=== PATIENT | female | born 1945 | race Caucasian/White ===

== ENCOUNTER → 2016-06-02 | Outpatient (CLI) | payer OTHER ==
[~2016-06-02] MED LIST: ACETAMINOPHEN PO; CHOL1CAP57 PO; CYAN500T13 PO; DXM/4 PO; FERR1TAB23 PO; FNTTP25 TOP; HYDR1SOL10 PO; HYDROCODONE PO; MAGIC1 PO; MRN/25 PO; MULT-513 PO; ONDA4TAB4 PO; SODI5OIN4; TOBR0.3S; [UNRECOGNIZED DRUG - CODE]
--- NOTE | 2016-06-02 14:39 | DIAGNOSTIC IMAGING REPORT ---
CT SCAN OF THE CHEST, ABDOMEN, AND PELVIS WITH IV CONTRAST CLINICAL HISTORY: Colorectal carcinoma. COMPARISON STUDY: CT scan of the chest, abdomen, and pelvis dated 03/17/2016. Chest CT dated 03/20/2014. Abdominal CT dated 03/15/2014.rrrrrr TECHNIQUE: Following the IV administration of 92 of Optiray 320, CT scan of the chest, abdomen, and pelvis was performed from the thoracic inlet to the proximal femora. Images are reviewed in the axial, sagittal, and coronal planes. IV contrast was administered without complication. Automated dose control exposure was utilized. CT DOSE: 453.11 mGycm FINDINGS: CHEST: Thyroid: Imaged portions of the thyroid gland are normal in size and attenuation. Thoracic aorta: There is atherosclerotic calcification of the thoracic aorta, which is normal in caliber and demonstrates standard 3-vessel arch anatomy. No dissection is seen. A right internal jugular central venous infusion port is in place. Pulmonary vasculature: The pulmonary trunk is normal in caliber. There are no filling defects identified in the central pulmonary vessels to indicate pulmonary was. Note that this examination was not protocoled for evaluation of the pulmonary arteries. Heart: The heart is normal in size and configuration, and without pericardial effusion. There are scattered coronary artery calcifications. Lungs and pleural spaces: There is no airspace consolidation or pleural effusion. Multifocal pulmonary metastatic disease is overall similar in appearance to the 03/17/2016 examination. There are greater than 30 lesions. Presented lesions at the left apex on image #62 measuring 7 mm and in the lingula on image #140 measuring 9 mm are not significant changed. There is increasing soft tissue thickening and nodularity in the right middle lobe along the major fissure seen on image #151. This measures 1.1 x 2.4 cm (previously measuring up to 0.6 cm in thickness). The trachea and central airways are clear. Mediastinum: There are mildly enlarged mediastinal lymph nodes. These have slightly increased in size from 03/17/2016. A prevascular node on image #103 measures 7 mm short axis (previously measuring 3 mm). A subcarinal node on image #121 measures 12 mm short axis (previously measuring 7 mm). Kellee: Prominent hilar lymph nodes measure up to 6 mm in short axis. Axillae: There is no axillary lymphadenopathy. Bony thorax: The skeletal structures are osteopenic. No lytic or blastic lesions are identified. ABDOMEN AND PELVIS: Liver: The contrast-enhanced liver is normal in size, contour, and attenuation. There is no intrahepatic or ductal dilatation. The hepatic veins and portal veins are patent. A 10 mm low-attenuation lesion segment VIII seen on image #86 and a 10 mm low-attenuation lesion in segment IVb seen on image #98 are new from 03/17/2016 and concerning for metastatic disease. Gallbladder: Unremarkable. Spleen: Normal in size and attenuation. Pancreas: Unremarkable. Adrenal glands: Unremarkable. Kidneys: There is markedly asymmetric cortical atrophy of the left kidney as compared to the right. There is left hydroureteronephrosis to the level of the central necrotic retroperitoneal lymphadenopathy. There is no right-sided hydronephrosis. There is diminished enhancement of the left kidney as compared to the right. The right kidney enhances homogeneously. Abdominal vasculature: The abdominal aorta is normal in course and caliber noting moderate atherosclerotic calcification. Bowel: There are postoperative changes from partial colectomy with transverse colostomy. A mucous fistula is present. No bowel obstruction is seen. The appendix is well-visualized and normal. Peritoneum: There is no intraperitoneal free air or abdominal ascites. An 8 mm peritoneal nodule in the left upper quadrant on image 130 is new from the 2014 examination and consistent with a peritoneal metastasis. Lymphadenopathy: Left iliac chain lymphadenopathy is modestly increased in size from 03/17/2016. This measures 2.7 x 2.0 cm in axial dimension (previously measuring 2.2 x 1.8 cm). A left periaortic node on image #156 has increased in size, now measuring up to 11 mm. Pelvic viscera: The bladder is decompressed and grossly unremarkable. A midline pelvic mass is similar appearance to 03/17/2016 examination and measures approximately 7 x 5 x 5 cm. Skeletal structures: The skeletal structures are osteopenic. There is mild lumbosacral spondylosis. No lytic or blastic lesions are seen. IMPRESSION: 1. Findings are consistent with modest progression of disease as compared to 03/17/2016. 2. Multifocal pulmonary metastatic disease is largely similar to the prior study. There is increasing soft tissue thickening and nodularity in the right middle lobe along the major fissure. 3. Mildly enlarged mediastinal lymph nodes have also modestly increased in size from previous 4. There are two new 10 mm low-attenuation hepatic lesions which are highly concerning for developing hepatic metastases. 5. Modest increase in size in of retroperitoneal and left iliac chain lymphadenopathy. 6. A peritoneal implant in the left upper quadrant is similar to 03/17/2016. 7. A heterogeneous mass in the midline pelvis is overall similar to previous. 8. There are postoperative changes from partial colon resection with transverse colostomy. No bowel obstruction is seen. 9. The left kidney is markedly atrophic and there is left hydroureteronephrosis to the level of left iliac chain adenopathy. This is similar to previous. Electronically signed by: Jose A Garcia M.D. 06/02/2016 2:36 PM Dictated Date/Time: 06/02/2016 2:12 PM
== END | disposition home or self-care (01) ==
LOC: C.CTS 13:45
PROVIDERS: ATTEND Nurse Practitioner
DX: C18.7 Malignant neoplasm of sigmoid colon (principal); C78.00 Secondary malignant neoplasm of unspecified lung; K76.9 Liver disease, unspecified; N26.1 Atrophy of kidney (terminal); N13.30 Unspecified hydronephrosis; R59.0 Localized enlarged lymph nodes

== ENCOUNTER → 2016-09-07 | Outpatient (CLI) | payer OTHER ==
--- NOTE | 2016-09-07 15:05 | DIAGNOSTIC IMAGING REPORT ---
PET/CT CLINICAL HISTORY: Metastatic colorectal carcinoma. TECHNIQUE: A PET/CT was performed from the skull base through the upper thighs following intravenous injection of 12.94 mCi of F 18 FDG IV. The injection was performed at 9:44 AM on September 07, 2016 and imaging began at 10:50 AM on September 07, 2016. Unenhanced CT was performed for attenuation correction purposes and anatomic localization. CT DOSE: 164.50 mGycm COMPARISON STUDY: PET/CT April 11, [address] of the chest, abdomen and pelvis June 02, 2016. FINDINGS: Head and neck: The left maxillary sinus is largely opacified with an air-fluid level. No cervical lymphadenopathy is present. There is no suspicious FDG uptake within the neck. A right internal jugular [id number] is in place. Chest: There has been interval development of a moderate right pleural effusion since chest CT of June 02, 2016. This is likely malignant. Innumerable pulmonary nodules have increased in size and number since exam of June 02, 2016. These include a 1.5 cm left lower lobe nodule shown image 112 of 263. This previously measured 0.8 cm. A 1.4 cm right lower lobe shown on image 105 previously measured 0.7 cm. These nodules demonstrate moderate to marked FDG uptake. The SUV max of these nodules is 5. Numerous pleural-based nodules within the right hemithorax are noted. There are multiple mildly enlarged FDG avid mediastinal and bilateral hilar lymph nodes. An index right paratracheal lymph node shown on image 76 measures 1.1 cm and has an SUV max of 5. These nodes have significantly increased in size since prior chest CT of June 02, 2016. Abdomen and Pelvis: There has been significant increase in size and number of numerous hepatic metastases since exam of June 02, 2016. An index medial segment lesion shown on image 34 measures 2.6 cm. It previously measured 1 cm on study of June 02, 2016. This lesion has marked FDG uptake with an SUV max of 5.8. An index right hepatic lobe lesion shown on image 127 measures 2.3 cm. This has marked FDG uptake. It previously measured 1 cm. There is no evidence for a bowel obstruction. A transverse colostomy is again noted. A 5.3 cm pelvic mass is similar to prior exam of June 02, 2016. This has moderate FDG uptake with an SUV max of 4. Multiple para-aortic lymph nodes have increased in size and number since prior CT of June 02 2016. A 2.3 cm conglomerate left paraaortic kanu mass previously measured 1.6 cm. Musculoskeletal: There has been interval development of innumerable FDG avid skeletal lesions which are not well depicted on the CT images. An index left iliac bone lesion has a SUV max of 4.4. These lesions are noted throughout visualized skeletal structures. No pathologic fracture is identified. IMPRESSION: Marked progression of metastatic disease since CT of June 02, 2016 with development of a moderate right pleural effusion which is likely malignant. Significant progression of extensive pulmonary, hepatic, kanu and skeletal metastases. Electronically signed by: Estuardo Kent M.D. 09/07/2016 3:05 PM Dictated Date/Time: 09/07/2016 11:47 AM
== END | disposition home or self-care (01) ==
LOC: C.PET 09:00
PROVIDERS: ATTEND Internal Medicine Hematology & Oncology
DX: C18.7 Malignant neoplasm of sigmoid colon (principal)

== ENCOUNTER 2016-09-28 09:53 | Inpatient (IN) | payer OTHER ==
[~2016-09-28] VITALS: Ht 152.4 cm; Wt 43.2 kg
[~2016-09-28 09:53] MED LIST changes: -DXM/4 PO; -FNTTP25 TOP; -HYDR1SOL10 PO
[2016-09-28] MEDS ORDERED: SODIUM CHLORIDE 0.9% 1000ML 1,000 ML IV ONE (10:15)
[2016-09-28] MEDS: VANCOMYCIN 1GM/270ML NSS IV STA (10:15)
[2016-09-28] MEDS ORDERED: OPTIRAY 320 IV PRN (10:30)
[2016-09-28] MEDS ORDERED: ALBUT/IPRATROP 3MG/0.5MG NEB 3 ML VIAL INH ONE (10:30)
--- NOTE | 2016-09-28 10:30 | EMERGENCY ROOM VISIT NOTE ---
History Report prepared by Naida: Sherly Dawson Under the Supervision of: Dr. Ger Crawford M.D. First contact with patient: 10:04 Stated Complaint: WEAKNESS/SOB/ILLNESS History of Present Illness The patient is a 71 year old female who presents to the Emergency Room with complaints of persistent, worsening weakness that began three days ago. Per the patient's sister, the patient has been generally weak and has been short of breath. 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 The patient's sister notes that the patient is scheduled for another infusion this . She notes that the patient has complained of chest pain. Nursing staff reports that the patient has been experiencing increased lower abdominal pain, but notes that her Fentanyl patch was just increased. Nursing staff denies the patient wearing supplemental oxygen at home. The patient's sister notes that the patient has a skin tear to her left foot. Source of History: patient, family (sister), nursing staff Onset: three days ago Position: other (global) Quality: other (weakness) Timing: worsening, other (persistent) Associated Symptoms: + SOB, + abdominal pain (lower), + chest pain Review of Systems See HPI for pertinent positives & negatives. A total of 10 systems reviewed and were otherwise negative. Past Medical & Surgical Medical Problems: (1) Adenocarcinoma of sigmoid colon (2) 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 (3) SOB (shortness of breath) Family History Cancer Social History Smoking Status: Former Smoker Alcohol Use: none Drug Use: none Marital Status: single Housing Status: lives with family Occupation Status: unemployed Current/Historical Medications Scheduled Dexamethasone (Decadron), 8 MG PO DAILY Diphenhy/Alum/Mag/Sucralfa (Magic Swizzle - Diphenhy/Alum/Mag/Sucralfa), 2 TSP PO Q4H Fentanyl (Fentanyl), 25 MCG TOP [id number] Scheduled PRN Hydrocodone-Acetaminophen (Hydrocodone/Acetami 7.5/325MG 15ML), 7.5 ML PO Q6H PRN for Pain Allergies Coded Allergies: No Known Allergies (Unverified , 03/05/15) Physical Exam Vital Signs Date Time Temp Pulse Resp B/P Pulse Ox O2 Delivery O2 Flow Rate FiO2 09/28/16 14:47 138 24 98/68 88 BiPAP 09/28/16 14:07 139 24 112/77 87 BiPAP 09/28/16 13:53 141 26 105/63 89 BiPAP 09/28/16 13:43 145 24 74/44 89 BiPAP 09/28/16 13:27 136 09/28/16 11:57 112 22 117/79 97 BiPAP 09/28/16 11:22 93 60 09/28/16 11:22 123 30 93 BiPAP/CPAP 60 09/28/16 11:22 116 22 127/84 93 BiPAP 09/28/16 10:33 130 34 93 BiPAP 50 09/28/16 10:33 130 93 50 09/28/16 10:27 92 Non-Rebreather 09/28/16 10:20 37.4 129 26 114/80 88 Nasal Cannula 5.0 Non-Rebreather 09/28/16 10:20 88 Nasal Cannula 5.0 09/28/16 10:05 126 Physical Exam GENERAL: Patient is cachectic in appearance, appears acutely ill. HEAD: Normocephalic atraumatic EYES: Ocular movements intact pupils equal and react to light OROPHARYNX mucous membranes are moist no exudates present no erythema or edema present NECK: Supple no nuchal rigidity CHEST: Good equal expansion LUNGS: Clear and equal to auscultation CARDIAC: Normal S1 and S2 ABDOMEN: Soft nontender no guarding BACK: No CVA tenderness EXTREMITIES: No pain upon palpation normal muscle strength in all groups no clubbing cyanosis or edema NEURO: Patient is following commands is answering questions appropriately. Alert and oriented x3 Cranial Nerves 2-12 grossly intact Medical Decision & Procedures ER Provider Diagnostic Interpretation: Radiology results as stated below per my review and radiologist interpretation: CHEST ONE VIEW PORTABLE HISTORY: Sepsis COMPARISON: PET CT 09/07/2016. Chest CT 06/02/2016. FINDINGS: Right jugular Port-A-Cath terminates in the SVC. The heart is normal in size. No pneumothorax. Moderate right pleural effusion is again noted. There is a trace left pleural effusion. Multiple scattered pulmonary nodules are not significant changed. Diffuse interstitial and vascular thickening is progressed. IMPRESSION: 1. Moderate right and trace left pleural effusions. 2. Multiple pulmonary nodules consistent with metastatic disease are again noted. 3. Progression of the interstitial thickening. This may represent superimposed pulmonary edema. Electronically signed by: Jules Rosales M.D. 09/28/2016 10:43 AM Dictated Date/Time: 09/28/2016 10:[address] ANGIOGRAM OF THE CHEST; CT SCAN OF THE ABDOMEN AND PELVIS WITH IV CONTRAST CLINICAL HISTORY: Generalized abdominal pain. Dyspnea. History of widespread metastatic colorectal carcinoma. COMPARISON STUDY: CT scan of the chest, abdomen, and pelvis dated 06/02/2016. Chest CT dated 03/20/2014. Abdominal CT dated 03/15/2014. PET/CT dated 09/07/2016. TECHNIQUE: Following the IV administration of 94 of Optiray 320, CT angiogram of the chest is performed from the upper abdomen to the thoracic inlet utilizing the pulmonary embolus protocol. Images reviewed in the axial, sagittal, coronal planes. 3-D MIPS images are created and assessed. CT scan of the abdomen and pelvis was then performed from the lung bases to the proximal femora. Images are reviewed in the axial, sagittal, and coronal planes. IV contrast was administered without complication. Automated dose control exposure was utilized. Examination is degraded by motion artifact, as well as by streak artifact from the arms which could not be elevated above the chest or abdomen. CT DOSE: 438.43 mGy.cm FINDINGS: CHEST: Thyroid: Atrophic. Thoracic aorta: There is atherosclerotic calcification of the thoracic aorta, which is normal in caliber and demonstrates standard 3-vessel arch anatomy. No dissection is seen. A right internal jugular central venous infusion port is in place. Pulmonary vasculature: The pulmonary trunk is normal in caliber. There are no filling defects identified in the main, lobar, or segmental pulmonary vessels to indicate pulmonary embolus. Heart: The heart is normal in size and configuration, and without pericardial effusion. There are scattered coronary artery calcifications. Lungs and pleural spaces: There is a large right pleural effusion with near-complete atelectasis of the right middle and lower lobes. The right upper lobe remains aerated. This has increased in size from 09/07/2016. There is a small pleural effusion on the left, new from previous. Diffuse/widespread pulmonary metastatic disease has not significant changed from 09/07/2016. There is a lesion at the left lung base measures 2.8 cm as seen on image #71. Groundglass consolidation is seen throughout the left lung. The trachea and central airways are clear. Mediastinum: Numerous mildly enlarged mediastinal lymph nodes are similar to previous. Kellee: Enlarged hilar lymph nodes are similar to previous and measure up to 11 mm short axis. Axillae: There is no axillary lymphadenopathy. Bony thorax: The skeletal structures are osteopenic. No lytic or blastic lesions are clearly identified. Note that skeletal metastases were visualized by PET. ABDOMEN AND PELVIS: Liver: The contrast-enhanced liver is normal in size, contour, and attenuation. There is no intrahepatic or ductal dilatation. The hepatic veins and portal veins are patent. Multifocal hepatic metastatic disease has not significantly changed from the 09/07/2016 pad examination. The largest lesion is seen in the right lobe on image #147 and measures 2.8 cm. Lesions are present within all hepatic segments. Gallbladder: Unremarkable. Spleen: Normal in size and attenuation. Pancreas: Atrophic and grossly unremarkable. Adrenal glands: There is a 7 mm low-attenuation left adrenal nodule. The right adrenal gland is unremarkable. Kidneys: There is markedly asymmetric cortical atrophy of the left kidney as compared to the right. There is left hydroureteronephrosis to the level of the essentially necrotic retroperitoneal lymphadenopathy. There is no right-sided hydronephrosis. There is diminished enhancement of the left kidney as compared to the right. The right kidney enhances homogeneously. There is a new 1.7 cm low-attenuation lesion in the upper pole the right kidney seen on image #167. Abdominal vasculature: The abdominal aorta is normal in course and caliber noting moderate to advanced atherosclerotic calcification end irregularity. Thrombus is identified within the inferior vena cava on image #241. Bowel: There are postoperative changes from partial colectomy with transverse colostomy. A mucous fistula is present. No bowel obstruction is seen. Moderate fecal retention is noted in the right colon. The appendix is well-visualized and normal. Peritoneum: There is trace abdominopelvic ascites. No intraperitoneal free air is seen. Small foci of peritoneal metastatic disease are similar to previous. A digital media representative nodule in the left upper quadrant seen on image #160 measures 9 mm. Lymphadenopathy: Left iliac chain lymphadenopathy has not significant change from 09/07/2016. This measures 2.6 x 2.0 0 cm in axial dimension. Multifocal retroperitoneal adenopathy is again noted. Pelvic viscera: The bladder is decompressed around a Manuel catheter and not well evaluated. The uterus is surgically absent. A midline pelvic mass seen on image #338 measures approximately 7 x 5 x 5 cm. Skeletal structures: The skeletal structures are osteopenic. There is mild lumbosacral spondylosis. No lytic or blastic lesions are clearly seen. Metastatic bony disease was noted on the recent PET scan. IMPRESSION: 1. There is no evidence of pulmonary embolus in the main, lobar, or segmental pulmonary arteries. 2. There are no acute infectious or inflammatory findings in the abdomen or pelvis. 3. Ground glass consolidation is seen throughout the left lung. Currently clinically for evidence of an infectious/inflammatory pneumonitis. 4. Intraluminal thrombus is identified within the inferior vena cava. 5. There is a large right pleural effusion with near-complete atelectasis of the right middle and right lower lobes. This has increased from 09/07/2016. 6. There is a trace left pleural effusion. 7. Findings of extensive/widespread metastatic disease throughout the chest, abdomen, and pelvis have not significantly changed from the 09/07/2016 PET assessment. 8. There are postoperative changes from partial colon resection with transverse colostomy. No bowel obstruction is seen. 9. The left kidney is markedly atrophic and there is left hydroureteronephrosis to the level of left iliac chain adenopathy. This is similar to previous. 10. There is a new low-attenuation lesion in the upper pole the right kidney, likely representing a renal metastasis. 11. Trace abdominopelvic ascites. 12. See above for detailed findings. Electronically signed by: Jose A Garcia M.D. 09/28/2016 12:19 PM Dictated Date/Time: 09/28/2016 11:55 AM Laboratory Results 09/28/16 10:40 Red Blood Count 6.17, Mean Corpuscular Volume 75.9, Mean Corpuscular Hemoglobin 25.4, Mean Corpuscular Hemoglobin Concent 33.5, Neutrophils (%) (Auto) 95.9, Lymphocytes (%) (Auto) 1.1, Monocytes (%) (Auto) 2.0, Eosinophils (%) (Auto) 0.0 , Basophils (%) (Auto) 0.1, Neutrophils # (Auto) 25.28, Lymphocytes # (Auto) 0.30, Monocytes # (Auto) 0.52, Eosinophils # (Auto) 0.00, Basophils # (Auto) 0.03 Test 09/28/16 10:40 09/28/16 11:00 09/28/16 11:18 09/28/16 11:25 White Blood Count 26.36 K/uL (4.8-10.8) Red Blood Count 6.17 M/uL (4.2-5.4) Hemoglobin 15.7 g/dL (12.0-16.0) Hematocrit 46.8 % (37-47) Mean Corpuscular Volume 75.9 fL (80-100) Mean Corpuscular Hemoglobin 25.4 pg (25-34) Mean Corpuscular Hemoglobin Concent 33.5 g/dl (32-36) Platelet Count 161 K/uL (130-400) Neutrophils (%) (Auto) 95.9 % Lymphocytes (%) (Auto) 1.1 % Monocytes (%) (Auto) 2.0 % Eosinophils (%) (Auto) 0.0 % Basophils (%) (Auto) 0.1 % Neutrophils # (Auto) 25.28 K/uL (1.4-6.5) Lymphocytes # (Auto) 0.30 K/uL (1.2-3.4) Monocytes # (Auto) 0.52 K/uL (0.11-0.59) Eosinophils # (Auto) 0.00 K/uL (0-0.5) Basophils # (Auto) 0.03 K/uL (0-0.2) RDW Standard Deviation 53.6 fL (36.4-46.3) RDW Coefficient of Variation 19.7 % (11.5-14.5) Immature Granulocyte % (Auto) 0.9 % Immature Granulocyte # (Auto) 0.23 K/uL (0.00-0.02) Echinocytes 1+ Est Creatinine Clear Calc Drug Dose 32.8 ml/min Total Bilirubin 0.6 mg/dl (0.2-1) Aspartate Amino Transf (AST/SGOT) 32 U/L (15-37) Alanine Aminotransferase (ALT/SGPT) 41 U/L (12-78) Alkaline Phosphatase 271 U/L (45-117) Total Creatine Kinase 78 U/L (26-192) Creatine Kinase MB 7.9 ng/ml (0.5-3.6) Creatine Kinase MB Ratio 10.1 (0-3.0) Troponin I 0.326 ng/ml (0-0.045) Total Protein 6.1 gm/dl (6.4-8.2) Albumin 2.1 gm/dl (3.4-5.0) Globulin 4.0 gm/dl (2.5-4.0) Albumin/Globulin Ratio 0.5 (0.9-2) Bedside Lactic Acid Venous 4.86 mmol/L (0.90-1.70) Bedside Hemoglobin 17.7 g/dl (12.0-16.0) Bedside Hematocrit 52 % (37-47) Bedside Sodium 134 mEq/L (135-144) Bedside Potassium 4.4 mEq/L (3.3-5.0) Bedside Chloride 100 mEq/L (101-112) Bedside Total CO2 19 mEq/l (24-31) Bedside Blood Urea Nitrogen 29 mg/dl (7-18) Bedside Creatinine 1.0 mg/dl (0.6-1.3) Bedside Glucose (other) 147 mg/dl (70-99) Bedside Ionized Calcium (Markus) 1.25 mmol/l (1.12-1.32) Prothrombin Time 13.2 SECONDS (9.0-12.0) Prothromb Time International Ratio 1.2 (0.9-1.1) Activated Partial Thromboplast Time 29.7 SECONDS (21.0-31.0) Partial Thromboplastin Ratio 1.1 Test 09/28/16 12:30 09/28/16 13:08 09/28/16 13:55 Urine Color YELLOW Urine Appearance CLOUDY (CLEAR) Urine pH 5.0 (4.5-7.5) Urine Specific [place] 1.043 (1.000-1.030) Urine Protein TRACE (NEG) Urine Glucose (UA) NEG (NEG) Urine Ketones NEG (NEG) Urine Occult Blood TRACE (NEG) Urine Nitrite NEG (NEG) Urine Bilirubin NEG (NEG) Urine Urobilinogen NEG (NEG) Urine Leukocyte Esterase NEG (NEG) Urine WBC (Auto) >30 /hpf (0-5) Urine RBC (Auto) 0-4 /hpf (0-4) Urine Hyaline Casts (Auto) >30 /lpf (0-5) Urine Epithelial Cells (Auto) >30 /lpf (0-5) Urine Bacteria (Auto) NEG (NEG) Urine Renal Epithelial Cells 5-10 /lpf (0-5) Urine Pathogenic Casts >30 WBC CASTS /lpf (0) Labs reviewed by ED physician. Medications Administered Medications (Trade) Dose Ordered Sig/Sarahi Route Start Time Stop Time Status Last Admin Dose Admin Sodium Chloride (Nss 1000ml) 1,000 ml @ 999 mls/hr Q1H1M ONCE IV 09/28/16 10:15 09/28/16 11:15 DC 09/28/16 11:01 999 MLS/HR Piperacillin Sod/ Tazobactam Sod (Zosyn Iv) 4.5 gm ONE STAT IV 09/28/16 10:15 09/28/16 10:17 DC 09/28/16 11:52 4.5 GM Levofloxacin (Levaquin / D5W) 750 mg ONE STAT IV 09/28/16 10:15 09/28/16 10:17 DC 09/28/16 11:52 750 MG Hydromorphone HCl (Dilaudid Inj) 1 mg NOW STAT IV 09/28/16 10:54 09/28/16 10:55 DC 09/28/16 11:00 1 MG Ondansetron HCl (Zofran Inj) 4 mg NOW STAT IV 09/28/16 10:54 09/28/16 10:55 DC 09/28/16 10:59 4 MG Ipratropium [place] (Atrovent 0.02% 0.5MG/2.5ML Neb) 1.5 mg ONE STAT INH 09/28/16 11:22 09/28/16 13:00 DC 09/28/16 11:22 1.5 MG Levalbuterol (Xopenex 1.25MG/ 0.5ML Neb) 3.75 mg ONE STAT INH 09/28/16 11:22 09/28/16 13:00 DC 09/28/16 11:22 3.75 MG Vancomycin HCl 1 gm 1 gm STK-MED ONCE .ROUTE 09/28/16 12:19 09/28/16 12:20 DC 09/28/16 12:19 1 GM Sodium Chloride (Nss 500ml) 290 ml @ 999 mls/hr Q18M STAT IV 09/28/16 12:35 09/28/16 12:52 DC 09/28/16 12:35 999 MLS/HR Lorazepam (Ativan Inj) 0.5 mg NOW STAT IV 09/28/16 12:44 09/28/16 12:46 DC 09/28/16 12:51 0.5 MG ECG Indication: weakness Rate (beats per minute): 124 Rhythm: sinus tachycardia Findings: no acute ischemic change, no ectopy, other (short MT) ED Course 1006: Past medical records reviewed. The patient was evaluated in room C9. A complete history and physical examination was performed. 1015: Ordered levofloxacin 750 mg IV, Vancomycin HCl 1 gm IV, Zosyn IV 4.5 gm IV , Sodium Chloride 1000 ml @ 999 mls/hr IV. 1030: Ordered Duoneb 12 ml INH. 1054: Ordered Zofran Inj 4 mg IV, Dilaudid Inj 1 mg IV. 1107: I spoke to respiratory at this time regarding the patient. 1122: Ordered Levalbuterol 3.75 mg INH, Ipratropium [place] 1.5 mg INH. 1144: I reevaluated the patient and she is resting more comfortably. 1230: I reevaluated the patient and she is resting. I discussed the exam findings with her and her sister and I discussed the treatment plan. They verbalized complete understanding and agreement. The patient will be evaluated for further treatment. 1235: Ordered Sodium Chloride 290 ml @ 999 mls/hr IV. 1240: I discussed the patient's case with URI Vila. She is going to evaluate the patient for further treatment. 1244: Ordered Ativan Inj 0.5 mg IV. Medical Decision Differential diagnosis: Etiologies such as sepsis, UTI, pneumonia, metabolic, electrolyte abnormalities , cardiac sources, intracerebral event, toxicologic, neurologic, as well as others were entertained. This is a 71-year-old female who presents emergency department hypoxic. The patient is requiring a large amount of oxygen in the emergency department therefore she was placed on BiPAP. The patient was pancultured up and given a normal saline bolus 30 mL's per kilogram. She was started on antibiotics. She does have an elevation in her white blood count 26. CAT scan does not show any evidence of a PE however she does appear to have pneumonia. I did discuss the case with both intensive care as well as the hospitalist service. An IV was established, the patient given normal saline bolus, Dilaudid, Zofran. Repeat examination revealed improvement the patient's symptoms. Consults Time Called: 1211 Consulting Physician: URI Vila Returned Call: 1240 I discussed the patient's case with URI Vila. She is going to evaluate the patient for further treatment. Impression Primary Impression: Sepsis Additional Impression: Pneumonia Critical Care I have personally spent greater than 90 minutes of critical care time in the direct management of this patient. This includes bedside care, interpretation of diagnostic studies, and testing, discussion with consultants, patient, and family members, and other required patient management activities. This 90 minutes is in excess of all separately billable procedures. Scribe Attestation The scribe's documentation has been prepared under my direction and personally reviewed by me in its entirety. I confirm that the note above accurately reflects all work, treatment, procedures, and medical decision making performed by me. Departure Information Dispostion Being Evaluated By Hospitalist Akhil Holcomb M.D. (PCP) Problem Qualifiers Primary Impression: Sepsis Sepsis type: sepsis due to unspecified organism Qualified Codes: A41.9 - Sepsis, unspecified organism Additional Impression: Pneumonia Pneumonia type: due to unspecified organism Laterality: unspecified laterality Lung location: unspecified part of lung Qualified Codes: J18.9 - Pneumonia, unspecified organism
[2016-09-28 10:33] VITALS: PULSE 130; O2SAT 93
[2016-09-28] MEDS ORDERED: FNTTP25 TOP (10:41)
[2016-09-28] MEDS ORDERED: HYDR1SOL10 PO (10:41)
[2016-09-28] MEDS ORDERED: DXM/4 PO (10:41)
--- NOTE | 2016-09-28 10:45 | DIAGNOSTIC IMAGING REPORT ---
CHEST ONE VIEW PORTABLE HISTORY: Sepsis COMPARISON: PET CT 09/07/2016. Chest CT 06/02/2016. FINDINGS: Right jugular Port-A-Cath terminates in the SVC. The heart is normal in size. No pneumothorax. Moderate right pleural effusion is again noted. There is a trace left pleural effusion. Multiple scattered pulmonary nodules are not significant changed. Diffuse interstitial and vascular thickening is progressed. IMPRESSION: 1. Moderate right and trace left pleural effusions. 2. Multiple pulmonary nodules consistent with metastatic disease are again noted. 3. Progression of the interstitial thickening. This may represent superimposed pulmonary edema. Electronically signed by: Jules Rosales M.D. 09/28/2016 10:43 AM Dictated Date/Time: 09/28/2016 10:41 AM
[2016-09-28] MEDS ORDERED: HYDROmorphone INJ 1 MG/ML SYR IV STA (10:54)
[2016-09-28] MEDS ORDERED: ONDANSETRON INJ 2 MG/ML 2 ML VIAL IV STA (10:54)
[2016-09-28] MEDS: LEVAQUIN 750MG / 150ML D5W IV STA ×2 (11:00→11:52)
[2016-09-28] MEDS: PIPERACILLIN/TAZOBACTAM 4.5 GM/100ML D5W IV STA ×2 (11:00→11:52)
[2016-09-28 11:07] LABS: HEMATOCRIT 46.8 % (37-47); MEAN CELL VOLUME 75.9 fL (80-100); MEAN CORPUSCULAR HEMOGLOBIN 25.4 pg (25-34); MEAN CORPUSCULAR HGB CONC 33.5 g/dl (32-36); PLATELET COUNT 161 K/uL (130-400); RED BLOOD COUNT 6.17 M/uL (4.2-5.4); WHITE BLOOD COUNT 26.36 K/uL (4.8-10.8)
[2016-09-28 11:22] VITALS: PULSE 123; O2SAT 93
[2016-09-28] MEDS ORDERED: LEVALBUTEROL 1.25MG/0.5ML NEB INH STA (11:22)
[2016-09-28] MEDS ORDERED: IPRATROPIUM BROMIDE NEB SOLN 0.02% 2.5 ML VIAL INH STA (11:22)
[2016-09-28 11:24] LABS: CALCIUM 9.9 mg/dl (8.5-10.1); CREATININE 1.1 mg/dl (0.60-1.20); POTASSIUM 4.4 mmol/L (3.5-5.1)
[2016-09-28 11:30] LABS: ISTAT HEMOGLOBIN 17.7 g/dl (12.0-16.0); ISTAT IONIZED CALCIUM 1.25 mmol/l (1.12-1.32)
[2016-09-28 11:36] LABS: ALB/GLOB RATIO 0.5 (0.9-2); BASO % 0.1 %; BASO ABS # 0.03 K/uL (0-0.2); CKMB/CK RATIO 10.1 (0-3.0); COMPLETE YES; ECHINOCYTES 1+; IG% 0.9 %; LYMPH % 1.1 %; NEUT % 95.9 %
[2016-09-28 12:00] LABS: INR 1.2 (0.9-1.1); PARTIAL THROMBOPLASTIN RATIO 1.1; PROTHROMBIN TIME (PATIENT) 13.2 SECONDS (9.0-12.0)
[2016-09-28] MEDS ORDERED: VANCOMYCIN 1GM/270ML NSS ONE (12:19)
--- NOTE | 2016-09-28 12:21 | DIAGNOSTIC IMAGING REPORT ---
CT ANGIOGRAM OF THE CHEST; CT SCAN OF THE ABDOMEN AND PELVIS WITH IV CONTRAST CLINICAL HISTORY: Generalized abdominal pain. Dyspnea. History of widespread metastatic colorectal carcinoma. COMPARISON STUDY: CT scan of the chest, abdomen, and pelvis dated 06/02/2016. Chest CT dated 03/20/2014. Abdominal CT dated 03/15/2014. PET/CT dated 09/07/2016. TECHNIQUE: Following the IV administration of 94 of Optiray 320, CT angiogram of the chest is performed from the upper abdomen to the thoracic inlet utilizing the pulmonary embolus protocol. Images reviewed in the axial, sagittal, coronal planes. 3-D MIPS images are created and assessed. CT scan of the abdomen and pelvis was then performed from the lung bases to the proximal femora. Images are reviewed in the axial, sagittal, and coronal planes. IV contrast was administered without complication. Automated dose control exposure was utilized. Examination is degraded by motion artifact, as well as by streak artifact from the arms which could not be elevated above the chest or abdomen. CT DOSE: 438.43 mGy.cm FINDINGS: CHEST: Thyroid: Atrophic. Thoracic aorta: There is atherosclerotic calcification of the thoracic aorta, which is normal in caliber and demonstrates standard 3-vessel arch anatomy. No dissection is seen. A right internal jugular central venous infusion port is in place. Pulmonary vasculature: The pulmonary trunk is normal in caliber. There are no filling defects identified in the main, lobar, or segmental pulmonary vessels to indicate pulmonary embolus. Heart: The heart is normal in size and configuration, and without pericardial effusion. There are scattered coronary artery calcifications. Lungs and pleural spaces: There is a large right pleural effusion with near-complete atelectasis of the right middle and lower lobes. The right upper lobe remains aerated. This has increased in size from 09/07/2016. There is a small pleural effusion on the left, new from previous. Diffuse/widespread pulmonary metastatic disease has not significant changed from 09/07/2016. There is a lesion at the left lung base measures 2.8 cm as seen on image #71. Groundglass consolidation is seen throughout the left lung. The trachea and central airways are clear. Mediastinum: Numerous mildly enlarged mediastinal lymph nodes are similar to previous. Kellee: Enlarged hilar lymph nodes are similar to previous and measure up to 11 mm short axis. Axillae: There is no axillary lymphadenopathy. Bony thorax: The skeletal structures are osteopenic. No lytic or blastic lesions are clearly identified. Note that skeletal metastases were visualized by PET. ABDOMEN AND PELVIS: Liver: The contrast-enhanced liver is normal in size, contour, and attenuation. There is no intrahepatic or ductal dilatation. The hepatic veins and portal veins are patent. Multifocal hepatic metastatic disease has not significantly changed from the 09/07/2016 pad examination. The largest lesion is seen in the right lobe on image #147 and measures 2.8 cm. Lesions are present within all hepatic segments. Gallbladder: Unremarkable. Spleen: Normal in size and attenuation. Pancreas: Atrophic and grossly unremarkable. Adrenal glands: There is a 7 mm low-attenuation left adrenal nodule. The right adrenal gland is unremarkable. Kidneys: There is markedly asymmetric cortical atrophy of the left kidney as compared to the right. There is left hydroureteronephrosis to the level of the essentially necrotic retroperitoneal lymphadenopathy. There is no right-sided hydronephrosis. There is diminished enhancement of the left kidney as compared to the right. The right kidney enhances homogeneously. There is a new 1.7 cm low-attenuation lesion in the upper pole the right kidney seen on image #167. Abdominal vasculature: The abdominal aorta is normal in course and caliber noting moderate to advanced atherosclerotic calcification end irregularity. Thrombus is identified within the inferior vena cava on image #241. Bowel: There are postoperative changes from partial colectomy with transverse colostomy. A mucous fistula is present. No bowel obstruction is seen. Moderate fecal retention is noted in the right colon. The appendix is well-visualized and normal. Peritoneum: There is trace abdominopelvic ascites. No intraperitoneal free air is seen. Small foci of peritoneal metastatic disease are similar to previous. A veterans employment representative nodule in the left upper quadrant seen on image #160 measures 9 mm. Lymphadenopathy: Left iliac chain lymphadenopathy has not significant change from 09/07/2016. This measures 2.6 x 2.0 0 cm in axial dimension. Multifocal retroperitoneal adenopathy is again noted. Pelvic viscera: The bladder is decompressed around a Manuel catheter and not well evaluated. The uterus is surgically absent. A midline pelvic mass seen on image #338 measures approximately 7 x 5 x 5 cm. Skeletal structures: The skeletal structures are osteopenic. There is mild lumbosacral spondylosis. No lytic or blastic lesions are clearly seen. Metastatic bony disease was noted on the recent PET scan. IMPRESSION: 1. There is no evidence of pulmonary embolus in the main, lobar, or segmental pulmonary arteries. 2. There are no acute infectious or inflammatory findings in the abdomen or pelvis. 3. Ground glass consolidation is seen throughout the left lung. Currently clinically for evidence of an infectious/inflammatory pneumonitis. 4. Intraluminal thrombus is identified within the inferior vena cava. 5. There is a large right pleural effusion with near-complete atelectasis of the right middle and right lower lobes. This has increased from 09/07/2016. 6. There is a trace left pleural effusion. 7. Findings of extensive/widespread metastatic disease throughout the chest, abdomen, and pelvis have not significantly changed from the 09/07/2016 PET assessment. 8. There are postoperative changes from partial colon resection with transverse colostomy. No bowel obstruction is seen. 9. The left kidney is markedly atrophic and there is left hydroureteronephrosis to the level of left iliac chain adenopathy. This is similar to previous. 10. There is a new low-attenuation lesion in the upper pole the right kidney, likely representing a renal metastasis. 11. Trace abdominopelvic ascites. 12. See above for detailed findings. Electronically signed by: Jose A Garcia M.D. 09/28/2016 12:19 PM Dictated Date/Time: 09/28/2016 11:55 AM
[2016-09-28] MEDS ORDERED: SODIUM CHLORIDE 0.9% IV STA (12:35)
[2016-09-28] MEDS ORDERED: LORAZEPAM 2 MG/ML 1 ML VIAL IV STA (12:44)
[2016-09-28 13:00] LABS: URINE APPEARANCE CLOUDY (CLEAR); URINE BILIRUBIN NEG (NEG); URINE COLOR YELLOW; URINE EPITHELIAL CELL AUTO >30 /lpf (0-5); URINE NITRITE NEG (NEG); URINE SPECIFIC GRAVITY 1.043 (1.000-1.030); UROBILINOGEN NEG (NEG); ZZURINE CULT IF INDIC CATH NO
[2016-09-28 13:04] LABS: MANUAL MICROSCOPIC REQUIRED? NO; REVIEW REQ? YES
[2016-09-28] MEDS ORDERED: ACETAMINOPHEN 325 MG TAB PO PRN (13:15)
[2016-09-28] MEDS ORDERED: LORAZEPAM 0.5 MG TAB PO PRN (13:15)
[2016-09-28] MEDS ORDERED: ENOXAPARIN 40 MG/0.4 ML SYR SQ SCH (13:15)
[2016-09-28] MEDS ORDERED: NON-FORMULARY MEDICATION (Diphenhy/Alum/Mag/Sucralfa (Magic Swizzle - Diphenhy/Alum/Mag/Su PO SCH (13:30)
--- NOTE | 2016-09-28 13:40 | History and Physical ---
History & Physical Date & Time of Service: September 28, 2016 at 13:25 Chief Complaint: Weakness/Sob/Illness Primary Care Physician: Akhil Bradley M.D. History of Present Illness Source: patient, family, caregiver 71 y/o F who was brought the ED by her sister for worsening weakness and SOB. Pt is unable to provide details, information was gathered from sister who lives with pt and is her caregiver. Sister states that pt started to become more weak on Wednesday and that it has gradually gotten worse. Pt could not participate in morning care at all today. Sister also noted worsening SOB during this time. [facility] and they recommended ED eval. Sister states that pt is actively undergoing chemo, her last tx was 2 weeks ago. She follows with Dr. Donald for this and was to see him on . Until yesterday, she had been taking good PO and no issues with n/v/d. Pt has ongoing chest and abd pain with her cancer and while pt did not say it was worse these last few days, sister thinks she was taking more lortab. She was also recently started on a fentanyl patch. Pt has no hx of home O2 use. She has a port in place. Overall, sister feels pt is much improved s/p BIPAP from a respiratory standpoint. She is more groggy now, which sister states is from ativan. Pt was given dilaudid in the ED. Pt does have a skin tear on her L anterior lower leg. Sister says that pt fell and scraped her leg on the carpet about a month ago and it has not healed during that time. She has had a small amount of L ankle swelling as well recently. ROS as noted above, otherwise neg per sister. Past Medical/Surgical History Sigmoid adenocarcinoma Ovarian cancer Family History Family history was reviewed; no changes noted. Social History Smoking Status: Former Smoker (quit 1 year ago) Alcohol Use: none Drug Use: none Marital Status: single Occupational Status: unemployed Immunizations History of Influenza Vaccine: Unknown History of Tetanus Vaccine?: unknown History of Hepatitis B Vaccine: No Allergies Coded Allergies: No Known Allergies (Unverified , 03/05/15) Home Medications Scheduled Dexamethasone (Decadron), 8 MG PO DAILY Diphenhy/Alum/Mag/Sucralfa (Magic Swizzle - Diphenhy/Alum/Mag/Sucralfa), 2 TSP PO Q4H Fentanyl (Fentanyl), 25 MCG TOP [id number] Scheduled PRN Hydrocodone-Acetaminophen (Hydrocodone/Acetami 7.5/325MG 15ML), 7.5 ML PO Q6H PRN for Pain Physical Exam Vital Signs Date Time Temp Pulse Resp B/P Pulse Ox O2 Delivery O2 Flow Rate FiO2 09/28/16 11:57 112 22 117/79 97 BiPAP 09/28/16 11:22 93 60 09/28/16 11:22 123 30 93 BiPAP/CPAP 60 09/28/16 11:22 116 22 127/84 93 BiPAP 09/28/16 10:33 130 34 93 BiPAP 50 09/28/16 10:33 130 93 50 09/28/16 10:27 92 Non-Rebreather 09/28/16 10:20 37.4 129 26 114/80 88 Nasal Cannula 5.0 Non-Rebreather 09/28/16 10:20 88 Nasal Cannula 5.0 09/28/16 10:05 126 General Appearance: no apparent distress, + thin Head: normocephalic, atraumatic Respiratory/Chest: + respiratory distress (minimal and improved per sister), + crackles, + pertinent finding (no wheezing) Cardiovascular: no edema, normal peripheral pulses, + tachycardia Abdomen/GI: non tender, soft Extremities/Musculoskelatal: no calf tenderness, no pedal edema, + pertinent finding (skin tear on L LE that is bandaged) Neurologic/Psych: + pertinent finding (Pt is unable to answer questions and does not stay awake for most of exam, does reach for BIPAP and was able to move forward for lung exam) Skin: normal color, warm/dry Diagnostics Laboratory Results Results Past 24 Hours Test 09/28/16 10:40 09/28/16 11:00 09/28/16 11:18 09/28/16 11:25 Range/Units White Blood Count 26.36 4.8-10.8 K/uL Red Blood Count 6.17 4.2-5.4 M/uL Hemoglobin 15.7 12.0-16.0 g/dL Hematocrit 46.8 37-47 % Mean Corpuscular Volume 75.9 80-100 fL Mean Corpuscular Hemoglobin 25.4 25-34 pg Mean Corpuscular Hemoglobin Concent 33.5 32-36 g/dl Platelet Count 161 130-400 K/uL Neutrophils (%) (Auto) 95.9 % Lymphocytes (%) (Auto) 1.1 % Monocytes (%) (Auto) 2.0 % Eosinophils (%) (Auto) 0.0 % Basophils (%) (Auto) 0.1 % Neutrophils # (Auto) 25.28 1.4-6.5 K/uL Lymphocytes # (Auto) 0.30 1.2-3.4 K/uL Monocytes # (Auto) 0.52 0.11-0.59 K/uL Eosinophils # (Auto) 0.00 0-0.5 K/uL Basophils # (Auto) 0.03 0-0.2 K/uL RDW Standard Deviation 53.6 36.4-46.3 fL RDW Coefficient of Variation 19.7 11.5-14.5 % Immature Granulocyte % (Auto) 0.9 % Immature Granulocyte # (Auto) 0.23 0.00-0.02 K/uL Echinocytes 1+ Sodium Level 137 136-145 mmol/L Potassium Level 4.4 3.5-5.1 mmol/L Chloride Level 102 98-107 mmol/L Carbon Dioxide Level 23 21-32 mmol/L Anion Gap 12.0 20.0 16-25 mmol/L Blood Urea Nitrogen 30 7-18 mg/dl Creatinine 1.10 0.60-1.20 mg/dl Est Creatinine Clear Calc Drug Dose 32.8 ml/min Estimated GFR () 59.3 Estimated GFR (Non- 51.2 BUN/Creatinine Ratio 27.0 10-20 Random Glucose 142 70-99 mg/dl Calcium Level 9.9 8.5-10.1 mg/dl Total Bilirubin 0.6 0.2-1 mg/dl Aspartate Amino Transf (AST/SGOT) 32 15-37 U/L Alanine Aminotransferase (ALT/SGPT) 41 12-78 U/L Alkaline Phosphatase 271 45-117 U/L Total Creatine Kinase 78 26-192 U/L Creatine Kinase MB 7.9 0.5-3.6 ng/ml Creatine Kinase MB Ratio 10.1 0-3.0 Troponin I 0.326 0-0.045 ng/ml Total Protein 6.1 6.4-8.2 gm/dl Albumin 2.1 3.4-5.0 gm/dl Globulin 4.0 2.5-4.0 gm/dl Albumin/Globulin Ratio 0.5 0.9-2 Bedside Lactic Acid Venous 4.86 0.90-1.70 mmol/L Bedside Hemoglobin 17.7 12.0-16.0 g/dl Bedside Hematocrit 52 37-47 % Bedside Sodium 134 135-144 mEq/L Bedside Potassium 4.4 3.3-5.0 mEq/L Bedside Chloride 100 101-112 mEq/L Bedside Total CO2 19 24-31 mEq/l Bedside Blood Urea Nitrogen 29 7-18 mg/dl Bedside Creatinine 1.0 0.6-1.3 mg/dl Bedside Glucose (other) 147 70-99 mg/dl Bedside Ionized Calcium (Markus) 1.25 1.12-1.32 mmol/l Prothrombin Time 13.2 9.0-12.0 SECONDS Prothromb Time International Ratio 1.2 0.9-1.1 Activated Partial Thromboplast Time 29.7 21.0-31.0 SECONDS Partial Thromboplastin Ratio 1.1 Test 09/28/16 12:30 09/28/16 13:08 Range/Units Urine Color YELLOW Urine Appearance CLOUDY CLEAR Urine pH 5.0 4.5-7.5 Urine Specific [place] 1.043 1.000-1.030 Urine Protein TRACE NEG Urine Glucose (UA) NEG NEG Urine Ketones NEG NEG Urine Occult Blood TRACE NEG Urine Nitrite NEG NEG Urine Bilirubin NEG NEG Urine Urobilinogen NEG NEG Urine Leukocyte Esterase NEG NEG Microbiology Results 09/28/16 Blood Culture, Received Pending 09/28/16 Blood Culture, Received Pending Diagnostic Radiology CTA/ CT AP: 1. There is no evidence of pulmonary embolus in the main, lobar, or segmental pulmonary arteries. 2. There are no acute infectious or inflammatory findings in the abdomen or pelvis. 3. Ground glass consolidation is seen throughout the left lung. Currently clinically for evidence of an infectious/inflammatory pneumonitis. 4. Intraluminal thrombus is identified within the inferior vena cava. 5. There is a large right pleural effusion with near-complete atelectasis of the right middle and right lower lobes. This has increased from 09/07/2016. 6. There is a trace left pleural effusion. 7. Findings of extensive/widespread metastatic disease throughout the chest, abdomen, and pelvis have not significantly changed from the 09/07/2016 PET assessment. 8. There are postoperative changes from partial colon resection with transverse colostomy. No bowel obstruction is seen. 9. The left kidney is markedly atrophic and there is left hydroureteronephrosis to the level of left iliac chain adenopathy. This is similar to previous. 10. There is a new low-attenuation lesion in the upper pole the right kidney, likely representing a renal metastasis. 11. Trace abdominopelvic ascites. 12. See above for detailed findings. Impression Assessment and Plan 71 y/o F who was admitted to the ICU on 09/28 for sepsis Sepsis: CT noted for pneumonitis mya Braga zosyn started in the ED, will continue Improved on BIPAP, however is sedated related to pain medications, wean BIPAP as able Monitor in the ICU for now given tenuous status Elevated WBC, but also in the setting of decadron use Lactic acid elevated, repeat pending Blood cx pending UA pending Trop with mild elevation, serials pending Sigmoid adeno, ovarian cancer: mets noted Ongoing chemo pt Follows with Dr. Donald if needed Holding further pain meds given above status, can be restarted if pt's mentation becomes more clear L LE skin tear: WCC pending Other: Sister states that code status has not been discussed with pt in the past. She feels pt should be full code until able to discuss further Lovenox for DVT proph NPO until mentation and respiratory status improve Level of Care Critical Care Resuscitation Status FULL RESUSCITATION VTE Prophylaxis VTE Risk Assessment Done? Y/N: Yes Risk Level: Moderate
[2016-09-28 13:41] LABS: URINE PATH CASTS >30 WBC CASTS /lpf (0)
[2016-09-28] MEDS ORDERED: VANCOMYCIN CONSULT ACTIVE SCH (15:29)
[2016-09-28] MEDS ORDERED: PIPERACILL/TAZOBAC CONSULT ACTIVE SCH (15:30)
[2016-09-28] MEDS ORDERED: LEVOFLOXACIN CONSULT ACTIVE SCH (15:45)
--- NOTE | 2016-09-28 15:51 | Critical Care Consultation ---
Critical Care Consultation Date of Consultation: September 28, 2016. Attending Physician: Oralia Casiano DO Reason for Consultation: Acute hypoxic respiratory failure History of Present Illness This pleasant 71-year-old female, with an unfortunate history of being stage IV colorectal cancer. She presents with a history of sudden onset shortness of breath for the past 3- 4 days. At this time she is accompanied by her sister provides majority of the history at the bedside as the patient is too short of breath to speak. Sister notes that shortness of breath started suddenly, and there were no precipitating factors that she was aware of. She denies any cough. There is no evidence of wheezing. Sister states that she is not aware that Mrs. Hutson had any fevers, chills or night sweats. She's been urinating normally, has not had any dysuria, urinary frequency, or hematuria. She's not had any neck stiffness, headaches, dizziness. She's had generally very poor appetite for the past several months, but continues to have normal ileostomy output urination. She has a history of metastatic colon cancer, stage for a period diagnosis was made in 2013. She is was initially treated with FOLFOX regimen. She had mild ileostomy placed in 2014 for new complete circumferential obstruction bowel. In May 2015, her regimen was changed to FOLFIRI + Avastin for 6 cycles. In November 2015, the CT revealed progression of metastatic disease, including metastases to the lung. Since that time repeated CT and PET scans that showed continuing interval progression of disease. She states that 2 weeks ago she started on Opdivo therapy, which she completed one effusion. She was due for her second infusion this coming . In the ED, she was fluid resuscitated with 1.5 L NSS. She is treated with single doses of Pipracil and tazobactam, vancomycin and Levaquin. She is profoundly dyspneic in the ED, and is on BiPAP support 12/5 with an FiO2 60% and maintaining saturations between 88-90%. She becomes hypoxic with speech. Of note she has no baseline oxygen requirements at home. CT scan of the chest was negative for pulmonary embolus him, but was remarkable for extensive pulmonary fibrosis in the left side of her lung, with near total atelectasis of the right middle and lower lobes with concurrent large right-sided pleural effusion. She's being admitted to the ICU for acute hypoxic respiratory failure. Past Medical/Surgical History Sigmoid adenocarcinoma Ovarian cancer Family History Cancer Social History Smoking Status: Former Smoker (quit 1 year ago) Alcohol Use: none Drug Use: none Marital Status: single Housing Status: lives with family Occupation Status: unemployed Allergies Coded Allergies: No Known Allergies (Unverified , 03/05/15) Home Medications Scheduled Dexamethasone (Decadron), 8 MG PO DAILY Diphenhy/Alum/Mag/Sucralfa (Magic Swizzle - Diphenhy/Alum/Mag/Sucralfa), 2 TSP PO Q4H Fentanyl (Fentanyl), 25 MCG TOP [id number] Scheduled PRN Hydrocodone-Acetaminophen (Hydrocodone/Acetami 7.5/325MG 15ML), 7.5 ML PO Q6H PRN for Pain Current Inpatient Medications Current Inpatient Medications Medications (Trade) Dose Ordered Sig/Sarahi Route Start Time Stop Time Status Last Admin Dose Admin Ioversol (Optiray 320) 125 ml UD PRN IV 09/28/16 10:30 10/02/16 10:29 Enoxaparin Sodium 40 mg 40 mg Q24H SQ 09/28/16 13:15 10/28/16 13:14 UNV Sodium Chloride (Nss 1000ml) 1,000 ml @ 100 mls/hr Q10H IV 09/28/16 13:08 10/28/16 13:07 Acetaminophen (Tylenol Tab) 650 mg Q4H PRN PO 09/28/16 13:15 10/28/16 13:14 Lorazepam (Ativan Tab) 0.5 mg Q4H PRN PO 09/28/16 13:15 10/28/16 13:14 Morphine Sulfate (MoRPHine SULFATE INJ) 2 mg Q2H PRN IV 09/28/16 13:15 10/12/16 13:14 Vancomycin HCl 1 ea 1 ea UD N/A 09/28/16 15:29 10/28/16 15:28 Levofloxacin 500 mg/Prmx 100 ml @ 100 mls/hr Q24H IV 09/28/16 13:15 10/05/16 13:14 UNV Vancomycin HCl 1000 mg/Sodium Chloride 270 ml @ 125 mls/hr Q12 IV 09/28/16 21:00 10/05/16 20:59 UNV Piperacillin Sod/ Tazobactam Sod/ Dextrose (Zosyn Iv/D5 100ml) 115 ml @ 28.75 mls/ hr Q8 IV 09/28/16 14:00 10/05/16 13:59 UNV Dexamethasone 8 mg DAILY PO 09/29/16 09:00 10/29/16 08:59 Lidocaine HCl/ Diphenhydramine HCl/Al Hydroxide/ Mg Hydroxide/ Glycerin/Barcode (VISCOUS LIDOCAINE 2% Soln/ Benadryl Syrup/ Maalox Susp/ Glycerin Anhydrous Soln) Q4 MT 09/28/16 16:00 10/28/16 15:59 Piperacillin Sod/ Tazobactam Sod (Consult) 1 ea UD N/A 09/28/16 15:30 10/28/16 15:29 Levofloxacin (Consult) 1 ea UD N/A 09/28/16 15:45 10/28/16 15:44 Review of Systems A 10 point review of systems was otherwise negative unless stated above in history of present illness Physical Exam Date Time Temp Pulse Resp B/P Pulse Ox O2 Delivery O2 Flow Rate FiO2 09/28/16 15:13 141 22 109/76 88 BiPAP 09/28/16 14:47 138 24 98/68 88 BiPAP 09/28/16 14:07 139 24 112/77 87 BiPAP 09/28/16 13:53 141 26 105/63 89 BiPAP 09/28/16 13:43 145 24 74/44 89 BiPAP 09/28/16 13:27 136 09/28/16 11:57 112 22 117/79 97 BiPAP 09/28/16 11:22 93 60 09/28/16 11:22 123 30 93 BiPAP/CPAP 60 09/28/16 11:22 116 22 127/84 93 BiPAP 09/28/16 10:33 130 34 93 BiPAP 50 09/28/16 10:33 130 93 50 09/28/16 10:27 92 Non-Rebreather 09/28/16 10:20 37.4 129 26 114/80 88 Nasal Cannula 5.0 Non-Rebreather 09/28/16 10:20 88 Nasal Cannula 5.0 09/28/16 10:05 126 General Appearance: moderate distress, cachetic Head: normocephalic, atraumatic Eyes: PERRLA, no discharge ENT: normal ear exam, normal nasal exam, normal mouth exam Neck: no tenderness, trachea midline, supple, other (sternocleidomastoid retractions) Respiratory: other (market left-sided Velcro crackles with coarse breath sounds ; diminished breath sounds on the right side) Cardiovasular: normal S1S2, no murmur, other (tachycardic) Abdomen: non tender, normal bowel sounds, no rebound, other (highly ostomy) Back: no CVA tenderness Upper Extremities: no edema Lower Extremities: no edema Neuro: alert, other (markedly dyspneic with minimal speech, difficult to understand) Laboratory Results Last 24 Hours Test 09/28/16 10:40 09/28/16 11:00 09/28/16 11:18 09/28/16 11:25 White Blood Count 26.36 K/uL Red Blood Count 6.17 M/uL Hemoglobin 15.7 g/dL Hematocrit 46.8 % Mean Corpuscular Volume 75.9 fL Mean Corpuscular Hemoglobin 25.4 pg Mean Corpuscular Hemoglobin Concent 33.5 g/dl Platelet Count 161 K/uL Neutrophils (%) (Auto) 95.9 % Lymphocytes (%) (Auto) 1.1 % Monocytes (%) (Auto) 2.0 % Eosinophils (%) (Auto) 0.0 % Basophils (%) (Auto) 0.1 % Neutrophils # (Auto) 25.28 K/uL Lymphocytes # (Auto) 0.30 K/uL Monocytes # (Auto) 0.52 K/uL Eosinophils # (Auto) 0.00 K/uL Basophils # (Auto) 0.03 K/uL RDW Standard Deviation 53.6 fL RDW Coefficient of Variation 19.7 % Immature Granulocyte % (Auto) 0.9 % Immature Granulocyte # (Auto) 0.23 K/uL Echinocytes 1+ Sodium Level 137 mmol/L Potassium Level 4.4 mmol/L Chloride Level 102 mmol/L Carbon Dioxide Level 23 mmol/L Anion Gap 12.0 mmol/L 20.0 mmol/L Blood Urea Nitrogen 30 mg/dl Creatinine 1.10 mg/dl Est Creatinine Clear Calc Drug Dose 32.8 ml/min Estimated GFR () 59.3 Estimated GFR (Non- 51.2 BUN/Creatinine Ratio 27.0 Random Glucose 142 mg/dl Calcium Level 9.9 mg/dl Total Bilirubin 0.6 mg/dl Aspartate Amino Transf (AST/SGOT) 32 U/L Alanine Aminotransferase (ALT/SGPT) 41 U/L Alkaline Phosphatase 271 U/L Total Creatine Kinase 78 U/L Creatine Kinase MB 7.9 ng/ml Creatine Kinase MB Ratio 10.1 Troponin I 0.326 ng/ml Total Protein 6.1 gm/dl Albumin 2.1 gm/dl Globulin 4.0 gm/dl Albumin/Globulin Ratio 0.5 Bedside Lactic Acid Venous 4.86 mmol/L Bedside Hemoglobin 17.7 g/dl Bedside Hematocrit 52 % Bedside Sodium 134 mEq/L Bedside Potassium 4.4 mEq/L Bedside Chloride 100 mEq/L Bedside Total CO2 19 mEq/l Bedside Blood Urea Nitrogen 29 mg/dl Bedside Creatinine 1.0 mg/dl Bedside Glucose (other) 147 mg/dl Bedside Ionized Calcium (Markus) 1.25 mmol/l Prothrombin Time 13.2 SECONDS Prothromb Time International Ratio 1.2 Activated Partial Thromboplast Time 29.7 SECONDS Partial Thromboplastin Ratio 1.1 Test 09/28/16 12:30 09/28/16 13:08 09/28/16 13:55 Urine Color YELLOW Urine Appearance CLOUDY Urine pH 5.0 Urine Specific [place] 1.043 Urine Protein TRACE Urine Glucose (UA) NEG Urine Ketones NEG Urine Occult Blood TRACE Urine Nitrite NEG Urine Bilirubin NEG Urine Urobilinogen NEG Urine Leukocyte Esterase NEG Urine WBC (Auto) >30 /hpf Urine RBC (Auto) 0-4 /hpf Urine Hyaline Casts (Auto) >30 /lpf Urine Epithelial Cells (Auto) >30 /lpf Urine Bacteria (Auto) NEG Urine Renal Epithelial Cells 5-10 /lpf Urine Pathogenic Casts >30 WBC CASTS /lpf Diagnostic Results CT ANGIOGRAM OF THE CHEST; CT SCAN OF THE ABDOMEN AND PELVIS WITH IV CONTRAST CLINICAL HISTORY: Generalized abdominal pain. Dyspnea. History of widespread metastatic colorectal carcinoma. COMPARISON STUDY: CT scan of the chest, abdomen, and pelvis dated 06/02/2016. Chest CT dated 03/20/2014. Abdominal CT dated 03/15/2014. PET/CT dated 09/07/2016. TECHNIQUE: Following the IV administration of 94 of Optiray 320, CT angiogram of the chest is performed from the upper abdomen to the thoracic inlet utilizing the pulmonary embolus protocol. Images reviewed in the axial, sagittal, coronal planes. 3-D MIPS images are created and assessed. CT scan of the abdomen and pelvis was then performed from the lung bases to the proximal femora. Images are reviewed in the axial, sagittal, and coronal planes. IV contrast was administered without complication. Automated dose control exposure was utilized. Examination is degraded by motion artifact, as well as by streak artifact from the arms which could not be elevated above the chest or abdomen. CT DOSE: 438.43 mGy.cm FINDINGS: CHEST: Thyroid: Atrophic. Thoracic aorta: There is atherosclerotic calcification of the thoracic aorta, which is normal in caliber and demonstrates standard 3-vessel arch anatomy. No dissection is seen. A right internal jugular central venous infusion port is in place. Pulmonary vasculature: The pulmonary trunk is normal in caliber. There are no filling defects identified in the main, lobar, or segmental pulmonary vessels to indicate pulmonary embolus. Heart: The heart is normal in size and configuration, and without pericardial effusion. There are scattered coronary artery calcifications. Lungs and pleural spaces: There is a large right pleural effusion with near-complete atelectasis of the right middle and lower lobes. The right upper lobe remains aerated. This has increased in size from 09/07/2016. There is a small pleural effusion on the left, new from previous. Diffuse/widespread pulmonary metastatic disease has not significant changed from 09/07/2016. There is a lesion at the left lung base measures 2.8 cm as seen on image #71. Groundglass consolidation is seen throughout the left lung. The trachea and central airways are clear. Mediastinum: Numerous mildly enlarged mediastinal lymph nodes are similar to previous. Kellee: Enlarged hilar lymph nodes are similar to previous and measure up to 11 mm short axis. Axillae: There is no axillary lymphadenopathy. Bony thorax: The skeletal structures are osteopenic. No lytic or blastic lesions are clearly identified. Note that skeletal metastases were visualized by PET. ABDOMEN AND PELVIS: Liver: The contrast-enhanced liver is normal in size, contour, and attenuation. There is no intrahepatic or ductal dilatation. The hepatic veins and portal veins are patent. Multifocal hepatic metastatic disease has not significantly changed from the 09/07/2016 pad examination. The largest lesion is seen in the right lobe on image #147 and measures 2.8 cm. Lesions are present within all hepatic segments. Gallbladder: Unremarkable. Spleen: Normal in size and attenuation. Pancreas: Atrophic and grossly unremarkable. Adrenal glands: There is a 7 mm low-attenuation left adrenal nodule. The right adrenal gland is unremarkable. Kidneys: There is markedly asymmetric cortical atrophy of the left kidney as compared to the right. There is left hydroureteronephrosis to the level of the essentially necrotic retroperitoneal lymphadenopathy. There is no right-sided hydronephrosis. There is diminished enhancement of the left kidney as compared to the right. The right kidney enhances homogeneously. There is a new 1.7 cm low-attenuation lesion in the upper pole the right kidney seen on image #167. Abdominal vasculature: The abdominal aorta is normal in course and caliber noting moderate to advanced atherosclerotic calcification end irregularity. Thrombus is identified within the inferior vena cava on image #241. Bowel: There are postoperative changes from partial colectomy with transverse colostomy. A mucous fistula is present. No bowel obstruction is seen. Moderate fecal retention is noted in the right colon. The appendix is well-visualized and normal. Peritoneum: There is trace abdominopelvic ascites. No intraperitoneal free air is seen. Small foci of peritoneal metastatic disease are similar to previous. A b2b outside sales representative nodule in the left upper quadrant seen on image #160 measures 9 mm. Lymphadenopathy: Left iliac chain lymphadenopathy has not significant change from 09/07/2016. This measures 2.6 x 2.0 0 cm in axial dimension. Multifocal retroperitoneal adenopathy is again noted. Pelvic viscera: The bladder is decompressed around a Manuel catheter and not well evaluated. The uterus is surgically absent. A midline pelvic mass seen on image #338 measures approximately 7 x 5 x 5 cm. Skeletal structures: The skeletal structures are osteopenic. There is mild lumbosacral spondylosis. No lytic or blastic lesions are clearly seen. Metastatic bony disease was noted on the recent PET scan. IMPRESSION: 1. There is no evidence of pulmonary embolus in the main, lobar, or segmental pulmonary arteries. 2. There are no acute infectious or inflammatory findings in the abdomen or pelvis. 3. Ground glass consolidation is seen throughout the left lung. Currently clinically for evidence of an infectious/inflammatory pneumonitis. 4. Intraluminal thrombus is identified within the inferior vena cava. 5. There is a large right pleural effusion with near-complete atelectasis of the right middle and right lower lobes. This has increased from 09/07/2016. 6. There is a trace left pleural effusion. 7. Findings of extensive/widespread metastatic disease throughout the chest, abdomen, and pelvis have not significantly changed from the 09/07/2016 PET assessment. 8. There are postoperative changes from partial colon resection with transverse colostomy. No bowel obstruction is seen. 9. The left kidney is markedly atrophic and there is left hydroureteronephrosis to the level of left iliac chain adenopathy. This is similar to previous. 10. There is a new low-attenuation lesion in the upper pole the right kidney, likely representing a renal metastasis. 11. Trace abdominopelvic ascites. 12. See above for detailed findings. CT ANGIOGRAM OF THE CHEST; CT SCAN OF THE ABDOMEN AND PELVIS WITH IV CONTRAST CLINICAL HISTORY: Generalized abdominal pain. Dyspnea. History of widespread metastatic colorectal carcinoma. COMPARISON STUDY: CT scan of the chest, abdomen, and pelvis dated 06/02/2016. Chest CT dated 03/20/2014. Abdominal CT dated 03/15/2014. PET/CT dated 09/07/2016. TECHNIQUE: Following the IV administration of 94 of Optiray 320, CT angiogram of the chest is performed from the upper abdomen to the thoracic inlet utilizing the pulmonary embolus protocol. Images reviewed in the axial, sagittal, coronal planes. 3-D MIPS images are created and assessed. CT scan of the abdomen and pelvis was then performed from the lung bases to the proximal femora. Images are reviewed in the axial, sagittal, and coronal planes. IV contrast was administered without complication. Automated dose control exposure was utilized. Examination is degraded by motion artifact, as well as by streak artifact from the arms which could not be elevated above the chest or abdomen. CT DOSE: 438.43 mGy.cm FINDINGS: CHEST: Thyroid: Atrophic. Thoracic aorta: There is atherosclerotic calcification of the thoracic aorta, which is normal in caliber and demonstrates standard 3-vessel arch anatomy. No dissection is seen. A right internal jugular central venous infusion port is in place. Pulmonary vasculature: The pulmonary trunk is normal in caliber. There are no filling defects identified in the main, lobar, or segmental pulmonary vessels to indicate pulmonary embolus. Heart: The heart is normal in size and configuration, and without pericardial effusion. There are scattered coronary artery calcifications. Lungs and pleural spaces: There is a large right pleural effusion with near-complete atelectasis of the right middle and lower lobes. The right upper lobe remains aerated. This has increased in size from 09/07/2016. There is a small pleural effusion on the left, new from previous. Diffuse/widespread pulmonary metastatic disease has not significant changed from 09/07/2016. There is a lesion at the left lung base measures 2.8 cm as seen on image #71. Groundglass consolidation is seen throughout the left lung. The trachea and central airways are clear. Mediastinum: Numerous mildly enlarged mediastinal lymph nodes are similar to previous. Kellee: Enlarged hilar lymph nodes are similar to previous and measure up to 11 mm short axis. Axillae: There is no axillary lymphadenopathy. Bony thorax: The skeletal structures are osteopenic. No lytic or blastic lesions are clearly identified. Note that skeletal metastases were visualized by PET. ABDOMEN AND PELVIS: Liver: The contrast-enhanced liver is normal in size, contour, and attenuation. There is no intrahepatic or ductal dilatation. The hepatic veins and portal veins are patent. Multifocal hepatic metastatic disease has not significantly changed from the 09/07/2016 pad examination. The largest lesion is seen in the right lobe on image #147 and measures 2.8 cm. Lesions are present within all hepatic segments. Gallbladder: Unremarkable. Spleen: Normal in size and attenuation. Pancreas: Atrophic and grossly unremarkable. Adrenal glands: There is a 7 mm low-attenuation left adrenal nodule. The right adrenal gland is unremarkable. Kidneys: There is markedly asymmetric cortical atrophy of the left kidney as compared to the right. There is left hydroureteronephrosis to the level of the essentially necrotic retroperitoneal lymphadenopathy. There is no right-sided hydronephrosis. There is diminished enhancement of the left kidney as compared to the right. The right kidney enhances homogeneously. There is a new 1.7 cm low-attenuation lesion in the upper pole the right kidney seen on image #167. Abdominal vasculature: The abdominal aorta is normal in course and caliber noting moderate to advanced atherosclerotic calcification end irregularity. Thrombus is identified within the inferior vena cava on image #241. Bowel: There are postoperative changes from partial colectomy with transverse colostomy. A mucous fistula is present. No bowel obstruction is seen. Moderate fecal retention is noted in the right colon. The appendix is well-visualized and normal. Peritoneum: There is trace abdominopelvic ascites. No intraperitoneal free air is seen. Small foci of peritoneal metastatic disease are similar to previous. A b2b outside sales representative nodule in the left upper quadrant seen on image #160 measures 9 mm. Lymphadenopathy: Left iliac chain lymphadenopathy has not significant change from 09/07/2016. This measures 2.6 x 2.0 0 cm in axial dimension. Multifocal retroperitoneal adenopathy is again noted. Pelvic viscera: The bladder is decompressed around a Manuel catheter and not well evaluated. The uterus is surgically absent. A midline pelvic mass seen on image #338 measures approximately 7 x 5 x 5 cm. Skeletal structures: The skeletal structures are osteopenic. There is mild lumbosacral spondylosis. No lytic or blastic lesions are clearly seen. Metastatic bony disease was noted on the recent PET scan. IMPRESSION: 1. There is no evidence of pulmonary embolus in the main, lobar, or segmental pulmonary arteries. 2. There are no acute infectious or inflammatory findings in the abdomen or pelvis. 3. Ground glass consolidation is seen throughout the left lung. Currently clinically for evidence of an infectious/inflammatory pneumonitis. 4. Intraluminal thrombus is identified within the inferior vena cava. 5. There is a large right pleural effusion with near-complete atelectasis of the right middle and right lower lobes. This has increased from 09/07/2016. 6. There is a trace left pleural effusion. 7. Findings of extensive/widespread metastatic disease throughout the chest, abdomen, and pelvis have not significantly changed from the 09/07/2016 PET assessment. 8. There are postoperative changes from partial colon resection with transverse colostomy. No bowel obstruction is seen. 9. The left kidney is markedly atrophic and there is left hydroureteronephrosis to the level of left iliac chain adenopathy. This is similar to previous. 10. There is a new low-attenuation lesion in the upper pole the right kidney, likely representing a renal metastasis. 11. Trace abdominopelvic ascites. 12. See above for detailed findings. Electronically signed by: Jose A Garcia M.D. 09/28/2016 12:19 PM Dictated Date/Time: 09/28/2016 11:55 AM Poor data quality, interpretation may be adversely affected Sinus tachycardia with short NV Left atrial enlargement ST & T wave abnormality, consider lateral ischemia Abnormal ECG When compared with ECG of 18-AUG-2014 08:00, Significant changes have occurred Confirmed by Bishnu Mcclelland ([id number]) on 09/28/2016 10:58:50 AM Assessment & Plan (1) Ground glass opacity present on imaging of lung (2) Sepsis (3) Acute respiratory failure with hypoxia (4) Adenocarcinoma of sigmoid colon (5) Metastatic disease (6) Elevated troponin (7) Acute kidney failure (8) Protein-calorie malnutrition (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 NEUROLOGICAL - GCS: 14 - Sedation: None indicated at this time - Pain regimen: Morphine 2 mg q 2 hours; titrate for pain from metastatic malignancy CARDIOVASCULAR - BP: Normotensive on arrival Became hypotensive, BP 74/44 MAP: goal > 65 - Vasopressor support: None indicated; patient has indicated no invasive modalities of BP management/monitoring, including central venous access and arterial catheterization - IV Fluids: NSS at 90 ml/hr RESPIRATORY - RR: 24-266; SpO2: 88-90% on BiPAP BiPAP: 12/5, FiO2 60%; patient not tolerating currently - Change to nasal CPAP for comfort - Patient declines intubation; therefore will hold off on ABG as would not dictate escalation of care at this point in time Right Pleural Effusion - Consult Pulmonary for recs on Pleurocentesis vs PleurX catheter Left Ground Glass Opacification - Like 2/2 pulmonary metastases - Possible superimposing infectious process; antibiotics as noted below GASTROINTESTINAL - Diet: NPO due to severe dyspnea - GI Prophylaxis: Protonix 40 mg IV daily - Bowel regimen: Monitor for BM, start regimen as necessary Chronic Protein/Calorie Malnutrition - 2/2 Consumptive malignancy - Consult nutrition for recommendation RENAL//ENDOCRINE - Fluid Balance: Patient has received total of 3 L since admission Acute Kidney Injury - 2/2 Hypotension, dehydration, chronic malnutrition - Cr: 1.0 (Baseline: 0.6-0.8) - IV Fluids: NSS at 90 ml/hr HEMATOLOGY/INFECTIOUS DISEASE Sepsis - PNA vs UTI - Tmax: Afebrile WBC: 26 - Hb/Hct 15/46 - Lactate 4.8 on arrival; repeat Lactate 4.6; Pro-calcitonin level pending - CT suggests possible left-sided PNA, likely 2/2 obstructive metastases - UA suggests possibly pyelonephritis; will send for culture - Blood cultures pending x 2 - Antibiotics: Vancomycin/Zosyn/Levaquin Day 1 Metastatic Sigmoid Adenocarcinoma - Stage PERFECTO with diffuse metases - Currently receiving salvage therapy - Dr. Marinelli, her oncologist has seen her at the bedside to discuss prognosis , please note IVC Thrombosis - Acuity/Chronicity unclear; will be addressed as acute - Start Heparin Infusion - DVT Prophylaxis: Heparin Infusion LINES/IV ACCESS - Right Subclavian A port - Right Forearm Peripheral IV CODE STATUS - Do not resuscitate DISPOSITION - OT/PT: Ordered - ICU, needs nasal CPAP - Palliative care consulted for goals of care, please see their consult note for details of discussion Patient has expressed she does not want intubation, central access or arterial line monitoring; has noted that she wants to be made DNR Resident Physician Supervision Note: Dr. Park was resident physician during care of patient. I separately evaluated patient and did history and exam. I discussed the case with the resident and generally agree with the findings and plan. Critically ill due to acute hypoxic respiratory failure. Reassessed goals of care, changed from Full code to DNR. PleurX catheter placed by Pulmonary I have personally spent 40 minutes of critical care time in the direct management of this patient. This is a life/limb threatening event. This includes time spent evaluating patient, direct bedside care, chart review, placing orders, interpretation of diagnostic studies, discussion with consultants, patient, and family members, as well as other required patient management activities. This time is exclusive of all separately billable procedures, and teaching time and separate from and in addition to any other critical care service time. Documented By: Vu Lehman DO
--- NOTE | 2016-09-28 15:57 | Palliative Care Consultation ---
Consultation Date of Consultation: September 28, 2016. Requesting Physician: Dr. Park Attending Physician: Dr. Ramirez, Dr. Lehman (Examination Proctor) Reason for Consultation: Goals of care History of Present Illness This 71 year old female patient presented to the ED today with respiratory distress. She lives at home with her sister, Iliana, who is also her caregiver. Apparently the patient became so SOB that she was unable to speak, so she was brought to the ED. Patient has large right pleural effusion, was placed on bipap for profound SOB/respiratory failure. Saturations remained at 88%. 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 She has an ileostomy which was placed in 2014 for a circumferential obstruction. She has been on several chemo regimens, most recently patient started Opdivo but again has regressed disease has worsened. At this point, the disease has spread beyond control and chemo is no longer an option. Dr. Donald met with the patient and her sister in the ED and explained this to them. Palliative care also consulted to discuss goals of care, so I was present for the conversation. I stayed with the patient and her sister Iliana and had a lengthy conversation about code status and goals of care. Both state that the patient is not ready to , and they wish to continue with full treatment, but no escalation of treatment if things should worsen-- no intubation, CPR or central line placement and patient would just want to be made comfortable. But again, they'd like to continue with all other treatment at this time. Patient to be admitted to the ICU. Past Medical/Surgical History Medical History: Sigmoid cancer, metastatic Ovarian cancer Surgical History: Ileostomy Social History Smoking Status: Former Smoker (quit 1 year ago) History of Alcohol Use: Yes (RED WINE) Drug Use: none Marital Status: single Occupation Status: unemployed Review of Systems Constitutional: + weakness, + weight loss Respiratory: + dyspnea at rest, + shortness of breath Cardiac: No chest pain, No edema Abdomen: No pain Psychiatric: + anxiety Allergies Coded Allergies: No Known Allergies (Unverified , 03/05/15) Medications Current Inpatient Medications Medications (Trade) Dose Ordered Sig/Sarahi Route Start Time Stop Time Status Last Admin Dose Admin Ioversol (Optiray 320) 125 ml UD PRN IV 09/28/16 10:30 10/02/16 10:29 Enoxaparin Sodium 40 mg 40 mg Q24H SQ 09/28/16 13:15 10/28/16 13:14 UNV Sodium Chloride (Nss 1000ml) 1,000 ml @ 100 mls/hr Q10H IV 09/28/16 13:08 10/28/16 13:07 Acetaminophen (Tylenol Tab) 650 mg Q4H PRN PO 09/28/16 13:15 10/28/16 13:14 Lorazepam (Ativan Tab) 0.5 mg Q4H PRN PO 09/28/16 13:15 10/28/16 13:14 Morphine Sulfate (MoRPHine SULFATE INJ) 2 mg Q2H PRN IV 09/28/16 13:15 10/12/16 13:14 Vancomycin HCl 1 ea 1 [facility] N/A 09/28/16 15:29 10/28/16 15:28 Levofloxacin 750 mg/Prmx 150 ml @ 100 mls/hr Q48H IV 09/30/16 12:00 10/07/16 11:59 Vancomycin HCl 1000 mg/Sodium Chloride 270 ml @ 125 mls/hr Q12 IV 09/28/16 21:00 10/05/16 20:59 UNV Piperacillin Sod/ Tazobactam Sod/ Dextrose (Zosyn Iv/D5 100ml) 115 ml @ 28.75 mls/ hr Q8 IV 09/28/16 14:00 10/05/16 13:59 UNV Dexamethasone 8 mg DAILY PO 09/29/16 09:00 10/29/16 08:59 Lidocaine HCl/ Diphenhydramine HCl/Al Hydroxide/ Mg Hydroxide/ Glycerin/Barcode (VISCOUS LIDOCAINE 2% Soln/ Benadryl Syrup/ Maalox Susp/ Glycerin Anhydrous Soln) Q4 MT 09/28/16 16:00 10/28/16 15:59 Piperacillin Sod/ Tazobactam Sod (Consult) 1 ea UD N/A 09/28/16 15:30 10/28/16 15:29 Levofloxacin (Consult) 1 ea N/A 09/28/16 15:45 10/28/16 15:44 Physical Exam Date Time Temp Pulse Resp B/P Pulse Ox O2 Delivery O2 Flow Rate FiO2 09/28/16 15:13 141 22 109/76 88 BiPAP 09/28/16 14:47 138 24 98/68 88 BiPAP 09/28/16 14:07 139 24 112/77 87 BiPAP 09/28/16 13:53 141 26 105/63 89 BiPAP 09/28/16 13:43 145 24 74/44 89 BiPAP 09/28/16 13:27 136 09/28/16 11:57 112 22 117/79 97 BiPAP 09/28/16 11:22 93 60 09/28/16 11:22 123 30 93 BiPAP/CPAP 60 09/28/16 11:22 116 22 127/84 93 BiPAP 09/28/16 10:33 130 34 93 BiPAP 50 09/28/16 10:33 130 93 50 09/28/16 10:27 92 Non-Rebreather 09/28/16 10:20 37.4 129 26 114/80 88 Nasal Cannula 5.0 Non-Rebreather 09/28/16 10:20 88 Nasal Cannula 5.0 09/28/16 10:05 126 General Appearance: + moderate distress, + cachetic, + thin ENT: hearing grossly normal Neck: supple, + JVD Respiratory: + respiratory distress, + decreased breath sounds, + accessory muscle use, + pertinent finding (bipap on) Cardiovascular: + tachycardia Abdomen: normal bowel sounds, non tender, + pertinent finding (ileostomy present) Neurologic/Psychiatric: alert, normal mood/affect, oriented x 3 Laboratory Results Last 24 Hours Test 09/28/16 10:40 09/28/16 11:00 09/28/16 11:18 09/28/16 11:25 White Blood Count 26.36 K/uL Red Blood Count 6.17 M/uL Hemoglobin 15.7 g/dL Hematocrit 46.8 % Mean Corpuscular Volume 75.9 fL Mean Corpuscular Hemoglobin 25.4 pg Mean Corpuscular Hemoglobin Concent 33.5 g/dl Platelet Count 161 K/uL Neutrophils (%) (Auto) 95.9 % Lymphocytes (%) (Auto) 1.1 % Monocytes (%) (Auto) 2.0 % Eosinophils (%) (Auto) 0.0 % Basophils (%) (Auto) 0.1 % Neutrophils # (Auto) 25.28 K/uL Lymphocytes # (Auto) 0.30 K/uL Monocytes # (Auto) 0.52 K/uL Eosinophils # (Auto) 0.00 K/uL Basophils # (Auto) 0.03 K/uL RDW Standard Deviation 53.6 fL RDW Coefficient of Variation 19.7 % Immature Granulocyte % (Auto) 0.9 % Immature Granulocyte # (Auto) 0.23 K/uL Echinocytes 1+ Sodium Level 137 mmol/L Potassium Level 4.4 mmol/L Chloride Level 102 mmol/L Carbon Dioxide Level 23 mmol/L Anion Gap 12.0 mmol/L 20.0 mmol/L Blood Urea Nitrogen 30 mg/dl Creatinine 1.10 mg/dl Est Creatinine Clear Calc Drug Dose 32.8 ml/min Estimated GFR () 59.3 Estimated GFR (Non- 51.2 BUN/Creatinine Ratio 27.0 Random Glucose 142 mg/dl Calcium Level 9.9 mg/dl Total Bilirubin 0.6 mg/dl Aspartate Amino Transf (AST/SGOT) 32 U/L Alanine Aminotransferase (ALT/SGPT) 41 U/L Alkaline Phosphatase 271 U/L Total Creatine Kinase 78 U/L Creatine Kinase MB 7.9 ng/ml Creatine Kinase MB Ratio 10.1 Troponin I 0.326 ng/ml Total Protein 6.1 gm/dl Albumin 2.1 gm/dl Globulin 4.0 gm/dl Albumin/Globulin Ratio 0.5 Bedside Lactic Acid Venous 4.86 mmol/L Bedside Hemoglobin 17.7 g/dl Bedside Hematocrit 52 % Bedside Sodium 134 mEq/L Bedside Potassium 4.4 mEq/L Bedside Chloride 100 mEq/L Bedside Total CO2 19 mEq/l Bedside Blood Urea Nitrogen 29 mg/dl Bedside Creatinine 1.0 mg/dl Bedside Glucose (other) 147 mg/dl Bedside Ionized Calcium (Markus) 1.25 mmol/l Prothrombin Time 13.2 SECONDS Prothromb Time International Ratio 1.2 Activated Partial Thromboplast Time 29.7 SECONDS Partial Thromboplastin Ratio 1.1 Test 09/28/16 12:30 09/28/16 13:08 09/28/16 13:55 Urine Color YELLOW Urine Appearance CLOUDY Urine pH 5.0 Urine Specific [place] 1.043 Urine Protein TRACE Urine Glucose (UA) NEG Urine Ketones NEG Urine Occult Blood TRACE Urine Nitrite NEG Urine Bilirubin NEG Urine Urobilinogen NEG Urine Leukocyte Esterase NEG Urine WBC (Auto) >30 /hpf Urine RBC (Auto) 0-4 /hpf Urine Hyaline Casts (Auto) >30 /lpf Urine Epithelial Cells (Auto) >30 /lpf Urine Bacteria (Auto) NEG Urine Renal Epithelial Cells 5-10 /lpf Urine Pathogenic Casts >30 WBC CASTS /lpf Assessment & Plan Palliative Performance Scale: 20 % Problem list: Dyspnea/SOB/respiratory failure ?Pneumonitis Sigmoid adenocarcinoma with widespread metastatic disease Malnutrition/low BMI Weight loss Goals of care (Z51.5) Palliative care plan: discussed with patient, patient's sister Iliana Hutson, Dr. Lehman, Dr. Park. Dr. Donald also in to see patient. -Level 5 DNR/DNI per patient's wishes after a length discussion between myself, the patient and her sister Iliana. -If/when decompensation/decline occurs: no escalation of care including compressions, central line, or intubation and allow natural . Patient wishes to be made comfortable if/when she gets to that point. These items wee specifically discussed with the patient, her sister was present as well. -Continue bipap or high-flow nasal cannula and other medical treatments for now. ICU team will be taking over care. -Has morphine 2mg IV prn ordered for pain, would encourage use for air hunger as well. -Will still be admitted and monitored in ICU. Thank you kindly for this consult. I will follow.
[2016-09-28] MEDS: LIDOCAINE HCL 2% VISCOUS SOLN 60 ML, DiphenhydrAMINE HCL SYRUP 150 MG, ALUMINUM/MAGNESI... MT SCH ×8 (16:00→19:40)
--- NOTE | 2016-09-28 16:13 | Pharmacy Progress Note ---
Pharmacy Abx Initial Consult Date of Service September 28, 2016. Pharmacy Dosing Scope Date of Consult: 09/28/16 Consultation requested by: Dr. Yunier Casiano Pharmacy is consulted to initiate IV VANCOMYCIN, ZOSYN, and LEVOFLOXACIN therapy , order appropriate labs and adjust drug dose/frequency. Subjective The patient is a 71 year old female admitted on September 28, 2016 at 13:22 with 3-4 days h/o increased weakness and SOB. Patient presents to ED w/ s/s sepsis, likely from pulmonary source. Objective Height (Feet): 5 Height (Inches): 2.00 Weight (Kilograms): 43.000 Vital Signs (Past 12Hrs) Vital Signs Past 12 Hours Date Time Temp Pulse Resp B/P Pulse Ox O2 Delivery O2 Flow Rate FiO2 09/28/16 15:13 141 22 109/76 88 BiPAP 09/28/16 14:47 138 24 98/68 88 BiPAP 09/28/16 14:07 139 24 112/77 87 BiPAP 09/28/16 13:53 141 26 105/63 89 BiPAP 09/28/16 13:43 145 24 74/44 89 BiPAP 09/28/16 13:27 136 09/28/16 11:57 112 22 117/79 97 BiPAP 09/28/16 11:22 93 60 09/28/16 11:22 123 30 93 BiPAP/CPAP 60 09/28/16 11:22 116 22 127/84 93 BiPAP 09/28/16 10:33 130 34 93 BiPAP 50 09/28/16 10:33 130 93 50 09/28/16 10:27 92 Non-Rebreather 09/28/16 10:20 37.4 129 26 114/80 88 Nasal Cannula 5.0 Non-Rebreather 09/28/16 10:20 88 Nasal Cannula 5.0 09/28/16 10:05 126 Lab Results (24Hrs) Test 09/28/16 10:40 09/28/16 11:00 09/28/16 11:18 09/28/16 11:25 White Blood Count 26.36 K/uL (4.8-10.8) Red Blood Count 6.17 M/uL (4.2-5.4) Hemoglobin 15.7 g/dL (12.0-16.0) Hematocrit 46.8 % (37-47) Mean Corpuscular Volume 75.9 fL (80-100) Mean Corpuscular Hemoglobin 25.4 pg (25-34) Mean Corpuscular Hemoglobin Concent 33.5 g/dl (32-36) Platelet Count 161 K/uL (130-400) Neutrophils (%) (Auto) 95.9 % Lymphocytes (%) (Auto) 1.1 % Monocytes (%) (Auto) 2.0 % Eosinophils (%) (Auto) 0.0 % Basophils (%) (Auto) 0.1 % Neutrophils # (Auto) 25.28 K/uL (1.4-6.5) Lymphocytes # (Auto) 0.30 K/uL (1.2-3.4) Monocytes # (Auto) 0.52 K/uL (0.11-0.59) Eosinophils # (Auto) 0.00 K/uL (0-0.5) Basophils # (Auto) 0.03 K/uL (0-0.2) RDW Standard Deviation 53.6 fL (36.4-46.3) RDW Coefficient of Variation 19.7 % (11.5-14.5) Immature Granulocyte % (Auto) 0.9 % Immature Granulocyte # (Auto) 0.23 K/uL (0.00-0.02) Echinocytes 1+ Sodium Level 137 mmol/L (136-145) Potassium Level 4.4 mmol/L (3.5-5.1) Chloride Level 102 mmol/L (98-107) Carbon Dioxide Level 23 mmol/L (21-32) Blood Urea Nitrogen 30 mg/dl (7-18) Creatinine 1.10 mg/dl (0.60-1.20) Est Creatinine Clear Calc Drug Dose 32.8 ml/min Estimated GFR () 59.3 Estimated GFR (Non- 51.2 BUN/Creatinine Ratio 27.0 (10-20) Random Glucose 142 mg/dl (70-99) Calcium Level 9.9 mg/dl (8.5-10.1) Total Bilirubin 0.6 mg/dl (0.2-1) Aspartate Amino Transf (AST/SGOT) 32 U/L (15-37) Alanine Aminotransferase (ALT/SGPT) 41 U/L (12-78) Alkaline Phosphatase 271 U/L (45-117) Total Creatine Kinase 78 U/L (26-192) Creatine Kinase MB 7.9 ng/ml (0.5-3.6) Creatine Kinase MB Ratio 10.1 (0-3.0) Troponin I 0.326 ng/ml (0-0.045) Total Protein 6.1 gm/dl (6.4-8.2) Albumin 2.1 gm/dl (3.4-5.0) Globulin 4.0 gm/dl (2.5-4.0) Albumin/Globulin Ratio 0.5 (0.9-2) Bedside Lactic Acid Venous 4.86 mmol/L (0.90-1.70) Bedside Hemoglobin 17.7 g/dl (12.0-16.0) Bedside Hematocrit 52 % (37-47) Bedside Sodium 134 mEq/L (135-144) Bedside Potassium 4.4 mEq/L (3.3-5.0) Bedside Chloride 100 mEq/L (101-112) Bedside Total CO2 19 mEq/l (24-31) Anion Gap 20.0 mmol/L (16-25) Bedside Blood Urea Nitrogen 29 mg/dl (7-18) Bedside Creatinine 1.0 mg/dl (0.6-1.3) Bedside Glucose (other) 147 mg/dl (70-99) Bedside Ionized Calcium (Markus) 1.25 mmol/l (1.12-1.32) Prothrombin Time 13.2 SECONDS (9.0-12.0) Prothromb Time International Ratio 1.2 (0.9-1.1) Activated Partial Thromboplast Time 29.7 SECONDS (21.0-31.0) Partial Thromboplastin Ratio 1.1 Test 09/28/16 12:30 09/28/16 13:08 09/28/16 13:55 Urine Color YELLOW Urine Appearance CLOUDY (CLEAR) Urine pH 5.0 (4.5-7.5) Urine Specific [place] 1.043 (1.000-1.030) Urine Protein TRACE (NEG) Urine Glucose (UA) NEG (NEG) Urine Ketones NEG (NEG) Urine Occult Blood TRACE (NEG) Urine Nitrite NEG (NEG) Urine Bilirubin NEG (NEG) Urine Urobilinogen NEG (NEG) Urine Leukocyte Esterase NEG (NEG) Urine WBC (Auto) >30 /hpf (0-5) Urine RBC (Auto) 0-4 /hpf (0-4) Urine Hyaline Casts (Auto) >30 /lpf (0-5) Urine Epithelial Cells (Auto) >30 /lpf (0-5) Urine Bacteria (Auto) NEG (NEG) Urine Renal Epithelial Cells 5-10 /lpf (0-5) Urine Pathogenic Casts >30 WBC CASTS /lpf (0) Micro Results Date/Time Source Procedure Growth Status 09/28/16 11:25 Blood Blood Culture Pending Received 09/28/16 10:40 Blood Blood Culture Pending Received 09/28/16 00:00 Nasal MRSA DNA Surveillance Screen Pending Received Risk Factors for Resistance * Immunocompromised (chronic steroid therapy, chemotherapy) Assessment & Plan Assessment * 71 year old female presenting to the ER w/ 3-4 days h/o increasing weakness and SOB. Patient dx w/ sepsis, pulmonary source likely. Broad spectrum ABX therapy initiated in ED (Vanco + Zosyn + Levofloxacin) and the plan is to continue the same regimen in the ICU. * WBC 26.4, Neut # 25.3, Lactate 4.86, procalcitonin ordered and pending, SCr elevated above baseline (baseline ~0.65-0.75, currently 1.1) * HR > 90 (currently 130's-140's) RR 22-26, O2 Sat 88-89 on BiPAP, BP as low as 74/44 but now up to 109/76 - did receive 30cc/kg IVF's * CT read as L lung "ground glass" appearance consistent w/ infxn vs inflammatory pneumonitis, also R pleural effusion w/ near complete atelectasis RML and RLL, as well as IVC thrombus * Patient has h/o sigmoid adenocarcinoma and ovarian CA and METs - last chemo given ~ 2 wks ago * MRSA nares ordered Plan Vancomycin IV * Loading dose: 1000 mg (~23 mg/kg) was given in the ER * Maintenance dose: 700 mg IV (16 mg/kg) every 24 hours * Goal trough level for sepsis/pnx : 15 to 20 mcg/mL * Trough level ordered for 09/30/16 --> will not be at steady-state, however would like to check early, given likelihood of improving renal fxn or underestimating clearance in a malnourished patient as SCr not as reliable as a indicator of renal fxn. * Will need to follow U.O., VS, and SCr/BUN closely given JEREMIE and possible changing renal fxn Piperacillin/tazobactam * 4.5 g bolus administered over 30 minutes, then 3.375 g IV extended infusion every 8 hours for CrCl greater than 20 mL/min OR every 12 hours for CrCl 20 mL/ min or less and dialysis. Levofloxacin * eCrCl ~33cc/min; dose indicated is 750mg IV Q 48 hrs * QTc 425 Pharmacy will continue to follow and will adjust dose/frequency as necessary. Thank you.
--- NOTE | 2016-09-28 16:22 | Oncology Consultation ---
Oncology/Heme Consultation Date of Consultation: September 28, 2016. Attending Physician: Oralia Casiano DO Reason for Consultation: Metastatic colon carcinoma History of Present Illness 71-year-old female Presented in February 2014 with lower abdominal discomfort. With that visit and complaint a CT scan showed in the pelvis slightly to the right of midline a heterogenous partially cystic appearing partially enhancing mass adjacent to the uterus. Colonoscopy in March 2014 showed a sigmoid colon mass that was circumferential with inability to pass the scope beyond the lesion. CT scan of the chest at that time showed 2 right upper lobe pulmonary nodules suspicious for metastatic disease. This tumor is BRAF positive. She has been treated with chemotherapy and in fact has received several sorts of regimens. Her disease has been progressive. Her performance status has been decreasing. She presents now with worsening shortness of breath. She is here with her sister Iliana. She denies any fever. She has had pain in a number of areas that appears pain-free now in the emergency room. While in the emergency room her O2 saturations were quite low. She is now on BIPAP. Past Medical/Surgical History Medical Problems: (1) Pneumonia Status: Acute (2) Sepsis Status: Acute Family History Cancer Social History Smoking Status: Former Smoker (quit 1 year ago) Alcohol Use: none Drug Use: none Marital Status: single Housing Status: lives with family Occupation Status: unemployed Allergies Coded Allergies: No Known Allergies (Unverified , 03/05/15) Home Medications Scheduled Dexamethasone (Decadron), 8 MG PO DAILY Diphenhy/Alum/Mag/Sucralfa (Magic Swizzle - Diphenhy/Alum/Mag/Sucralfa), 2 TSP PO Q4H Fentanyl (Fentanyl), 25 MCG TOP CQ72HR Scheduled PRN Hydrocodone-Acetaminophen (Hydrocodone/Acetami 7.5/325MG 15ML), 7.5 ML PO Q6H PRN for Pain Current Inpatient Medications Current Inpatient Medications Medications (Trade) Dose Ordered Sig/Sarahi Route Start Time Stop Time Status Last Admin Dose Admin Ioversol (Optiray 320) 125 ml UD PRN IV 09/28/16 10:30 10/02/16 10:29 Enoxaparin Sodium 40 mg 40 mg Q24H SQ 09/28/16 13:15 10/28/16 13:14 UNV Sodium Chloride (Nss 1000ml) 1,000 ml @ 100 mls/hr Q10H IV 09/28/16 13:08 10/28/16 13:07 Acetaminophen (Tylenol Tab) 650 mg Q4H PRN PO 09/28/16 13:15 10/28/16 13:14 Lorazepam (Ativan Tab) 0.5 mg Q4H PRN PO 09/28/16 13:15 10/28/16 13:14 Morphine Sulfate (MoRPHine SULFATE INJ) 2 mg Q2H PRN IV 09/28/16 13:15 10/12/16 13:14 Vancomycin HCl 1 ea 1 ea UD N/A 09/28/16 15:29 10/28/16 15:28 Levofloxacin 750 mg/Prmx 150 ml @ 100 mls/hr Q48H IV 09/30/16 12:00 10/07/16 11:59 Vancomycin HCl 700 mg/Sodium Chloride 264 ml @ 125 mls/hr Q24H IV 09/29/16 10:00 10/06/16 09:59 Piperacillin Sod/ Tazobactam Sod/ Dextrose (Zosyn Iv/D5 100ml) 115 ml @ 28.75 mls/ hr Q8H IV 09/28/16 18:00 10/05/16 17:59 UNV Dexamethasone 8 mg DAILY PO 09/29/16 09:00 10/29/16 08:59 Lidocaine HCl/ Diphenhydramine HCl/Al Hydroxide/ Mg Hydroxide/ Glycerin/Barcode (VISCOUS LIDOCAINE 2% Soln/ Benadryl Syrup/ Maalox Susp/ Glycerin Anhydrous Soln) Q4 MT 09/28/16 16:00 10/28/16 15:59 Piperacillin Sod/ Tazobactam Sod (Consult) 1 ea UD N/A 09/28/16 15:30 10/28/16 15:29 Levofloxacin (Consult) 1 ea UD N/A 09/28/16 15:45 10/28/16 15:44 Review of Systems Difficult to obtain an accurate review of system. The patient is communicative but has great difficulty in expressing herself. She becomes winded very easily. Physical Exam Date Time Temp Pulse Resp B/P Pulse Ox O2 Delivery O2 Flow Rate FiO2 09/28/16 15:13 141 22 109/76 88 BiPAP 09/28/16 14:47 138 24 98/68 88 BiPAP 09/28/16 14:07 139 24 112/77 87 BiPAP 09/28/16 13:53 141 26 105/63 89 BiPAP 09/28/16 13:43 145 24 74/44 89 BiPAP 09/28/16 13:27 136 09/28/16 11:57 112 22 117/79 97 BiPAP 09/28/16 11:22 93 60 09/28/16 11:22 123 30 93 BiPAP/CPAP 60 09/28/16 11:22 116 22 127/84 93 BiPAP 09/28/16 10:33 130 34 93 BiPAP 50 09/28/16 10:33 130 93 50 09/28/16 10:27 92 Non-Rebreather 09/28/16 10:20 37.4 129 26 114/80 88 Nasal Cannula 5.0 Non-Rebreather 09/28/16 10:20 88 Nasal Cannula 5.0 09/28/16 10:05 126 Constitutional: Afebrile pulse 140 blood pressure 110/70 Eyes: Eyes are PAT EOMI without conjuctival erythema or icterus. ENT: External examination was negative for masses. Neck: Negative for masses or palpable thyromegaly Respiratory: Lung sounds were generally clear but decreased bilaterally Cardiovascular: Heart was tachycardic without significant murmur, gallops aoe rubs Gastrointestinal: No palpable hepatic or splenomegaly. The abdomen was soft with normal bowel sounds. Lymphatic system: there was no palpable peripheral lymphadenopathy Musculoskeletal System: The musculoskeletal system seemed concordant with age. Skin: The skin was negative for jaundice. Neurologic exam: The exam was negative for any focal findings. Deep tendon reflexes were equal and symmetrical. Psychiatric exam: Was essentially negative with normal mood and effect. Breast exam: Not done Extremities: Negative for significant edema Laboratory Results Last 24 Hours Test 09/28/16 10:40 09/28/16 11:00 09/28/16 11:18 09/28/16 11:25 White Blood Count 26.36 K/uL Red Blood Count 6.17 M/uL Hemoglobin 15.7 g/dL Hematocrit 46.8 % Mean Corpuscular Volume 75.9 fL Mean Corpuscular Hemoglobin 25.4 pg Mean Corpuscular Hemoglobin Concent 33.5 g/dl Platelet Count 161 K/uL Neutrophils (%) (Auto) 95.9 % Lymphocytes (%) (Auto) 1.1 % Monocytes (%) (Auto) 2.0 % Eosinophils (%) (Auto) 0.0 % Basophils (%) (Auto) 0.1 % Neutrophils # (Auto) 25.28 K/uL Lymphocytes # (Auto) 0.30 K/uL Monocytes # (Auto) 0.52 K/uL Eosinophils # (Auto) 0.00 K/uL Basophils # (Auto) 0.03 K/uL RDW Standard Deviation 53.6 fL RDW Coefficient of Variation 19.7 % Immature Granulocyte % (Auto) 0.9 % Immature Granulocyte # (Auto) 0.23 K/uL Echinocytes 1+ Sodium Level 137 mmol/L Potassium Level 4.4 mmol/L Chloride Level 102 mmol/L Carbon Dioxide Level 23 mmol/L Anion Gap 12.0 mmol/L 20.0 mmol/L Blood Urea Nitrogen 30 mg/dl Creatinine 1.10 mg/dl Est Creatinine Clear Calc Drug Dose 32.8 ml/min Estimated GFR () 59.3 Estimated GFR (Non- 51.2 BUN/Creatinine Ratio 27.0 Random Glucose 142 mg/dl Calcium Level 9.9 mg/dl Total Bilirubin 0.6 mg/dl Aspartate Amino Transf (AST/SGOT) 32 U/L Alanine Aminotransferase (ALT/SGPT) 41 U/L Alkaline Phosphatase 271 U/L Total Creatine Kinase 78 U/L Creatine Kinase MB 7.9 ng/ml Creatine Kinase MB Ratio 10.1 Troponin I 0.326 ng/ml Total Protein 6.1 gm/dl Albumin 2.1 gm/dl Globulin 4.0 gm/dl Albumin/Globulin Ratio 0.5 Bedside Lactic Acid Venous 4.86 mmol/L Bedside Hemoglobin 17.7 g/dl Bedside Hematocrit 52 % Bedside Sodium 134 mEq/L Bedside Potassium 4.4 mEq/L Bedside Chloride 100 mEq/L Bedside Total CO2 19 mEq/l Bedside Blood Urea Nitrogen 29 mg/dl Bedside Creatinine 1.0 mg/dl Bedside Glucose (other) 147 mg/dl Bedside Ionized Calcium (Markus) 1.25 mmol/l Prothrombin Time 13.2 SECONDS Prothromb Time International Ratio 1.2 Activated Partial Thromboplast Time 29.7 SECONDS Partial Thromboplastin Ratio 1.1 Test 09/28/16 12:30 09/28/16 15:53 Urine Color YELLOW Urine Appearance CLOUDY Urine pH 5.0 Urine Specific [place] 1.043 Urine Protein TRACE Urine Glucose (UA) NEG Urine Ketones NEG Urine Occult Blood TRACE Urine Nitrite NEG Urine Bilirubin NEG Urine Urobilinogen NEG Urine Leukocyte Esterase NEG Urine WBC (Auto) >30 /hpf Urine RBC (Auto) 0-4 /hpf Urine Hyaline Casts (Auto) >30 /lpf Urine Epithelial Cells (Auto) >30 /lpf Urine Bacteria (Auto) NEG Urine Renal Epithelial Cells 5-10 /lpf Urine Pathogenic Casts >30 WBC CASTS /lpf Assessment & Plan Scans were reviewed and show significant widespread changes consistent with metastatic disease. Right pleural fluid has increased in size. Her most recent treatment included Opdivo. 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 She does look desperately ill. We have had conversations in our clinic concerning the unfortunate realities and therapeutic limitations that we have in regards to this disease. She has been told that comfort measures would be most reasonable at this time and that further systemic therapy would not be helpful. She is undecided with our conversation as to whether she wants to pursue intubation should that be necessary. She will be transferred to ICU for now. For now unless she has further thoughts on subsequent discussions it appears that she would prefer resuscitation. I understand that palliative care . Shannan Rodriguez is about to also meet with her.
[2016-09-28 16:23] LABS: BUN/CREATININE RATIO 25.2 (10-20); CALCIUM 8.7 mg/dl (8.5-10.1); MAGNESIUM 2.3 mg/dl (1.8-2.4); PHOSPHORUS 3.3 mg/dl (2.5-4.9); POTASSIUM 4.6 mmol/L (3.5-5.1)
[2016-09-28 16:33] VITALS: BP 138/110; PULSE 141; TEMP 36.3; O2SAT 87; Ht 152.4 cm; Wt 43.2 kg
[2016-09-28] MEDS ORDERED: MIDAZOLAM HCL 5 MG/ML 1 ML VIAL ONE (17:17)
[2016-09-28] MEDS ORDERED: FENTANYL CITRATE INJ 50 MCG/1 ML 2 ML VIAL ONE (17:17)
[2016-09-28] MEDS ORDERED: HEPARIN 25,000 UNIT/500ML D5W 500 ML IV PRN (18:00)
--- NOTE | 2016-09-28 18:00 | Pulmonary Consultation ---
History General Date of Service: September 28, 2016. Stated Complaint: SOB HPI The patient is a 71 year old female who presents to [facility] with complaints of SOB. The patient's primary care provider is Akhil Bradley M.D.. 71y/o female with sudden onset shortness of breath for the past 3-4 days. During the interview the patient could only answer yes or no and but her sister was at the bedside and provided a majority of the history. Sister notes that shortness of breath started suddenly, and there were no precipitating factors that she was aware of. She denies any cough. There is no evidence of wheezing. Sister states that she is not aware that Mrs. Hutson had any fevers, chills or night sweats. She's been urinating normally, has not had any dysuria , urinary frequency, or hematuria. She's not had any neck stiffness, headaches , dizziness. She's had generally very poor appetite for the past several months , but continues to have normal ileostomy output urination. She has a history of metastatic colon cancer, stage for a period diagnosis was made in 2013. She is was initially treated with FOLFOX regimen. She had mild ileostomy placed in 2014 for new complete circumferential obstruction bowel. In May 2015, her regimen was changed to FOLFIRI + Avastin for 6 cycles. In November 2015, the CT revealed progression of metastatic disease, including metastases to the lung. Since that time repeated CT and PET scans that showed continuing interval progression of disease. She states that 2 weeks ago she started on Opdivo therapy, which she completed one effusion. She was due for her second infusion this coming . In the ED, she was fluid resuscitated with 1.5 L NSS. She is treated with single doses of Pipracil and tazobactam, vancomycin and Levaquin. She is profoundly dyspneic in the ED, and is on BiPAP support 12/5 with an FiO2 60% and maintaining saturations between 88-90%. She becomes hypoxic with speech. Of note she has no baseline oxygen requirements at home. CT scan of the chest was negative for pulmonary embolus him, but was remarkable for extensive pulmonary fibrosis in the left side of her lung, with near total atelectasis of the right middle and lower lobes with concurrent large right-sided pleural effusion. She's being admitted to the ICU for acute hypoxic respiratory failure. Historian: patient, family, EMS Review of Systems Constitutional: reports: malaise, weakness, weight loss Eyes: reports: no symptoms ENT: reports: sore throat Cardiovascular: reports: chest pain Respiratory: reports: as stated in HPI Gastrointestinal: reports: constipation Genitourinary - Female: reports: no symptoms Musculoskeletal: reports: myalgias Integumentary: reports: no symptoms Neurologic: reports: dizziness Psychiatric: reports: anxiety, depression Endocrine: no symptoms Hematologic / Lymphatic: easy bleeding, easy bruising Allergic / Immunologic: no symptoms Past Medical History Past Medical History: Sigmoid adenocarcinoma Ovarian cancer Past Surgical History: Cancer Family History Cancer cancer Social History Hx Tobacco Use In Past Year?: Yes Smoking Status: Former Smoker Marital status: single Occupational Status: unemployed Immunizations History of Influenza Vaccine: Unknown History of Tetanus Vaccine?: unknown History of Hepatitis B Vaccine: No Allergies Coded Allergies: No Known Allergies (Unverified , 03/05/15) Current Medications Reported Home Medications Medications Dose Route/Sig Max Daily Dose Days Date Category Dose Instructions Hydrocodone/Acetami 7.5/325MG 15ML (Hydrocodone-Acetaminophen) 1 Reina Reina 7.5 Ml PO Q6H PRN 09/28/16 Reported Decadron (Dexamethasone) 4 Mg Tab 8 Mg PO DAILY 09/28/16 Reported Fentanyl 25 Mcg Tdsy 25 Mcg TOP CQ72HR 09/28/16 Reported Magic Swizzle - Diphenhy/Alum/Mag/Sucralfa (Miscellaneous Medication) Susp 2 Tsp PO Q4H 08/02/14 Reported 30ML DIPHENHYDRAMINE SLN 12.5/5ML 60ML MAALOX 4GM CARAFATE SWISH AND SPIT Physical Physical Exam Vital Signs: Date Time Temp Pulse Resp B/P Pulse Ox O2 Delivery O2 Flow Rate FiO2 09/28/16 16:33 36.3 141 32 138/110 87 40.0 100 09/28/16 15:13 141 22 109/76 88 BiPAP 09/28/16 14:47 138 24 98/68 88 BiPAP 09/28/16 14:07 139 24 112/77 87 BiPAP 09/28/16 13:53 141 26 105/63 89 BiPAP 09/28/16 13:43 145 24 74/44 89 BiPAP 09/28/16 13:27 136 09/28/16 11:57 112 22 117/79 97 BiPAP 09/28/16 11:22 93 60 09/28/16 11:22 123 30 93 BiPAP/CPAP 60 09/28/16 11:22 116 22 127/84 93 BiPAP 09/28/16 10:33 130 34 93 BiPAP 50 09/28/16 10:33 130 93 50 09/28/16 10:27 92 Non-Rebreather 09/28/16 10:20 37.4 129 26 114/80 88 Nasal Cannula 5.0 Non-Rebreather 09/28/16 10:20 88 Nasal Cannula 5.0 09/28/16 10:05 126 General Appearance: cachetic Head: NORMOCEPHALIC, ATRAUMATIC Eyes: other (right eye corneal tear) ENT: NORMAL EAR EXAM, NORMAL NASAL EXAM, poor dentition Neck: NORMAL RANGE OF MOTION, NO TENDERNESS, TRACHEA MIDLINE, NO STRIDOR Respiratory: other (decreased BS bilateral R>>L with dullness to precution ) Cardiovasular: NORMAL S1S2, irregular rate Abdomen: NO REBOUND, NO GUARDING, other (colostomy in place) Genitourinary - Female: EXTERNAL GENITALIA NORMAL Back: NORMAL INSPECTION, NO MIDLINE TENDERNESS, NO CVA TENDERNESS, NO PARAVERTEBRAL TTP, NORMAL RANGE OF MOTION Upper Extremities: NO EDEMA, NO DEFORMITY, NORMAL ROM Lower Extremities: NO EDEMA, NO DEFORMITY, NORMAL ROM Pulses: carotid (R) (1+), carotid (L) (1+), posterior tibial (R), posterior tibial (L) (1+) Neuro: ALERT, ORIENTED x 3, NORMAL MOTOR EXAM, NORMAL SENSATION Reflexes: biceps (R) (2+), bicpes (L) (2+), achilles (R) Babinski Testing: right (equivocal), left (equivocal) Psychiatric: depressed, anxious Diagnostics Labs Results Past 24 Hours Test 09/28/16 10:40 09/28/16 11:00 09/28/16 11:18 09/28/16 11:25 Range/Units White Blood Count 26.36 4.8-10.8 K/uL Red Blood Count 6.17 4.2-5.4 M/uL Hemoglobin 15.7 12.0-16.0 g/dL Hematocrit 46.8 37-47 % Mean Corpuscular Volume 75.9 80-100 fL Mean Corpuscular Hemoglobin 25.4 25-34 pg Mean Corpuscular Hemoglobin Concent 33.5 32-36 g/dl Platelet Count 161 130-400 K/uL Neutrophils (%) (Auto) 95.9 % Lymphocytes (%) (Auto) 1.1 % Monocytes (%) (Auto) 2.0 % Eosinophils (%) (Auto) 0.0 % Basophils (%) (Auto) 0.1 % Neutrophils # (Auto) 25.28 1.4-6.5 K/uL Lymphocytes # (Auto) 0.30 1.2-3.4 K/uL Monocytes # (Auto) 0.52 0.11-0.59 K/uL Eosinophils # (Auto) 0.00 0-0.5 K/uL Basophils # (Auto) 0.03 0-0.2 K/uL RDW Standard Deviation 53.6 36.4-46.3 fL RDW Coefficient of Variation 19.7 11.5-14.5 % Immature Granulocyte % (Auto) 0.9 % Immature Granulocyte # (Auto) 0.23 0.00-0.02 K/uL Echinocytes 1+ Sodium Level 137 136-145 mmol/L Potassium Level 4.4 3.5-5.1 mmol/L Chloride Level 102 98-107 mmol/L Carbon Dioxide Level 23 21-32 mmol/L Anion Gap 12.0 20.0 16-25 mmol/L Blood Urea Nitrogen 30 7-18 mg/dl Creatinine 1.10 0.60-1.20 mg/dl Est Creatinine Clear Calc Drug Dose 32.8 ml/min Estimated GFR () 59.3 Estimated GFR (Non- 51.2 BUN/Creatinine Ratio 27.0 10-20 Random Glucose 142 70-99 mg/dl Calcium Level 9.9 8.5-10.1 mg/dl Total Bilirubin 0.6 0.2-1 mg/dl Aspartate Amino Transf (AST/SGOT) 32 15-37 U/L Alanine Aminotransferase (ALT/SGPT) 41 12-78 U/L Alkaline Phosphatase 271 45-117 U/L Total Creatine Kinase 78 26-192 U/L Creatine Kinase MB 7.9 0.5-3.6 ng/ml Creatine Kinase MB Ratio 10.1 0-3.0 Troponin I 0.326 0-0.045 ng/ml Total Protein 6.1 6.4-8.2 gm/dl Albumin 2.1 3.4-5.0 gm/dl Globulin 4.0 2.5-4.0 gm/dl Albumin/Globulin Ratio 0.5 0.9-2 Bedside Lactic Acid Venous 4.86 0.90-1.70 mmol/L Bedside Hemoglobin 17.7 12.0-16.0 g/dl Bedside Hematocrit 52 37-47 % Bedside Sodium 134 135-144 mEq/L Bedside Potassium 4.4 3.3-5.0 mEq/L Bedside Chloride 100 101-112 mEq/L Bedside Total CO2 19 24-31 mEq/l Bedside Blood Urea Nitrogen 29 7-18 mg/dl Bedside Creatinine 1.0 0.6-1.3 mg/dl Bedside Glucose (other) 147 70-99 mg/dl Bedside Ionized Calcium (Markus) 1.25 1.12-1.32 mmol/l Prothrombin Time 13.2 9.0-12.0 SECONDS Prothromb Time International Ratio 1.2 0.9-1.1 Activated Partial Thromboplast Time 29.7 21.0-31.0 SECONDS Partial Thromboplastin Ratio 1.1 Test 09/28/16 12:30 09/28/16 15:53 Range/Units Urine Color YELLOW Urine Appearance CLOUDY CLEAR Urine pH 5.0 4.5-7.5 Urine Specific [place] 1.043 1.000-1.030 Urine Protein TRACE NEG Urine Glucose (UA) NEG NEG Urine Ketones NEG NEG Urine Occult Blood TRACE NEG Urine Nitrite NEG NEG Urine Bilirubin NEG NEG Urine Urobilinogen NEG NEG Urine Leukocyte Esterase NEG NEG Urine WBC (Auto) >30 0-5 /hpf Urine RBC (Auto) 0-4 0-4 /hpf Urine Hyaline Casts (Auto) >30 0-5 /lpf Urine Epithelial Cells (Auto) >30 0-5 /lpf Urine Bacteria (Auto) NEG NEG Urine Renal Epithelial Cells 5-10 0-5 /lpf Urine Pathogenic Casts >30 WBC CASTS 0 /lpf Sodium Level 139 136-145 mmol/L Potassium Level 4.6 3.5-5.1 mmol/L Chloride Level 108 98-107 mmol/L Carbon Dioxide Level 19 21-32 mmol/L Anion Gap 12.0 3-11 mmol/L Blood Urea Nitrogen 25 7-18 mg/dl Creatinine 1.00 0.60-1.20 mg/dl Est Creatinine Clear Calc Drug Dose 36.0 ml/min Estimated GFR () 66.6 Estimated GFR (Non- 57.4 BUN/Creatinine Ratio 25.2 10-20 Random Glucose 153 70-99 mg/dl Lactic Acid Level 4.6 0.4-2.0 mmol/L Calcium Level 8.7 8.5-10.1 mg/dl Phosphorus Level 3.3 2.5-4.9 mg/dl Magnesium Level 2.3 1.8-2.4 mg/dl Procalcitonin 1.35 0-0.5 ng/ml Chemistry Specimen Hemolysis Microbiology Results 09/28/16 Blood Culture, Received Pending 09/28/16 Blood Culture, Received Pending 09/28/16 MRSA DNA Surveillance Screen - Final, Complete Specimen Negative for MRSA by DNA Probe Diagnostic Radiology CT large right sided pleural effusion EKG signs tachy with short WA Impression Assessment and Plan 71y/o female with significant widespread changes consistent with metastatic disease. Right pleural fluid has increased in size. Her most recent treatment included Opdivo. 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 1) Right Pleural Effusion: I agree with the ICU team that IPC should be placed for fluid removal and possible symptomatic improvement for her SOB.
--- NOTE | 2016-09-28 18:02 | Procedure Note ---
Procedure Note Date of Service September 28, 2016. Procedure Note Procedures: left sided indwelling pleural catheter Consent: obtained via the patient and placed into the chart Pre-Procedural Dx: Right-sided pleural effusion Post-Procedural Dx: Right-sided pleural effusion Analgesia: 10cc of 1% Liquid Lidocaine Procedure: The patient was placed in an left lateral decubitus position and thoracic US was used to select a spot for the procedure. A spot along the posterior axillary line was marked in the 7th intercostal space. The patient was then draped and prepped in a sterile fashion. A modified Seldinger technique was then used for catheter placement. Approximately 5 cm anterior a small 6 mm cut was performed and tunneling was made to the initial and catheter insertion. The indwelling pleural catheter easily slid into the left hemithorax. Flowing this approximately 1100cc of serosanguineous pleural fluid was removed. EBL: 3cc Complications: none
--- NOTE | 2016-09-28 18:03 | Procedure Note ---
Procedure Note Date of Service September 28, 2016. Procedure Note Procedures: left sided indwelling pleural catheter Consent: obtained via the patient and placed into the chart Pre-Procedural Dx: Left-sided pleural effusion Post-Procedural Dx: Left-sided pleural effusion Analgesia: 10cc of 1% Liquid Lidocaine Procedure: The patient was placed in an left lateral decubitus position and thoracic US was used to select a spot for the procedure. A spot along the posterior axillary line was marked in the 7th intercostal space. The patient was then draped and prepped in a sterile fashion. A modified Seldinger technique was then used for catheter placement. Approximately 5 cm anterior a small 6 cm cut was performed and tunneling was made to the initial and catheter insertion. The indwelling pleural catheter easily slid into the left hemithorax. Flowing this approximately 1100cc of serosanguineous pleural fluid was removed. EBL: 3cc Complications: none
[2016-09-28] MEDS: SODIUM CHLORIDE 0.9% 1000ML 1,000 ML IV SCH (18:17)
[2016-09-28] MEDS: PIPERACILL/TAZOBAC IV 3.375 GM in DEXTROSE 5% 100ML 100 ML IV SCH (18:17)
[2016-09-28] MEDS ORDERED: NURSING VERBAL MED ORDER ONE (18:30)
[2016-09-28] MEDS ORDERED: MIDAZOLAM HCL 5 MG/ML 1 ML VIAL IV ONE (18:30)
[2016-09-28 18:54] LABS: PLEURAL FLUID TOTAL PROTEIN 3.5 g/dl
[2016-09-28 19:17] LABS: PLEURAL FLUID APPEARANCE CLOUDY; PLEURAL FLUID COLOR AMBER; PLEURAL FLUID MONONUC RELAT 27.5 %; PLEURAL FLUID POLYNUC 72.5 %; PLEURAL FLUID SOURCE RIGHT LUNG; PLEURAL FLUID WBC (A) 415 /uL
[2016-09-28 20:00] VITALS: BP 86/61; PULSE 123; TEMP 36.4; O2SAT 93; O2SAT 96
[2016-09-28 22:00] VITALS: BP 101/70; PULSE 113; O2SAT 96
[2016-09-28 23:59] VITALS: O2SAT 96
[2016-09-29] VITALS (13 sets, daily range): BP systolic 80–114; BP diastolic 62–87; PULSE 108–117; TEMP 36.3–36.6; O2SAT 90–98
[2016-09-29] MEDS: PIPERACILL/TAZOBAC IV 3.375 GM in DEXTROSE 5% 100ML 100 ML IV SCH ×3 (02:03→18:25)
[2016-09-29] MEDS: LIDOCAINE HCL 2% VISCOUS SOLN 60 ML, DiphenhydrAMINE HCL SYRUP 150 MG, ALUMINUM/MAGNESI... MT SCH ×28 (03:03→23:50)
[2016-09-29 03:27] LABS: PARTIAL THROMBOPLASTIN RATIO 3.3
[2016-09-29] MEDS: SODIUM CHLORIDE 0.9% 1000ML 1,000 ML IV SCH (05:45)
[2016-09-29 05:52] LABS: MEAN CORPUSCULAR HGB CONC 32.5 g/dl (32-36)
[2016-09-29 05:58] LABS: HEMATOCRIT 42.2 % (37-47); RED BLOOD COUNT 5.48 M/uL (4.2-5.4); WHITE BLOOD COUNT 18.55 K/uL (4.8-10.8)
[2016-09-29 06:21] LABS: PLATELET COUNT 122 K/uL (130-400)
[2016-09-29 06:22] LABS: BASO % 0.1 %; BASO ABS # 0.01 K/uL (0-0.2); COMPLETE YES; ECHINOCYTES 2+; IG% 0.9 %; LYMPH % 1.7 %; LYMPH ABS # 0.31 K/uL (1.2-3.4); MONO % 1.7 %; NEUT % 95.6 %; PLT ESTIMATE DECREASED
[2016-09-29 06:30] LABS: BUN/CREATININE RATIO 27.6 (10-20); CALCIUM 8.3 mg/dl (8.5-10.1); CREATININE 0.85 mg/dl (0.60-1.20); MAGNESIUM 1.9 mg/dl (1.8-2.4)
[2016-09-29 06:39] LABS: PHOSPHORUS 2.8 mg/dl (2.5-4.9)
--- NOTE | 2016-09-29 08:28 | DIAGNOSTIC IMAGING REPORT ---
SINGLE VIEW CHEST CLINICAL HISTORY: Sepsis. FINDINGS: An AP, portable, upright chest radiograph is compared to chest x-ray and chest CT dated 09/28/2016. The examination is degraded by portable technique and patient rotation. There is internal jugular central venous infusion port is noted. The cardiomediastinal silhouette is unremarkable. Atherosclerotic calcification is observed in the thoracic aorta. A pleural drain is now seen at the right lung base. There are small layering pleural effusions with diffuse lower lobe consolidation. The right pleural effusion appears significantly decreased in size from yesterday. Diffuse pulmonary metastatic disease is again seen. No pneumothorax is seen. The skeletal structures are osteopenic. The bony thorax is grossly intact. IMPRESSION: 1. A pleural drain is now seen at the right lung base. There are small layering pleural effusions with diffuse lower lobe consolidation. The right pleural effusion has significantly decreased in size from yesterday. 2. Findings of multifocal pulmonary metastatic disease are again seen. 3. No pneumothorax is identified. Electronically signed by: Jose A Garcia M.D. 09/29/2016 8:27 AM Dictated Date/Time: 09/29/2016 8:19 AM
[2016-09-29] MEDS ORDERED: DEXAMETHASONE 4 MG TAB PO SCH (09:00)
--- NOTE | 2016-09-29 09:13 | Clinical Documentation Query ---
SAMARA Bills : CLINICAL DOCUMENTATION QUERIES QUERY 1 OF 4 Patient is a 71 year old female admitted for evaluation and treatment of sepsis secondary to pneumonitis. CT scan of the chest demonstrated a "large right pleural effusion" in the setting of "diffuse/widespread pulmonary metastatic disease". Pulmonary consultation undertaken for insertion of pleurX catheter for symptomatic improvement in breathing. As appropriate, consider documentation of this effusion as suggested below as this impacts ICD-10 code assignment. Thank you. In your clinical opinion is this patient being managed for: ( x) Malignant right pleural effusion ( ) Other explanation of clinical findings (Please Explain) ( ) Unable to determine (Please Define) ( ) Need to Discuss ( ) Not Agree The medical record reflects the following clinical findings, treatment, and risk factors. Clinical Indicators: As above Treatment: Insertion of intrapleural catheter for drainage Risk Factors: Colorectal cancer with diffuse chest and abdomino-pelvic metastases. QUERY 2 OF 4 Assessment has included "respiratory distress", respiratory rates up to 34 breaths/minute, oxygen requirements up to an FiO2 of 100% with SpO2's in the 80's. Treatment has included Bi-PAP therapy with ongoing oxygen supplementation, ICU standard of care, Iintensivist and pulmonary consultation, IV antibiotics, cultures. In your clinical opinion is this patient being managed for: (x ) Acute respiratory failure with hypoxia ( ) Other explanation of clinical findings (Please Explain) ( ) Unable to determine (Please Define) ( ) Need to Discuss ( ) Not Agree The medical record reflects the following clinical findings, treatment, and risk factors. Clinical Indicators: As above Treatment:Treatment has included Bi-PAP therapy with ongoing oxygen supplementation, ICU standard of care, Iintensivist and pulmonary consultation, IV antibiotics, cultures. Risk Factors: Pulmonary metastasis, pneumonitis, ?malignant effusion, smoking history QUERY 3 OF 4 Documentation has included "protein-calorie malnutrition". Patient has been described as "thin", "cachectic". BMI 18.3 kg/m*m associated with a body weight of 93 lbs. Total protein 4. with albumin level of 1.4. Supportive documentation has included "She's had generally very poor appetite for the past several months". In your clinical opinion is this patient being managed for: ( x ) Severe protein-calorie malnutrition ( ) Other explanation of clinical findings (Please Explain) ( ) Unable to determine (Please Define) ( ) Need to Discuss ( ) Not Agree The medical record reflects the following clinical findings, treatment, and risk factors. Clinical Indicators: As above Treatment: Dietary consultation Risk Factors: Colorectal cancer, diffuse chest and abdominopelvic metastasis, chemotherapy associated anorexia, NPO status QUERY 4 OF 4 Serum troponin levels of .326, 0.417, and 0.364 ng/ml. Elevated CK-MB and CK/CKMB ratio on admission as well. EKG and telemetry have demonstrated consistent tachycardia, 110's to 140's since admission in the setting of sepsis secondary to pneumonitis and large right pleural effusion. EKG suggested possible ST & T wave abnormality laterally. She is being monitored in ICU and seen for acute and chronic conditions by medical doctor nuclear medicine, pulmonary, and oncologic consultants. She is on a heparin infusion and cardiac rhythm is being monitored continuously. She has undergone serial troponin testing as above. In your clinical opinion is this patient being managed for: ( x) Myocardial demand ischemia ( ) Other explanation of clinical findings (Please Explain) ( ) Unable to determine (Please Define) ( ) Need to Discuss ( ) Not Agree The medical record reflects the following clinical findings, treatment, and risk factors. Clinical Indicators: As above Treatment:She is being monitored in ICU and seen for acute and chronic conditions by medical doctor nuclear medicine, pulmonary, and oncologic consultants. She is on a heparin infusion and cardiac rhythm is being monitored continuously. She has undergone serial troponin testing as above. Risk Factors: Age, former smoker, tachycardia, sepsis, infectious process, physiologic demands of diffuse metastatic disease. Please clarify and document your clinical opinion in the progress notes and discharge summary. Terms such as "probable", "suspected", "likely", "questionable", "possible", or "still to be ruled out" are acceptable. IF IN AGREEMENT, YOU MUST DOCUMENT ABOVE DIAGNOSTIC STATEMENT IN DAILY PROGRESS NOTES AND DISCHARGE SUMMARY. This document is not part of the patient's record. Thank You, Vu Rivera, RN [phone]
[2016-09-29] MEDS ORDERED: PANTOprazole SOD 40 MG TAB PO ONE (09:42)
[2016-09-29] MEDS: VANCOMYCIN INJ 700 MG in SODIUM CHLORIDE 0.9% 250ML 250 ML IV SCH (09:51)
[2016-09-29] MEDS: METHYLPREDNISOLONE IV 40 MG in SYRINGE 0 ML IV SCH ×2 (09:51→19:43)
[2016-09-29] MEDS ORDERED: ENOXAPARIN 60 MG/0.6 ML SYR SQ SCH (10:00)
--- NOTE | 2016-09-29 10:46 | Critical Care Progress Note ---
Critical Care Progress Note Date of Service September 29, 2016. ICU Day ICU Day Number: [address] Lehman Subjective Patient comfortable, feels better PleurX placement Slept well overnight Currently on Nasal CPAP, tolerating well Objective General Appearance: mild distress, cachetic Head: normocephalic, atraumatic Eyes: PERRLA, no discharge ENT: normal ear exam, normal nasal exam, normal mouth exam, Nasal CPAP Neck: no tenderness, trachea midline, supple, other (sternocleidomastoid retractions) Respiratory: other (market left-sided Velcro crackles with coarse breath sounds ; diminished breath sounds on the right side) Cardiovascular: normal S1S2, no murmur, remains tachycardic but improved to low 100s Abdomen: non tender, normal bowel sounds, no rebound, other (ileostomy) Back: no CVA tenderness Upper Extremities: no edema Lower Extremities: no edema, no calf pain or tenderness Neuro: AO X 3; CAM-ICU negative; less dyspneic with conversation Current SOFA Score SOFA Score Response (Comments) Value Platelets (x10) > 150 0 Bilirubin (mg/dL) < 1.2 0 Curtis Coma Score 15 0 Level of Hypotension MAP less than 70 1 Creatinine (mg/dL) < 1.2 0 Total 1 Assessment & Plan (1) Ground glass opacity present on imaging of lung (2) Sepsis (3) Acute respiratory failure with hypoxia (4) Adenocarcinoma of sigmoid colon (5) Metastatic disease (6) Elevated troponin (7) Acute kidney failure (8) Protein-calorie malnutrition (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 NEUROLOGICAL - GCS: 15 - AO x 3 - Sedation: None indicated at this time - Pain regimen: Morphine 2 mg q 2 hours; titrate for pain from metastatic malignancy CARDIOVASCULAR - BP: BP stable overnight, currently approximately 90/60s Given age, size and severity of pulmonary disease, goal MAP 60 is appropriate - Vasopressor support: Not a candidate as patient does not want central access - IV fluids: discontinued today as patient is tolerating PO Elevated Troponin - Unlikely ACS; no complaints of chest pain, no clinical correlate based on symptoms - Likely combination of supply/demand mismatch, underlying PNA, massive pleural effusion and pneumonitis - TnI peaked at 0.417; will discontinue monitoring RESPIRATORY - RR: 24-26; Nasal CPAP: 55 L / FiO2 70% Saturations > 95% Wean as tolerated to nasal cannula preferably, goal saturation > 92% Right Pleural Effusion - Recommendations appreciated - PleurX catheter placed yesterday; drained serosanguinous fluid - Pleural Protein/Serum Protein ratio > 0.5; suggests exudate; consistent with pulmonary infection or malignancy - CXR reviewed; no evidence of pneumothorax Left Ground Glass Opacification - Consistent with Pneumonitis - Possible etiologies 2/2 pulmonary metastases, infection or systemic chemotherapy effects - D/C Decadron; needs high dose steroids; start Solu-Medrol 40 mg BID IV - Possible superimposing infectious process; antibiotics as noted below GASTROINTESTINAL - Diet: Resume diet - GI Prophylaxis: Protonix 40 mg PO daily - Bowel regimen: Monitor for BM, start regimen as necessary Chronic Protein/Calorie Malnutrition - 2/2 Consumptive malignancy - Dietary recommendations appreciated RENAL//ENDOCRINE - Fluid Balance: Total: + 2.2 L since admission 24 hour: In 769 ml ; Out 1675 ml; net -[id number] Acute Kidney Injury - Resolving 2/2 Hypotension, dehydration, chronic malnutrition - Cr: 0.85 today (Baseline: 0.6-0.8) - IV Fluids: Discontinue as patient is tolerating PO diet HEMATOLOGY/INFECTIOUS DISEASE Sepsis - PNA vs UTI - Tmax: Afebrile WBC: improved to 18 (previously 26) - Hb/Hct 13.7/42, down from 15/46, possibly dilutional from fluid resuscitation - Lactate Improved to 2.5 today; Pro-calcitonin increased from 1.3 --> 2.5 - CT suggests possible left-sided PNA, likely 2/2 obstructive metastases - UA suggests possibly pyelonephritis; urine culture pending - Blood cultures pending x 2 - Antibiotics: Vancomycin/Zosyn/Levaquin Day 2; no change to regimen at this this point 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 Marinelli has discussed terminal prognosis IVC Thrombosis - Started on Heparin infusion yesterday - JEREMIE resolving, can transition to Lovenox, which would be a suitable home regimen - DVT Prophylaxis: Transition to Lovenox LINES/IV ACCESS - Right Subclavian A port - Right forearm 18 G - Left forearm 20 G CODE STATUS - Do not resuscitate DISPOSITION - OT/PT: Ordered - Patient does not require hemodynamic support; respiratory support she is currently receiving can be done on medical floor. Stable for transfer today. Resident Physician Supervision Note: Dr. Park was resident physician during care of patient. I separately evaluated patient and did history and exam. I discussed the case with the resident and generally agree with the findings and plan. Stable for downgrade to [facility]. Documented By: Vu Lehman DO Consults & Procedures Consultants: Pulmonary Hematology/Oncology Palliative Care Procedures: PleurX catheter on 09/28 Data Medications: Current Inpatient Medications Medications (Trade) Dose Ordered Sig/Sarahi Route Start Time Stop Time Status Last Admin Dose Admin Ioversol (Optiray 320) 125 ml UD PRN IV 09/28/16 10:30 10/02/16 10:29 Acetaminophen (Tylenol Tab) 650 mg Q4H PRN PO 09/28/16 13:15 10/28/16 13:14 Lorazepam (Ativan Tab) 0.5 mg Q4H PRN PO 09/28/16 13:15 10/28/16 13:14 Morphine Sulfate (MoRPHine SULFATE INJ) 2 mg Q2H PRN IV 09/28/16 13:15 10/12/16 13:14 Vancomycin HCl 1 ea 1 ea UD N/A 09/28/16 15:29 10/28/16 15:28 Levofloxacin 750 mg/Prmx 150 ml @ 100 mls/hr Q48H IV 09/30/16 12:00 10/07/16 11:59 Vancomycin HCl 700 mg/Sodium Chloride 264 ml @ 125 mls/hr Q24H IV 09/29/16 10:00 10/06/16 09:59 09/29/16 09:51 125 MLS/HR Piperacillin Sod/ Tazobactam Sod/ Dextrose 115 ml @ 28.75 mls/ hr Q8H IV 09/28/16 18:00 10/05/16 17:59 09/29/16 09:52 28.75 MLS/HR Lidocaine HCl/ Diphenhydramine HCl/Al Hydroxide/ Mg Hydroxide/ Glycerin/Barcode (VISCOUS LIDOCAINE 2% Soln/ Benadryl Syrup/ Maalox Susp/ Glycerin Anhydrous Soln) Q4 MT 09/28/16 16:00 10/28/16 15:59 09/29/16 09:50 10 ML Piperacillin Sod/ Tazobactam Sod (Consult) 1 ea UD N/A 09/28/16 15:30 10/28/16 15:29 Levofloxacin 1 ea 1 ea UD N/A 09/28/16 15:45 10/28/16 15:44 Heparin Sodium/ Dextrose (Heparin 25,000 Unit/500ml D5W) 500 ml @ 13 mls/hr Q24H PRN IV 09/28/16 18:00 09/29/16 11:00 09/28/16 19:49 15 MLS/HR Heparin Sodium (Porcine) 5 ml 5 ml PRN PRN IV 09/29/16 03:45 10/29/16 03:44 Methylprednisolone Sodium Succinate/ Syringe (Solu-Medrol IV/ Syringe) 0.64 ml @ 1.5 mls/min BID IV 09/29/16 10:00 10/29/16 09:59 09/29/16 09:51 1.5 MLS/MIN Pantoprazole Sodium (Protonix Tab) 40 mg QAM PO 09/30/16 09:00 10/30/16 08:59 Enoxaparin Sodium (Lovenox Inj) 36 mg Q12H SQ 09/29/16 10:00 10/29/16 09:59 Miscellaneous (Stop Order) 1 ea ONE ONCE N/A 09/29/16 11:00 09/29/16 11:01 I & O: 24-Hour Column 09/29/16 08:00 Intake Total 4079 ml Output Total 1875 ml Balance 2204 ml Vital Signs: Date Time Temp Pulse Resp B/P Pulse Ox O2 Delivery O2 Flow Rate FiO2 09/29/16 07:26 110 26 95 Nasal Cannula 55.0 95 09/29/16 06:00 109 14 95/62 98 High Flow Oxygen 30.0 95 09/29/16 04:00 36.5 108 15 92/65 97 High Flow Oxygen 30.0 95 09/29/16 04:00 98 High Flow Oxygen 30.0 95 09/29/16 02:00 108 15 91/65 97 High Flow Oxygen 30.0 95 09/29/16 00:00 36.6 117 16 103/67 96 High Flow Oxygen 30.0 95 09/28/16 23:59 96 High Flow Oxygen 30.0 95 09/28/16 22:00 113 19 101/70 96 High Flow Oxygen 30.0 09/28/16 20:00 36.4 123 20 86/61 93 High Flow Oxygen 40.0 100 09/28/16 20:00 96 High Flow Oxygen 40.0 100 09/28/16 16:33 36.3 141 32 138/110 87 40.0 100 09/28/16 15:13 141 22 109/76 88 BiPAP 09/28/16 14:47 138 24 98/68 88 BiPAP 09/28/16 14:07 139 24 112/77 87 BiPAP 09/28/16 13:53 141 26 105/63 89 BiPAP 09/28/16 13:43 145 24 74/44 89 BiPAP 09/28/16 13:27 136 09/28/16 11:57 112 22 117/79 97 BiPAP 09/28/16 11:22 93 60 09/28/16 11:22 123 30 93 BiPAP/CPAP 60 09/28/16 11:22 116 22 127/84 93 BiPAP 09/28/16 10:33 130 34 93 BiPAP 50 09/28/16 10:33 130 93 50 09/28/16 10:27 92 Non-Rebreather Laboratory Results: Last 24 Hours Test 09/28/16 10:40 09/28/16 11:00 09/28/16 11:18 09/28/16 11:25 White Blood Count 26.36 K/uL Red Blood Count 6.17 M/uL Hemoglobin 15.7 g/dL Hematocrit 46.8 % Mean Corpuscular Volume 75.9 fL Mean Corpuscular Hemoglobin 25.4 pg Mean Corpuscular Hemoglobin Concent 33.5 g/dl Platelet Count 161 K/uL Neutrophils (%) (Auto) 95.9 % Lymphocytes (%) (Auto) 1.1 % Monocytes (%) (Auto) 2.0 % Eosinophils (%) (Auto) 0.0 % Basophils (%) (Auto) 0.1 % Neutrophils # (Auto) 25.28 K/uL Lymphocytes # (Auto) 0.30 K/uL Monocytes # (Auto) 0.52 K/uL Eosinophils # (Auto) 0.00 K/uL Basophils # (Auto) 0.03 K/uL RDW Standard Deviation 53.6 fL RDW Coefficient of Variation 19.7 % Immature Granulocyte % (Auto) 0.9 % Immature Granulocyte # (Auto) 0.23 K/uL Echinocytes 1+ Sodium Level 137 mmol/L Potassium Level 4.4 mmol/L Chloride Level 102 mmol/L Carbon Dioxide Level 23 mmol/L Anion Gap 12.0 mmol/L 20.0 mmol/L Blood Urea Nitrogen 30 mg/dl Creatinine 1.10 mg/dl Est Creatinine Clear Calc Drug Dose 32.8 ml/min Estimated GFR () 59.3 Estimated GFR (Non- 51.2 BUN/Creatinine Ratio 27.0 Random Glucose 142 mg/dl Calcium Level 9.9 mg/dl Total Bilirubin 0.6 mg/dl Aspartate Amino Transf (AST/SGOT) 32 U/L Alanine Aminotransferase (ALT/SGPT) 41 U/L Alkaline Phosphatase 271 U/L Total Creatine Kinase 78 U/L Creatine Kinase MB 7.9 ng/ml Creatine Kinase MB Ratio 10.1 Troponin I 0.326 ng/ml Total Protein 6.1 gm/dl Albumin 2.1 gm/dl Globulin 4.0 gm/dl Albumin/Globulin Ratio 0.5 Bedside Lactic Acid Venous 4.86 mmol/L Bedside Hemoglobin 17.7 g/dl Bedside Hematocrit 52 % Bedside Sodium 134 mEq/L Bedside Potassium 4.4 mEq/L Bedside Chloride 100 mEq/L Bedside Total CO2 19 mEq/l Bedside Blood Urea Nitrogen 29 mg/dl Bedside Creatinine 1.0 mg/dl Bedside Glucose (other) 147 mg/dl Bedside Ionized Calcium (Markus) 1.25 mmol/l Prothrombin Time 13.2 SECONDS Prothromb Time International Ratio 1.2 Activated Partial Thromboplast Time 29.7 SECONDS Partial Thromboplastin Ratio 1.1 Test 09/28/16 12:30 09/28/16 15:53 09/28/16 20:58 09/28/16 21:27 Urine Color YELLOW Urine Appearance CLOUDY Urine pH 5.0 Urine Specific [place] 1.043 Urine Protein TRACE Urine Glucose (UA) NEG Urine Ketones NEG Urine Occult Blood TRACE Urine Nitrite NEG Urine Bilirubin NEG Urine Urobilinogen NEG Urine Leukocyte Esterase NEG Urine WBC (Auto) >30 /hpf Urine RBC (Auto) 0-4 /hpf Urine Hyaline Casts (Auto) >30 /lpf Urine Epithelial Cells (Auto) >30 /lpf Urine Bacteria (Auto) NEG Urine Renal Epithelial Cells 5-10 /lpf Urine Pathogenic Casts >30 WBC CASTS /lpf Sodium Level 139 mmol/L Potassium Level 4.6 mmol/L Chloride Level 108 mmol/L Carbon Dioxide Level 19 mmol/L Anion Gap 12.0 mmol/L Blood Urea Nitrogen 25 mg/dl Creatinine 1.00 mg/dl Est Creatinine Clear Calc Drug Dose 36.0 ml/min Estimated GFR () 66.6 Estimated GFR (Non- 57.4 BUN/Creatinine Ratio 25.2 Random Glucose 153 mg/dl Lactic Acid Level 4.6 mmol/L Calcium Level 8.7 mg/dl Phosphorus Level 3.3 mg/dl Magnesium Level 2.3 mg/dl Procalcitonin 1.35 ng/ml Chemistry Specimen Hemolysis Troponin I 0.417 ng/ml Bedside Glucose 132 mg/dl Test 09/29/16 02:40 09/29/16 05:15 09/29/16 09:41 09/29/16 10:00 Activated Partial Thromboplast Time 85.3 SECONDS Partial Thromboplastin Ratio 3.3 White Blood Count 18.55 K/uL Red Blood Count 5.48 M/uL Hemoglobin 13.7 g/dL Hematocrit 42.2 % Mean Corpuscular Volume 77.0 fL Mean Corpuscular Hemoglobin 25.0 pg Mean Corpuscular Hemoglobin Concent 32.5 g/dl Platelet Count 122 K/uL Neutrophils (%) (Auto) 95.6 % Lymphocytes (%) (Auto) 1.7 % Monocytes (%) (Auto) 1.7 % Eosinophils (%) (Auto) 0.0 % Basophils (%) (Auto) 0.1 % Neutrophils # (Auto) 17.75 K/uL Lymphocytes # (Auto) 0.31 K/uL Monocytes # (Auto) 0.32 K/uL Eosinophils # (Auto) 0.00 K/uL Basophils # (Auto) 0.01 K/uL RDW Standard Deviation 55.0 fL RDW Coefficient of Variation 19.8 % Immature Granulocyte % (Auto) 0.9 % Immature Granulocyte # (Auto) 0.16 K/uL Platelet Estimate DECREASED Echinocytes 2+ Sodium Level 140 mmol/L Potassium Level 4.0 mmol/L Chloride Level 109 mmol/L Carbon Dioxide Level 20 mmol/L Anion Gap 11.0 mmol/L Blood Urea Nitrogen 23 mg/dl Creatinine 0.85 mg/dl Est Creatinine Clear Calc Drug Dose 41.9 ml/min Estimated GFR () 81.0 Estimated GFR (Non- 69.9 BUN/Creatinine Ratio 27.6 Random Glucose 142 mg/dl Lactic Acid Level 2.5 mmol/L Calcium Level 8.3 mg/dl Phosphorus Level 2.8 mg/dl Magnesium Level 1.9 mg/dl Total Bilirubin 0.4 mg/dl Direct Bilirubin 0.2 mg/dl Aspartate Amino Transf (AST/SGOT) 59 U/L Alanine Aminotransferase (ALT/SGPT) 57 U/L Alkaline Phosphatase 217 U/L Troponin I 0.364 ng/ml Total Protein 4.8 gm/dl Albumin 1.4 gm/dl Procalcitonin 2.52 ng/ml
[2016-09-29 10:55] LABS: PARTIAL THROMBOPLASTIN RATIO 2.5
[2016-09-29 11:19] LABS: ANTI-Xa* 0.48 IU/ML (0 - <0.10)
--- NOTE | 2016-09-29 13:10 | Progress Note ---
Subjective Date of Service: September 29, 2016. Subjective Pt evaluation today including: conversation w/ patient, physical exam, chart review, lab review, review of studies, conversation w/ senior sales consultant, review of inpatient medication list Very frail and weak, and tired, poor appetite, tachycardia, no spiking fever, Manuel catheter in place, Tmax 37.4, good urine output Problem List Medical Problems: (1) Pneumonia Status: Acute (2) Sepsis Status: Acute Review of Systems Constitutional: + fatigue, + weakness Eyes: No diplopia, No discharge, No eye pain, No redness, No worsening of vision ENT: No dental problems, No hearing loss, No nasal symptoms, No sore throat, No tinnitus, No trouble swallowing, No unusual epistaxis Respiratory: + cough, + shortness of breath Cardiac: No PND, No chest pain, No claudication, No edema, No orthopnea, No palpitations Abdomen: No constipation, No diarrhea, No nausea, No pain, No vomiting Musculoskeletal: No calf pain, No joint pain, No muscle pain, No swelling Female : No abnormal vaginal bleeding, No dysuria, No hematuria, No incontinence, No urinary frequency, No vaginal discharge Neurologic: No balance problems, No memory loss, No numbness/tingling, No paralysis, No vertigo, No weakness Psychiatric: No anhedonism, No anxiety, No depression symptoms, No insomnia, No substance abuse Heme: No abnormal bleeding/bruising, No clotting problems, No night sweats, No swollen lymph nodes Endo: + fatigue Skin: No bleeding, No color change, No itch, No new/changing skin lesions, No rash Objective Vital Signs Date Time Temp Pulse Resp B/P Pulse Ox O2 Delivery O2 Flow Rate FiO2 09/29/16 12:00 112 20 101/78 92 Nasal Cannula 6.0 09/29/16 12:00 Nasal Cannula 6.0 09/29/16 10:00 111 24 80/64 94 High Flow Oxygen 55.0 70 09/29/16 08:00 High Flow Oxygen 55.0 75 09/29/16 08:00 36.5 110 24 94/72 94 High Flow Oxygen 55.0 75 09/29/16 07:26 110 26 95 Nasal Cannula 55.0 95 09/29/16 06:00 109 14 95/62 98 High Flow Oxygen 30.0 95 09/29/16 04:00 36.5 108 15 92/65 97 High Flow Oxygen 30.0 95 09/29/16 04:00 98 High Flow Oxygen 30.0 95 09/29/16 02:00 108 15 91/65 97 High Flow Oxygen 30.0 95 09/29/16 00:00 36.6 117 16 103/67 96 High Flow Oxygen 30.0 95 09/28/16 23:59 96 High Flow Oxygen 30.0 95 09/28/16 22:00 113 19 101/70 96 High Flow Oxygen 30.0 09/28/16 20:00 36.4 123 20 86/61 93 High Flow Oxygen 40.0 100 09/28/16 20:00 96 High Flow Oxygen 40.0 100 09/28/16 16:33 36.3 141 32 138/110 87 40.0 100 09/28/16 15:13 141 22 109/76 88 BiPAP 09/28/16 14:47 138 24 98/68 88 BiPAP 09/28/16 14:07 139 24 112/77 87 BiPAP 09/28/16 13:53 141 26 105/63 89 BiPAP 09/28/16 13:43 145 24 74/44 89 BiPAP 09/28/16 13:27 136 Physical Exam General Appearance: WD/WN, no apparent distress, + thin Eyes: normal inspection, PERRL, EOMI, sclerae normal ENT: normal ENT inspection, hearing grossly normal, pharynx normal Neck: supple, no adenopathy, thyroid normal, no JVD, no carotid bruits, trachea midline Respiratory/Chest: chest non-tender, normal breath sounds, no respiratory distress, no accessory muscle use, + decreased breath sounds, + wheezing, + pertinent finding (right anterior chest wall has med pot) Cardiovascular: regular rate, rhythm, no edema, no gallop, no JVD, no murmur Abdomen: normal bowel sounds, non tender, soft, no organomegaly, no pulsatile mass Extremities: normal range of motion, non-tender, normal inspection, no pedal edema, no calf tenderness, normal capillary refill, pelvis stable Neurologic/Psychiatric: pelts skinner II-XII nml as tested, no motor/sensory deficits, alert, normal mood/affect, oriented x 3 Skin: warm/dry, no rash, + pertinent finding (some bruise) Lymphatic: no adenopathy Laboratory Results Last 24 Hours Test 09/28/16 15:53 5/22/17 20:58 09/28/16 21:27 09/29/16 02:40 Sodium Level 139 mmol/L Potassium Level 4.6 mmol/L Chloride Level 108 mmol/L Carbon Dioxide Level 19 mmol/L Anion Gap 12.0 mmol/L Blood Urea Nitrogen 25 mg/dl Creatinine 1.00 mg/dl Est Creatinine Clear Calc Drug Dose 36.0 ml/min Estimated GFR () 66.6 Estimated GFR (Non- 57.4 BUN/Creatinine Ratio 25.2 Random Glucose 153 mg/dl Lactic Acid Level 4.6 mmol/L Calcium Level 8.7 mg/dl Phosphorus Level 3.3 mg/dl Magnesium Level 2.3 mg/dl Procalcitonin 1.35 ng/ml Chemistry Specimen Hemolysis Troponin I 0.417 ng/ml Bedside Glucose 132 mg/dl Activated Partial Thromboplast Time 85.3 SECONDS Partial Thromboplastin Ratio 3.3 Test 09/29/16 05:15 09/29/16 10:15 White Blood Count 18.55 K/uL Red Blood Count 5.48 M/uL Hemoglobin 13.7 g/dL Hematocrit 42.2 % Mean Corpuscular Volume 77.0 fL Mean Corpuscular Hemoglobin 25.0 pg Mean Corpuscular Hemoglobin Concent 32.5 g/dl Platelet Count 122 K/uL Neutrophils (%) (Auto) 95.6 % Lymphocytes (%) (Auto) 1.7 % Monocytes (%) (Auto) 1.7 % Eosinophils (%) (Auto) 0.0 % Basophils (%) (Auto) 0.1 % Neutrophils # (Auto) 17.75 K/uL Lymphocytes # (Auto) 0.31 K/uL Monocytes # (Auto) 0.32 K/uL Eosinophils # (Auto) 0.00 K/uL Basophils # (Auto) 0.01 K/uL RDW Standard Deviation 55.0 fL RDW Coefficient of Variation 19.8 % Immature Granulocyte % (Auto) 0.9 % Immature Granulocyte # (Auto) 0.16 K/uL Platelet Estimate DECREASED Echinocytes 2+ Sodium Level 140 mmol/L Potassium Level 4.0 mmol/L Chloride Level 109 mmol/L Carbon Dioxide Level 20 mmol/L Anion Gap 11.0 mmol/L Blood Urea Nitrogen 23 mg/dl Creatinine 0.85 mg/dl Est Creatinine Clear Calc Drug Dose 41.9 ml/min Estimated GFR () 81.0 Estimated GFR (Non- 69.9 BUN/Creatinine Ratio 27.6 Random Glucose 142 mg/dl Lactic Acid Level 2.5 mmol/L Calcium Level 8.3 mg/dl Phosphorus Level 2.8 mg/dl Magnesium Level 1.9 mg/dl Total Bilirubin 0.4 mg/dl Direct Bilirubin 0.2 mg/dl Aspartate Amino Transf (AST/SGOT) 59 U/L Alanine Aminotransferase (ALT/SGPT) 57 U/L Alkaline Phosphatase 217 U/L Troponin I 0.364 ng/ml Total Protein 4.8 gm/dl Albumin 1.4 gm/dl Procalcitonin 2.52 ng/ml Activated Partial Thromboplast Time 66.0 SECONDS Partial Thromboplastin Ratio 2.5 Heparin Anti-Xa Act, Low Molec Wt 0.48 IU/ML Assessment and Plan 71-year-old white female admitted on 09/28/2016 to ICU because of sepsis pneumonia and acute respirator failure Sepsis, possible pna with Ground glass opacity present on imaging of lung, or Pneumonitis Acute respiratory failure with hypoxia 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, s/p PleurX catheter placed yesterday; drained serosanguinous fluid - Pleural Protein/Serum Protein ratio > 0.5; suggests exudate; consistent with pulmonary infection or malignancy Adenocarcinoma of sigmoid colon Metastatic disease Myocardial demand ischemia with Elevated troponin Acute kidney failure Protein-calorie malnutrition 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 Severe protein-calorie malnutrition was on cpap, now is on nasal cannula preferably, goal saturation > 92% Acute Kidney Injury: Resolving 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 Marinelli has discussed terminal prognosis IVC Thrombosis - Started on Heparin infusion yesterday, now is Lovenox 0.85mg/kg per recs of dental internship, - DVT Prophylaxis: Transition to Lovenox CODE STATUS - Do not resuscitate - plalliative care saw pt , per pt's wishes, if/when decompensation/decline occurs: no escalation of care including compressions, central line, or intubation and allow natural . Patient wishes to be made comfortable if/ when she gets to that point. Has morphine 2mg IV prn ordered for pain, would encourage use for air hunger as well. DISPOSITION - OT/PT: Ordered - Patient does not require hemodynamic support; respiratory support she is currently receiving can be done on medical floor. Stable for transfer today. Continued [facility] stay due to: multiple IV medications needed Discharge planning: home
--- NOTE | 2016-09-29 14:50 | Palliative Care Progress Note ---
Palliative Care Progress Note Date of Service September 29, 2016. Subjective Pt evaluation today including: conversation w/ patient, conversation w/ family (sister, Iliana Hutson), chart review Pain: 0/10 PO Intake: tolerating PO Voiding: del rio catheter in place -Had right sided Pleur-X placed yesterday, 1100ml drained initially, then another 750ml. -High flow nasal cannula at 80% FiO2. -Patient is awake, in less respiratory distress after Pleur-x placed by Dr. Soto. -Spoke with patient and sister about advance directive, patient would like to complete one. -No pain or discomfort -Ileostomy with only air in bag. Review of Systems Constitutional: + weakness Respiratory: + dyspnea on exertion, + shortness of breath Cardiac: No chest pain, No edema Abdomen: No nausea, No pain, No vomiting Female : No problem reported Objective Vital Signs Date Time Temp Pulse Resp B/P Pulse Ox O2 Delivery O2 Flow Rate FiO2 09/29/16 14:03 36.6 115 22 101/75 91 Nasal Cannula 6.0 09/29/16 12:00 112 20 101/78 92 Nasal Cannula 6.0 09/29/16 12:00 Nasal Cannula 6.0 09/29/16 10:00 111 24 80/64 94 High Flow Oxygen 55.0 70 09/29/16 08:00 High Flow Oxygen 55.0 75 09/29/16 08:00 36.5 110 24 94/72 94 High Flow Oxygen 55.0 75 09/29/16 07:26 110 26 95 Nasal Cannula 55.0 95 09/29/16 06:00 109 14 95/62 98 High Flow Oxygen 30.0 95 09/29/16 04:00 36.5 108 15 92/65 97 High Flow Oxygen 30.0 95 09/29/16 04:00 98 High Flow Oxygen 30.0 95 09/29/16 02:00 108 15 91/65 97 High Flow Oxygen 30.0 95 09/29/16 00:00 36.6 117 16 103/67 96 High Flow Oxygen 30.0 95 09/28/16 23:59 96 High Flow Oxygen 30.0 95 09/28/16 22:00 113 19 101/70 96 High Flow Oxygen 30.0 09/28/16 20:00 36.4 123 20 86/61 93 High Flow Oxygen 40.0 100 09/28/16 20:00 96 High Flow Oxygen 40.0 100 09/28/16 16:33 36.3 141 32 138/110 87 40.0 100 09/28/16 15:13 141 22 109/76 88 BiPAP 09/28/16 14:47 138 24 98/68 88 BiPAP Physical Exam General Appearance: no apparent distress, + cachetic, + thin ENT: hearing grossly normal Neck: supple Respiratory/Chest: no respiratory distress, + accessory muscle use (slightly dyspneic, much improved from yesterday) Cardiovascular: no edema, + tachycardia, + normal peripheral pulses Abdomen: normal bowel sounds, + pertinent finding (ileostomy bag with only air/ flatus) Neurologic/Psychiatric: alert, normal mood/affect, oriented x 3 Laboratory Results Last 24 Hours Test 09/28/16 15:53 09/28/16 20:58 09/28/16 21:27 09/29/16 02:40 Sodium Level 139 mmol/L Potassium Level 4.6 mmol/L Chloride Level 108 mmol/L Carbon Dioxide Level 19 mmol/L Anion Gap 12.0 mmol/L Blood Urea Nitrogen 25 mg/dl Creatinine 1.00 mg/dl Est Creatinine Clear Calc Drug Dose 36.0 ml/min Estimated GFR () 66.6 Estimated GFR (Non- 57.4 BUN/Creatinine Ratio 25.2 Random Glucose 153 mg/dl Lactic Acid Level 4.6 mmol/L Calcium Level 8.7 mg/dl Phosphorus Level 3.3 mg/dl Magnesium Level 2.3 mg/dl Procalcitonin 1.35 ng/ml Chemistry Specimen Hemolysis Troponin I 0.417 ng/ml Bedside Glucose 132 mg/dl Activated Partial Thromboplast Time 85.3 SECONDS Partial Thromboplastin Ratio 3.3 Test 09/29/16 05:15 09/29/16 10:15 09/29/16 12:39 White Blood Count 18.55 K/uL Red Blood Count 5.48 M/uL Hemoglobin 13.7 g/dL Hematocrit 42.2 % Mean Corpuscular Volume 77.0 fL Mean Corpuscular Hemoglobin 25.0 pg Mean Corpuscular Hemoglobin Concent 32.5 g/dl Platelet Count 122 K/uL Neutrophils (%) (Auto) 95.6 % Lymphocytes (%) (Auto) 1.7 % Monocytes (%) (Auto) 1.7 % Eosinophils (%) (Auto) 0.0 % Basophils (%) (Auto) 0.1 % Neutrophils # (Auto) 17.75 K/uL Lymphocytes # (Auto) 0.31 K/uL Monocytes # (Auto) 0.32 K/uL Eosinophils # (Auto) 0.00 K/uL Basophils # (Auto) 0.01 K/uL RDW Standard Deviation 55.0 fL RDW Coefficient of Variation 19.8 % Immature Granulocyte % (Auto) 0.9 % Immature Granulocyte # (Auto) 0.16 K/uL Platelet Estimate DECREASED Echinocytes 2+ Sodium Level 140 mmol/L Potassium Level 4.0 mmol/L Chloride Level 109 mmol/L Carbon Dioxide Level 20 mmol/L Anion Gap 11.0 mmol/L Blood Urea Nitrogen 23 mg/dl Creatinine 0.85 mg/dl Est Creatinine Clear Calc Drug Dose 41.9 ml/min Estimated GFR () 81.0 Estimated GFR (Non- 69.9 BUN/Creatinine Ratio 27.6 Random Glucose 142 mg/dl Lactic Acid Level 2.5 mmol/L Calcium Level 8.3 mg/dl Phosphorus Level 2.8 mg/dl Magnesium Level 1.9 mg/dl Total Bilirubin 0.4 mg/dl Direct Bilirubin 0.2 mg/dl Aspartate Amino Transf (AST/SGOT) 59 U/L Alanine Aminotransferase (ALT/SGPT) 57 U/L Alkaline Phosphatase 217 U/L Troponin I 0.364 ng/ml Total Protein 4.8 gm/dl Albumin 1.4 gm/dl Procalcitonin 2.52 ng/ml Activated Partial Thromboplast Time 66.0 SECONDS Partial Thromboplastin Ratio 2.5 Heparin Anti-Xa Act, Low Molec Wt 0.48 IU/ML Bedside Glucose 136 mg/dl Assessment and Plan Problem list: Dyspnea/SOB/respiratory failure ?Pneumonitis Sigmoid adenocarcinoma with widespread metastatic disease Malnutrition/low BMI Weight loss Goals of care (Z51.5) Palliative care plan: -Continue current treatment per patient's wishes. -Remains level 5 DNR/DNI. -Will ask histopathologist to see patient to complete living will. -Continue to provide support to patient and family. -Is transferring out of ICU today. -Ultimately, patient's goal is to get back home. Uncertain if she will want hospice care, we will continue to discuss this. I will follow as needed. Palliative Performance Scale: 30 % Continued [facility] stay due to: multiple IV medications needed
--- NOTE | 2016-09-29 16:45 | Hematology/Oncology Prog Note ---
Hematology/Onc Progress Note Date of Service September 29, 2016. Diagnoses Metastatic colon carcinoma Respiratory insufficiency secondary to progression of disease Medications Medications Administered Medications (Trade) Dose Ordered Sig/Sarahi Route Start Time Stop Time Status Last Admin Dose Admin Sodium Chloride (Nss 1000ml) 1,000 ml @ 999 mls/hr Q1H1M ONCE IV 09/28/16 10:15 09/28/16 11:15 DC 09/28/16 11:01 999 MLS/HR Piperacillin Sod/ Tazobactam Sod (Zosyn Iv) 4.5 gm ONE STAT IV 09/28/16 10:15 09/28/16 10:17 DC 09/28/16 11:52 4.5 GM Levofloxacin (Levaquin / D5W) 750 mg ONE STAT IV 09/28/16 10:15 09/28/16 10:17 DC 09/28/16 11:52 750 MG Hydromorphone HCl (Dilaudid Inj) 1 mg NOW STAT IV 09/28/16 10:54 09/28/16 10:55 DC 09/28/16 11:00 1 MG Ondansetron HCl (Zofran Inj) 4 mg NOW STAT IV 09/28/16 10:54 09/28/16 10:55 DC 09/28/16 10:59 4 MG Ipratropium [place] (Atrovent 0.02% 0.5MG/2.5ML Neb) 1.5 mg ONE STAT INH 09/28/16 11:22 09/28/16 13:00 DC 09/28/16 11:22 1.5 MG Levalbuterol (Xopenex 1.25MG/ 0.5ML Neb) 3.75 mg ONE STAT INH 09/28/16 11:22 09/28/16 13:00 DC 09/28/16 11:22 3.75 MG Vancomycin HCl 1 gm 1 gm STK-MED ONCE .ROUTE 09/28/16 12:19 09/28/16 12:20 DC 09/28/16 12:19 1 GM Sodium Chloride (Nss 500ml) 290 ml @ 999 mls/hr Q18M STAT IV 09/28/16 12:35 09/28/16 12:52 DC 09/28/16 12:35 999 MLS/HR Lorazepam 0.5 mg 0.5 mg NOW STAT IV 09/28/16 12:44 09/28/16 12:46 DC 09/28/16 12:51 0.5 MG Sodium Chloride 1,000 ml @ 90 mls/hr Q11H7M IV 09/28/16 13:08 09/29/16 09:29 DC 09/29/16 05:45 90 MLS/HR Vancomycin HCl 700 mg/Sodium Chloride 264 ml @ 125 mls/hr Q24H IV 09/29/16 10:00 10/06/16 09:59 09/29/16 09:51 125 MLS/HR Piperacillin Sod/ Tazobactam Sod/ Dextrose 115 ml @ 28.75 mls/ hr Q8H IV 09/28/16 18:00 10/05/16 17:59 09/29/16 09:52 28.75 MLS/HR Lidocaine HCl/ Diphenhydramine HCl/Al Hydroxide/ Mg Hydroxide/ Glycerin/Barcode (VISCOUS LIDOCAINE 2% Soln/ Benadryl Syrup/ Maalox Susp/ Glycerin Anhydrous Soln) Q4 MT 09/28/16 16:00 10/28/16 15:59 09/29/16 15:50 10 ML Midazolam HCl 5 mg 5 mg STK-MED ONCE .ROUTE 09/28/16 17:17 09/28/16 17:18 DC 09/28/16 18:21 1 MG Heparin Sodium/ Dextrose 500 ml @ 13 mls/hr Q24H PRN IV 09/28/16 18:00 09/29/16 11:00 DC 09/28/16 19:49 15 MLS/HR Methylprednisolone Sodium Succinate/ Syringe (Solu-Medrol IV/ Syringe) 0.64 ml @ 1.5 mls/min BID IV 09/29/16 10:00 10/29/16 09:59 09/29/16 09:51 1.5 MLS/MIN Pantoprazole Sodium (Protonix Tab) 40 mg 0942 ONCE PO 09/29/16 09:42 09/29/16 09:50 DC 09/29/16 11:46 40 MG Enoxaparin Sodium (Lovenox Inj) 36 mg Q12H SQ 09/29/16 10:00 09/29/16 13:54 DC 09/29/16 11:47 36 MG Miscellaneous (Stop Order) 1 ea ONE ONCE N/A 09/29/16 11:00 09/29/16 11:01 DC 09/29/16 11:47 1 EA Subjective Review of Systems: Constitutional: Negative for night sweats, or fever Eyes: Negative for event change of vision ENT: Negative for epistaxis, nasal discharge, sore throat, or deafness Cardiovascular: Negative for chest pain, palpitations, dizziness, diaphoresis Respiratory: Negative for worsening shortness of breath. She is breathing better and is more comfortable now that she's had a thoracentesis. Gastrointestinal: Negative for diarrhea, hematemesis, melena, nausea, vomiting , or dyspepsia Integumentary (skin): Negative for rash or jaundice discoloration Genitourinary: Negative for urinary frequency, hematuria, or dysuria Neurological: Negative for weakness, seizure activity, headache, or dizziness Lymphatic/Hematologic: Negative for petechiae, bleeding or new adenopathy Musculoskeletal: Negative for new joint or back pain Allergic/Immunologic: Negative for unusual rash or pruritis. Vital Signs Vital Signs Past 12 Hours Date Time Temp Pulse Resp B/P Pulse Ox O2 Delivery O2 Flow Rate FiO2 09/29/16 16:00 97 Nasal Cannula 4.0 09/29/16 16:00 36.4 112 21 94/65 92 Nasal Cannula 4.0 09/29/16 14:03 36.6 115 22 101/75 91 Nasal Cannula 6.0 09/29/16 12:00 112 20 101/78 92 Nasal Cannula 6.0 09/29/16 12:00 Nasal Cannula 6.0 09/29/16 10:00 111 24 80/64 94 High Flow Oxygen 55.0 70 09/29/16 08:00 High Flow Oxygen 55.0 75 09/29/16 08:00 36.5 110 24 94/72 94 High Flow Oxygen 55.0 75 09/29/16 07:26 110 26 95 Nasal Cannula 55.0 95 09/29/16 06:00 109 14 95/62 98 High Flow Oxygen 30.0 95 Physical Exam Constitutional: vitals are stable. Thin female oriented 3 Eyes: Eyes are PAT EOMI without conjuctival erythema or icterus. ENT: External examination was negative for masses. Neck: Negative for masses or palpable thyromegaly Respiratory: Lung sounds were generally clear bilaterally Cardiovascular: Heart was RRR without significant murmur, gallops aoe rubs Gastrointestinal: No palpable hepatic or splenomegaly. The abdomen was soft with normal bowel sounds. Lymphatic system: there was no palpable peripheral lymphadenopathy Musculoskeletal System: The musculoskeletal system seemed concordant with age. Skin: The skin was negative for jaundice. Neurologic exam: The exam was negative for any focal findings. Deep tendon reflexes were equal and symmetrical. Psychiatric exam: Was essentially negative with normal mood and effect. Extremities: Negative for significant edema Laboratory Last 24 Hours Test 09/28/16 20:58 09/28/16 21:27 09/29/16 02:40 09/29/16 05:15 Troponin I 0.417 ng/ml 0.364 ng/ml Bedside Glucose 132 mg/dl Activated Partial Thromboplast Time 85.3 SECONDS Partial Thromboplastin Ratio 3.3 White Blood Count 18.55 K/uL Red Blood Count 5.48 M/uL Hemoglobin 13.7 g/dL Hematocrit 42.2 % Mean Corpuscular Volume 77.0 fL Mean Corpuscular Hemoglobin 25.0 pg Mean Corpuscular Hemoglobin Concent 32.5 g/dl Platelet Count 122 K/uL Neutrophils (%) (Auto) 95.6 % Lymphocytes (%) (Auto) 1.7 % Monocytes (%) (Auto) 1.7 % Eosinophils (%) (Auto) 0.0 % Basophils (%) (Auto) 0.1 % Neutrophils # (Auto) 17.75 K/uL Lymphocytes # (Auto) 0.31 K/uL Monocytes # (Auto) 0.32 K/uL Eosinophils # (Auto) 0.00 K/uL Basophils # (Auto) 0.01 K/uL RDW Standard Deviation 55.0 fL RDW Coefficient of Variation 19.8 % Immature Granulocyte % (Auto) 0.9 % Immature Granulocyte # (Auto) 0.16 K/uL Platelet Estimate DECREASED Echinocytes 2+ Sodium Level 140 mmol/L Potassium Level 4.0 mmol/L Chloride Level 109 mmol/L Carbon Dioxide Level 20 mmol/L Anion Gap 11.0 mmol/L Blood Urea Nitrogen 23 mg/dl Creatinine 0.85 mg/dl Est Creatinine Clear Calc Drug Dose 41.9 ml/min Estimated GFR () 81.0 Estimated GFR (Non- 69.9 BUN/Creatinine Ratio 27.6 Random Glucose 142 mg/dl Lactic Acid Level 2.5 mmol/L Calcium Level 8.3 mg/dl Phosphorus Level 2.8 mg/dl Magnesium Level 1.9 mg/dl Total Bilirubin 0.4 mg/dl Direct Bilirubin 0.2 mg/dl Aspartate Amino Transf (AST/SGOT) 59 U/L Alanine Aminotransferase (ALT/SGPT) 57 U/L Alkaline Phosphatase 217 U/L Total Protein 4.8 gm/dl Albumin 1.4 gm/dl Procalcitonin 2.52 ng/ml Test 09/29/16 10:15 09/29/16 12:39 Activated Partial Thromboplast Time 66.0 SECONDS Partial Thromboplastin Ratio 2.5 Heparin Anti-Xa Act, Low Molec Wt 0.48 IU/ML Bedside Glucose 136 mg/dl Assessment & Plan Metastatic widespread colon carcinoma. The patient and her sister are insistent on further systemic therapy. I have stressed and emphasized clearly that further systemic therapy will not be helpful but again they insist on continuing Opdivo since she is only had one dose. With that then she'll be placed on the scheduled to resume this therapy provided that she is able next week. In regards to the IVC thrombus that is seen on CT scans, perhaps another way to approach this rather than continued Lovenox would be to place an IVC filter. I believe that would be a very warranted procedure at this juncture. We will arrange for a follow-up in our clinic.
[2016-09-29] MEDS: MoRPHine SULFATE 2 MG/ML CARP IV PRN (19:41)
[2016-09-29] MEDS: FENTANYL 25 MCG/HR TDSY TD SCH (21:23)
[2016-09-29] MEDS: ENOXAPARIN SQ SCH (21:24)
[2016-09-29] MEDS: CHECK FENTANYL PATCH PLACEMENT SCH (23:50)
[2016-09-30] VITALS (9 sets, daily range): BP systolic 88–129; BP diastolic 61–84; PULSE 69–112; TEMP 36.5–36.8; O2SAT 84–99
[2016-09-30] MEDS: MoRPHine SULFATE 2 MG/ML CARP IV PRN ×5 (00:01→20:25)
[2016-09-30] MEDS: PIPERACILL/TAZOBAC IV 3.375 GM in DEXTROSE 5% 100ML 100 ML IV SCH ×3 (02:05→20:24)
[2016-09-30] MEDS: LIDOCAINE HCL 2% VISCOUS SOLN 60 ML, DiphenhydrAMINE HCL SYRUP 150 MG, ALUMINUM/MAGNESI... MT SCH ×24 (04:05→23:49)
--- NOTE | 2016-09-30 07:11 | DIAGNOSTIC IMAGING REPORT ---
CHEST ONE VIEW PORTABLE CLINICAL HISTORY: sepsis dyspnea COMPARISON STUDY: 09/29/2016 FINDINGS: Right basilar chest tube drain is again noted. Aeration of both hemithoraces is similar. Diffuse metastatic change with diffuse bilateral infiltrative changes similar. Central catheter remains in superior vena cava. No evidence pneumothorax. IMPRESSION: Unchanged chest exam. No evidence pneumothorax. Right basal pleural drain unchanged Electronically signed by: Sree Plasencia M.D. 09/30/2016 7:10 AM Dictated Date/Time: 09/30/2016 7:09 AM
[2016-09-30] MEDS: CHECK FENTANYL PATCH PLACEMENT SCH ×3 (08:26→23:50)
[2016-09-30] MEDS: PANTOprazole SOD 40 MG TAB PO SCH (08:26)
[2016-09-30] MEDS: METHYLPREDNISOLONE IV 40 MG in SYRINGE 0 ML IV SCH ×2 (08:26→20:28)
[2016-09-30 08:27] LABS: MEAN CORPUSCULAR HGB CONC 33.1 g/dl (32-36)
[2016-09-30 08:34] LABS: HEMATOCRIT 44.1 % (37-47); MEAN CELL VOLUME 76.2 fL (80-100); MEAN CORPUSCULAR HEMOGLOBIN 25.2 pg (25-34); RED BLOOD COUNT 5.79 M/uL (4.2-5.4); WHITE BLOOD COUNT 25.57 K/uL (4.8-10.8)
[2016-09-30 08:45] LABS: PARTIAL THROMBOPLASTIN RATIO 1.3
[2016-09-30 08:55] LABS: ANISOCYTOSIS PRESENT; BASO % 0.1 %; BASO ABS # 0.03 K/uL (0-0.2); COMPLETE YES; ECHINOCYTES 1+; IG% 1.1 %; LYMPH % 2.2 %; LYMPH ABS # 0.55 K/uL (1.2-3.4); MONO % 2.1 %; NEUT % 94.5 %; PLATELET COUNT 153 K/uL (130-400); PLT ESTIMATE DECREASED
[2016-09-30 09:09] LABS: BUN/CREATININE RATIO 26.9 (10-20); MAGNESIUM 2.1 mg/dl (1.8-2.4); POTASSIUM 4.1 mmol/L (3.5-5.1)
[2016-09-30 09:11] LABS: CALCIUM 9.9 mg/dl (8.5-10.1)
[2016-09-30 09:12] LABS: PHOSPHORUS 2.8 mg/dl (2.5-4.9)
[2016-09-30] MEDS: VANCOMYCIN INJ 700 MG in SODIUM CHLORIDE 0.9% 250ML 250 ML IV SCH (09:53)
[2016-09-30] MEDS: ENOXAPARIN SQ SCH ×2 (09:54→20:28)
[2016-09-30] MEDS ORDERED: LEVALBUTEROL/IPRATROPIUM NEB INH PRN (10:45)
[2016-09-30] MEDS ORDERED: NURSING VERBAL MED ORDER ONE ×2 (11:30→15:00)
--- NOTE | 2016-09-30 11:31 | Pulmonology Progress Note ---
Pulmonary Progress Note Date of Service September 30, 2016. Attending Dr. Soto Subjective Patient still notably short of breath requiring high flow oxygen delivery system but much improved status post IPC Objective Patient is on high flow oxygen system using accessory muscles of breathing intermittently tachypnea with conversation but much improved and her pulmonary function Vital signs: Patient notably hypoxic on normal nasal cannula requiring high flow system Respiratory: Bilateral rhonchi appreciated at the bases Cardiac: S1-S2 tachycardic Abdomen: Soft positive bowel sounds Chest x-ray: Notable reexpansion of the hemithorax minimal pleural effusion Assessment & Plan 71-year-old female with malignant right-sided pleural effusion: #1 pleural effusion: IPC catheter is been placed with good resolution of her pleural effusion as well as helped in her overall dyspnea. At this time I will continue to monitor. But I will be signing off the service please consult if any issues arise. Data Medications: Current Inpatient Medications Medications (Trade) Dose Ordered Sig/Sarahi Route Start Time Stop Time Status Last Admin Dose Admin Ioversol (Optiray 320) 125 ml UD PRN IV 09/28/16 10:30 10/02/16 10:29 Acetaminophen (Tylenol Tab) 650 mg Q4H PRN PO 09/28/16 13:15 10/28/16 13:14 Lorazepam (Ativan Tab) 0.5 mg Q4H PRN PO 09/28/16 13:15 10/28/16 13:14 Morphine Sulfate (MoRPHine SULFATE INJ) 2 mg Q2H PRN IV 09/28/16 13:15 10/12/16 13:14 09/30/16 00:01 2 MG Vancomycin HCl 1 ea 1 ea UD N/A 09/28/16 15:29 10/28/16 15:28 Levofloxacin 750 mg/Prmx 150 ml @ 100 mls/hr Q48H IV 09/30/16 12:00 10/07/16 11:59 Vancomycin HCl 700 mg/Sodium Chloride 264 ml @ 125 mls/hr Q24H IV 09/29/16 10:00 10/06/16 09:59 09/30/16 09:53 125 MLS/HR Piperacillin Sod/ Tazobactam Sod/ Dextrose 115 ml @ 28.75 mls/ hr Q8H IV 09/28/16 18:00 10/05/16 17:59 09/30/16 09:54 28.75 MLS/HR Lidocaine HCl/ Diphenhydramine HCl/Al Hydroxide/ Mg Hydroxide/ Glycerin/Barcode (VISCOUS LIDOCAINE 2% Soln/ Benadryl Syrup/ Maalox Susp/ Glycerin Anhydrous Soln) Q4 MT 09/28/16 16:00 10/28/16 15:59 09/30/16 08:26 10 ML Piperacillin Sod/ Tazobactam Sod (Consult) 1 ea UD N/A 09/28/16 15:30 10/28/16 15:29 Levofloxacin (Consult) 1 ea UD N/A 09/28/16 15:45 10/28/16 15:44 Heparin Sodium (Porcine) 5 ml 5 ml PRN PRN IV 09/29/16 03:45 10/29/16 03:44 09/30/16 08:16 5 ML Methylprednisolone Sodium Succinate/ Syringe (Solu-Medrol IV/ Syringe) 0.64 ml @ 1.5 mls/min BID IV 09/29/16 10:00 10/29/16 09:59 09/30/16 08:26 1.5 MLS/MIN Pantoprazole Sodium 40 mg 40 mg QAM PO 09/30/16 09:00 10/30/16 08:59 09/30/16 08:26 40 MG Enoxaparin Sodium/ Syringe (Lovenox Inj/ Syringe) 0.36 ml @ 0 mls/sec Q12H SQ 09/29/16 22:00 10/29/16 21:59 09/30/16 09:54 0.36 MLS/SEC Fentanyl (Duragesic Patch) 25 mcg Q72H TD 09/29/16 21:00 10/13/16 20:59 09/29/16 21:23 25 MCG Miscellaneous (Fentanyl Patch Remove & Waste) 1 ea Q3D@2059 N/A 10/02/16 20:59 11/01/16 20:58 Miscellaneous Information (Check Fentanyl Patch Placement) 1 ea QS N/A 09/30/16 00:00 10/30/16 00:00 09/30/16 08:26 1 EA Ipratropium [place] (Atrovent 0.02% 0.5MG/2.5ML Neb) 0.5 mg Q6R INH 09/30/16 15:00 10/30/16 14:59 Levalbuterol (Xopenex 1.25MG/ 0.5ML Neb) 1.25 mg Q6R INH 09/30/16 15:00 10/30/16 14:59 Miscellaneous Information 1 ea 1 ea ONE ONCE N/A 09/30/16 11:30 09/30/16 11:31 UNV Vancomycin HCl/ Sodium Chloride (Vancomycin Inj/ Nss 250ml) 264 ml @ 125 mls/hr Q48H IV 10/02/16 10:00 10/09/16 09:59 I & O: 24-Hour Column 09/30/16 07:59 Intake Total 2587 ml Output Total 625 ml Balance 1962 ml Vital Signs: Date Time Temp Pulse Resp B/P Pulse Ox O2 Delivery O2 Flow Rate FiO2 09/30/16 08:30 90 High Flow Oxygen 35.0 70 09/30/16 08:00 Nasal Cannula 4.0 09/30/16 07:54 36.8 101 16 120/84 84 4.0 09/30/16 04:00 Nasal Cannula 4.0 09/30/16 04:00 36.6 90 20 116/83 91 Nasal Cannula 4.0 09/30/16 00:05 36.5 107 18 112/75 91 09/30/16 00:01 Nasal Cannula 4.0 09/29/16 20:00 Ambu-Bag 4.0 09/29/16 19:29 36.3 114 20 106/79 90 Nasal Cannula 4.0 09/29/16 17:30 36.4 114 22 92 4.0 09/29/16 17:00 114 20 114/87 92 Nasal Cannula 4.0 09/29/16 16:00 97 Nasal Cannula 4.0 09/29/16 16:00 36.4 112 21 94/65 92 Nasal Cannula 4.0 09/29/16 14:03 36.6 115 22 101/75 91 Nasal Cannula 6.0 09/29/16 12:00 112 20 101/78 92 Nasal Cannula 6.0 09/29/16 12:00 Nasal Cannula 6.0 Laboratory Results: Last 24 Hours Test 09/29/16 12:39 09/30/16 08:15 09/30/16 10:25 Bedside Glucose 136 mg/dl White Blood Count 25.57 K/uL Red Blood Count 5.79 M/uL Hemoglobin 14.6 g/dL Hematocrit 44.1 % Mean Corpuscular Volume 76.2 fL Mean Corpuscular Hemoglobin 25.2 pg Mean Corpuscular Hemoglobin Concent 33.1 g/dl Platelet Count 153 K/uL Neutrophils (%) (Auto) 94.5 % Lymphocytes (%) (Auto) 2.2 % Monocytes (%) (Auto) 2.1 % Eosinophils (%) (Auto) 0.0 % Basophils (%) (Auto) 0.1 % Neutrophils # (Auto) 24.18 K/uL Lymphocytes # (Auto) 0.55 K/uL Monocytes # (Auto) 0.54 K/uL Eosinophils # (Auto) 0.00 K/uL Basophils # (Auto) 0.03 K/uL RDW Standard Deviation 55.6 fL RDW Coefficient of Variation 20.0 % Immature Granulocyte % (Auto) 1.1 % Immature Granulocyte # (Auto) 0.27 K/uL Platelet Estimate DECREASED Anisocytosis PRESENT Echinocytes 1+ Activated Partial Thromboplast Time 35.0 SECONDS Partial Thromboplastin Ratio 1.3 Sodium Level 137 mmol/L Potassium Level 4.1 mmol/L Chloride Level 104 mmol/L Carbon Dioxide Level 22 mmol/L Anion Gap 11.0 mmol/L Blood Urea Nitrogen 27 mg/dl Creatinine 1.00 mg/dl Est Creatinine Clear Calc Drug Dose 36.2 ml/min Estimated GFR () 66.6 Estimated GFR (Non- 57.4 BUN/Creatinine Ratio 26.9 Random Glucose 114 mg/dl Lactic Acid Level 3.4 mmol/L Calcium Level 9.9 mg/dl Phosphorus Level 2.8 mg/dl Magnesium Level 2.1 mg/dl Total Bilirubin 0.5 mg/dl Direct Bilirubin 0.2 mg/dl Aspartate Amino Transf (AST/SGOT) 40 U/L Alanine Aminotransferase (ALT/SGPT) 52 U/L Alkaline Phosphatase 343 U/L Total Protein 5.5 gm/dl Albumin 1.5 gm/dl Procalcitonin 1.72 ng/ml Vancomycin Level Trough 25.8 mcg/ml
--- NOTE | 2016-09-30 11:44 | Pharmacy Progress Note ---
Pharmacy Abx Dose Progress Nt Date of Service September 30, 2016. Pharmacy Dosing Scope The patient is currently receiving the following antimicrobial agents per Pharmacy consult: * VANCOMYCIN 700 mg IV/PO every 24 hours * LEVOFLOXACIN 750 mg IV Q 48 hours * ZOSYN 3.375 grams IV (over 4 hours) Q 8 hours Objective Height (Feet): 5 Height (Inches): 0.00 Weight (Kilograms): 43.200 Vital Signs (Past 12Hrs) Vital Signs Past 12 Hours Date Time Temp Pulse Resp B/P Pulse Ox O2 Delivery O2 Flow Rate FiO2 09/30/16 08:30 90 High Flow Oxygen 35.0 70 09/30/16 08:00 Nasal Cannula 4.0 09/30/16 07:54 36.8 101 16 120/84 84 4.0 09/30/16 04:00 Nasal Cannula 4.0 09/30/16 04:00 36.6 90 20 116/83 91 Nasal Cannula 4.0 09/30/16 00:05 36.5 107 18 112/75 91 09/30/16 00:01 Nasal Cannula 4.0 Lab Results (24Hrs) Test 09/29/16 12:39 09/30/16 08:15 09/30/16 10:25 Bedside Glucose 136 mg/dl (70-90) White Blood Count 25.57 K/uL (4.8-10.8) Red Blood Count 5.79 M/uL (4.2-5.4) Hemoglobin 14.6 g/dL (12.0-16.0) Hematocrit 44.1 % (37-47) Mean Corpuscular Volume 76.2 fL (80-100) Mean Corpuscular Hemoglobin 25.2 pg (25-34) Mean Corpuscular Hemoglobin Concent 33.1 g/dl (32-36) Platelet Count 153 K/uL (130-400) Neutrophils (%) (Auto) 94.5 % Lymphocytes (%) (Auto) 2.2 % Monocytes (%) (Auto) 2.1 % Eosinophils (%) (Auto) 0.0 % Basophils (%) (Auto) 0.1 % Neutrophils # (Auto) 24.18 K/uL (1.4-6.5) Lymphocytes # (Auto) 0.55 K/uL (1.2-3.4) Monocytes # (Auto) 0.54 K/uL (0.11-0.59) Eosinophils # (Auto) 0.00 K/uL (0-0.5) Basophils # (Auto) 0.03 K/uL (0-0.2) RDW Standard Deviation 55.6 fL (36.4-46.3) RDW Coefficient of Variation 20.0 % (11.5-14.5) Immature Granulocyte % (Auto) 1.1 % Immature Granulocyte # (Auto) 0.27 K/uL (0.00-0.02) Platelet Estimate DECREASED Anisocytosis PRESENT Echinocytes 1+ Activated Partial Thromboplast Time 35.0 SECONDS (21.0-31.0) Partial Thromboplastin Ratio 1.3 Sodium Level 137 mmol/L (136-145) Potassium Level 4.1 mmol/L (3.5-5.1) Chloride Level 104 mmol/L (98-107) Carbon Dioxide Level 22 mmol/L (21-32) Anion Gap 11.0 mmol/L (3-11) Blood Urea Nitrogen 27 mg/dl (7-18) Creatinine 1.00 mg/dl (0.60-1.20) Est Creatinine Clear Calc Drug Dose 36.2 ml/min Estimated GFR () 66.6 Estimated GFR (Non- 57.4 BUN/Creatinine Ratio 26.9 (10-20) Random Glucose 114 mg/dl (70-99) Lactic Acid Level 3.4 mmol/L (0.4-2.0) Calcium Level 9.9 mg/dl (8.5-10.1) Phosphorus Level 2.8 mg/dl (2.5-4.9) Magnesium Level 2.1 mg/dl (1.8-2.4) Total Bilirubin 0.5 mg/dl (0.2-1) Direct Bilirubin 0.2 mg/dl (0-0.2) Aspartate Amino Transf (AST/SGOT) 40 U/L (15-37) Alanine Aminotransferase (ALT/SGPT) 52 U/L (12-78) Alkaline Phosphatase 343 U/L (45-117) Total Protein 5.5 gm/dl (6.4-8.2) Albumin 1.5 gm/dl (3.4-5.0) Procalcitonin 1.72 ng/ml (0-0.5) Vancomycin Level Trough 25.8 mcg/ml (SEE COMMENT) Micro Results Date/Time Source Procedure Growth Status 09/28/16 11:25 Blood Blood Culture - Preliminary NO GROWTH TO DATE. Resulted 09/28/16 10:40 Blood Blood Culture - Preliminary NO GROWTH TO DATE. Resulted 09/28/16 00:00 Nasal MRSA DNA Surveillance Screen - Final Specimen Negative for MRSA by DNA Probe Complete 09/29/16 11:55 Urine,Catheterized Urine Culture Pending Received 09/28/16 00:00 Pleural Fluid (Thoracentesis) Right Gram Stain - Final Resulted 09/28/16 00:00 Pleural Fluid (Thoracentesis) Right Bacterial Culture - Preliminary NO GROWTH TO DATE. Resulted 09/28/16 00:00 Pleural Fluid (Thoracentesis) Right Acid Fast Stain - Final Resulted 09/28/16 00:00 Pleural Fluid (Thoracentesis) Right Mycobacterial Culture Pending Resulted Risk Factors for Resistance * Immunocompromised (chronic steroid therapy, chemotherapy) Assessment & Plan Assessment * 71 year old female presenting to the ER w/ 3-4 days h/o increasing weakness and SOB. Patient dx w/ sepsis, pulmonary source likely. Broad spectrum ABX therapy initiated in ED (Vanco + Zosyn + Levofloxacin) and has been continued on admission * Today is day # 3 broad spectrum ABX therapy * WBC 25.6, Neut # 24.4 (patient is receiving IV Solu-Medrol), remains afebrile , procalcitonin down to 1.72 today (prior two readings 1.35 on 09/28, and 2.25 on 09/29) * HR > 90 (currently 90-110) RR 16-22, O2 Sat dropped on 4L NC so bag on HiFlow FiO2 70%, BP currently stable * Nothing growing in cx's at this time * MRSA nares negative; likelihood of a MRSA PNX is very low at this point. Would suggest d/c vancomycin if only suspected source of infxn is PNX. Levofloxacin + Zosyn will offer good coverage of Strep pn and MSSA. * SCr still elevated above baseline (baseline ~0.65-0.75, currently 1.0), U.O. has been low ~425mL output yesterday (~0.4ml/kg/hr) Plan Vancomycin IV * Trough level of 25.8 mcg/mL is supratherapeutic. Prior doses were hung at correct times. Level was drawn at appropriate time. This level was drawn prior to steady-state. Likely this level would reach ~28-30 with continued dosing. * Change to 700 mg (16mg/kg) IV every 48 hours * Goal trough level for pulmonary infxn : 15 to 20 mcg/mL * Trough level ordered for: 10/02/16 Piperacillin/tazobactam * Continue 3.375 g IV extended infusion every 8 hours for CrCl greater than 20 mL/min Levofloxacin * Continue 750mg IV Q 48 hrs for eCrCl 20-49cc/min Pharmacy will continue to follow and will adjust dose/frequency as necessary. Thank you.
[2016-09-30] MEDS: IPRATROPIUM BROMIDE NEB SOLN 0.02% 2.5 ML VIAL INH SCH ×2 (11:45→19:30)
[2016-09-30] MEDS: LEVALBUTEROL 1.25MG/0.5ML NEB INH SCH ×2 (11:45→19:31)
[2016-09-30] MEDS: LEVOFLOXACIN / D5W 750 MG in PREMIXED IN D5W 150 ML IV SCH (11:59)
[2016-09-30] MEDS: SODIUM CHLORIDE 0.9% 1000ML 1,000 ML IV SCH (11:59)
--- NOTE | 2016-09-30 12:24 | Progress Note ---
Subjective Date of Service: September 30, 2016. Subjective Pt evaluation today including: conversation w/ patient, physical exam, chart review, lab review, review of studies, conversation w/ technology methodology consultant, review of inpatient medication list Need to put it back on high flow oxygen today because of hypoxic Nurse reported has decreased urine output since last night Urine output about 10 mL per hour in last 5 hour bladder scanning has no residual Was eating breakfast about 20% no fever, generally condition and the same as yesterday Problem List Medical Problems: (1) Pneumonia Status: Acute (2) Sepsis Status: Acute Review of Systems Constitutional: + fatigue, + weakness, No chills, No fever, No problem reported , No sweats, No weight loss Eyes: No diplopia, No discharge, No eye pain, No redness, No worsening of vision ENT: No dental problems, No hearing loss, No nasal symptoms, No sore throat, No tinnitus, No trouble swallowing, No unusual epistaxis Respiratory: + cough, + shortness of breath, No dyspnea at rest, No dyspnea on exertion, No hemoptysis, No sputum, No wheezing Cardiac: No PND, No chest pain, No claudication, No edema, No orthopnea, No palpitations Abdomen: No constipation, No diarrhea, No nausea, No pain, No vomiting Musculoskeletal: No calf pain, No joint pain, No muscle pain, No swelling Female : No abnormal vaginal bleeding, No dysuria, No hematuria, No incontinence, No urinary frequency, No vaginal discharge Neurologic: No balance problems, No memory loss, No numbness/tingling, No paralysis, No vertigo, No weakness Psychiatric: No anhedonism, No anxiety, No depression symptoms, No insomnia, No substance abuse Heme: No abnormal bleeding/bruising, No clotting problems, No night sweats, No swollen lymph nodes Endo: No excessive thirst, No excessive urination, No fatigue Skin: No bleeding, No color change, No itch, No new/changing skin lesions, No rash Objective Vital Signs Date Time Temp Pulse Resp B/P Pulse Ox O2 Delivery O2 Flow Rate FiO2 09/30/16 12:07 36.7 69 18 129/61 99 09/30/16 08:30 90 High Flow Oxygen 35.0 70 09/30/16 08:00 Nasal Cannula 4.0 09/30/16 07:54 36.8 101 16 120/84 84 4.0 09/30/16 04:00 Nasal Cannula 4.0 09/30/16 04:00 36.6 90 20 116/83 91 Nasal Cannula 4.0 09/30/16 00:05 36.5 107 18 112/75 91 09/30/16 00:01 Nasal Cannula 4.0 09/29/16 20:00 Ambu-Bag 4.0 09/29/16 19:29 36.3 114 20 106/79 90 Nasal Cannula 4.0 09/29/16 17:30 36.4 114 22 92 4.0 09/29/16 17:00 114 20 114/87 92 Nasal Cannula 4.0 09/29/16 16:00 97 Nasal Cannula 4.0 09/29/16 16:00 36.4 112 21 94/65 92 Nasal Cannula 4.0 09/29/16 14:03 36.6 115 22 101/75 91 Nasal Cannula 6.0 Physical Exam General Appearance: WD/WN, no apparent distress, + thin, + pertinent finding ( frail, conversational, answer questions, generally looking the same as yesterday ) Eyes: normal inspection, PERRL, EOMI, sclerae normal ENT: normal ENT inspection, hearing grossly normal, pharynx normal Neck: supple, no adenopathy, thyroid normal, no JVD, no carotid bruits, trachea midline Respiratory/Chest: chest non-tender, normal breath sounds, no respiratory distress, no accessory muscle use, + rales, + pertinent finding (left IPC cath in place) Cardiovascular: regular rate, rhythm, no edema, no gallop, no JVD, no murmur Abdomen: normal bowel sounds, non tender, soft, no organomegaly, no pulsatile mass Extremities: normal range of motion, non-tender, normal inspection, no pedal edema, no calf tenderness, normal capillary refill, pelvis stable Neurologic/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, no motor/sensory deficits, alert, normal mood/affect, oriented x 3 Skin: normal color, warm/dry, no rash Lymphatic: no adenopathy Laboratory Results Last 24 Hours Test 09/29/16 12:39 09/30/16 08:15 09/30/16 10:25 Bedside Glucose 136 mg/dl White Blood Count 25.57 K/uL Red Blood Count 5.79 M/uL Hemoglobin 14.6 g/dL Hematocrit 44.1 % Mean Corpuscular Volume 76.2 fL Mean Corpuscular Hemoglobin 25.2 pg Mean Corpuscular Hemoglobin Concent 33.1 g/dl Platelet Count 153 K/uL Neutrophils (%) (Auto) 94.5 % Lymphocytes (%) (Auto) 2.2 % Monocytes (%) (Auto) 2.1 % Eosinophils (%) (Auto) 0.0 % Basophils (%) (Auto) 0.1 % Neutrophils # (Auto) 24.18 K/uL Lymphocytes # (Auto) 0.55 K/uL Monocytes # (Auto) 0.54 K/uL Eosinophils # (Auto) 0.00 K/uL Basophils # (Auto) 0.03 K/uL RDW Standard Deviation 55.6 fL RDW Coefficient of Variation 20.0 % Immature Granulocyte % (Auto) 1.1 % Immature Granulocyte # (Auto) 0.27 K/uL Platelet Estimate DECREASED Anisocytosis PRESENT Echinocytes 1+ Activated Partial Thromboplast Time 35.0 SECONDS Partial Thromboplastin Ratio 1.3 Sodium Level 137 mmol/L Potassium Level 4.1 mmol/L Chloride Level 104 mmol/L Carbon Dioxide Level 22 mmol/L Anion Gap 11.0 mmol/L Blood Urea Nitrogen 27 mg/dl Creatinine 1.00 mg/dl Est Creatinine Clear Calc Drug Dose 36.2 ml/min Estimated GFR () 66.6 Estimated GFR (Non- 57.4 BUN/Creatinine Ratio 26.9 Random Glucose 114 mg/dl Lactic Acid Level 3.4 mmol/L Calcium Level 9.9 mg/dl Phosphorus Level 2.8 mg/dl Magnesium Level 2.1 mg/dl Total Bilirubin 0.5 mg/dl Direct Bilirubin 0.2 mg/dl Aspartate Amino Transf (AST/SGOT) 40 U/L Alanine Aminotransferase (ALT/SGPT) 52 U/L Alkaline Phosphatase 343 U/L Total Protein 5.5 gm/dl Albumin 1.5 gm/dl Procalcitonin 1.72 ng/ml Vancomycin Level Trough 25.8 mcg/ml Assessment and Plan 71-year-old white female admitted on 09/28/2016 to ICU because of sepsis pneumonia and acute respirator failure Sepsis, possible pna with Ground glass opacity present on imaging of lung, or Pneumonitis: Remains related to stable Today has worsening leukocytosis possible from Solu-Medrol, mild elevated lactase level, we'll follow-up Acute respiratory failure with hypoxia, requiring higher level of oxygen again today, possible getting worse 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, s/p IPC catheter on 09/28/2016, has good draiange - Pleural Protein/Serum Protein ratio > 0.5; suggests exudate; consistent with pulmonary infection or malignancy Adenocarcinoma of sigmoid colon Metastatic disease Myocardial demand ischemia with Elevated troponin Acute kidney failure Protein-calorie malnutrition 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 Severe protein-calorie malnutrition was on cpap, now is on nasal cannula preferably, goal saturation > 92% Acute Kidney Injury: Resolving 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 Marinelli has discussed terminal prognosis IVC Thrombosis Mild thrombocytopenia need to follow up - Started on Heparin infusion yesterday, now is Lovenox 0.85mg/kg per recs of representative phlebotomy services, Continue antibiotics follow-up infectious disease and pulmonology input Mild leukocytosis possible from Solu-Medrol Decreased urine output, will give gentle IV fluid - DVT Prophylaxis: Transition to Lovenox CODE STATUS - Do not resuscitate - plalliative care saw pt , per pt's wishes, if/when decompensation/decline occurs: no escalation of care including compressions, central line, or intubation and allow natural . Patient wishes to be made comfortable if/ when she gets to that point. Has morphine 2mg IV prn ordered for pain, would encourage use for air hunger as well. DISPOSITION - OT/PT: Ordered - Patient does not require hemodynamic support; respiratory support she is currently receiving can be done on medical floor. Stable for transfer today. Continued [facility] stay due to: multiple IV medications needed Discharge planning: uncertain
--- NOTE | 2016-09-30 13:50 | Medical Consult ---
Consultation Date of Consultation: September 30, 2016. Attending Physician: Kobe Luz MD, PhD Reason for Consultation: Elevated lactic acid, increased WBC History of Present Illness 71-year-old female with known metastatic adenocarcinoma of the colon, 1st diagnosed in 2013, subsequently requiring colon resection for obstruction, who has been on intermittent chemotherapy since then. She has developed progression of her metastatic disease, and was recently changed to alternative chemotherapy regimen. She was now admitted with 3-4 days of progressively worsening shortness of breath. Chest x-ray and CT scan of the chest, read by me , showed large right pleural effusion, progressive metastatic disease, and ground-glass infiltrate in the right upper lobe. She has had pleural catheter placed, with finding of exudative pleural effusion, with negative cultures, and cytology pending. She has been started empirically on IV vancomycin, Zosyn, and levofloxacin, and has had some clinical improvement since admission. She denies any significant fever. She has had significant leukocytosis and elevation of lactic acid, but blood cultures have been negative. CT scan of the abdomen shows extensive adenopathy, likely pathologic, with evidence of necrosis in some of the lymph nodes. 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 (4) Metastatic disease (5) Protein-calorie malnutrition (6) Sepsis (7) SOB (shortness of breath) (8) s/p colectomy Family History Cancer Social History Smoking Status: Former Smoker Alcohol Use: none Drug Use: none Marital Status: single Housing Status: lives with family Occupation Status: unemployed Allergies Coded Allergies: No Known Allergies (Unverified , 03/05/15) Current Inpatient Medications Current Inpatient Medications Medications (Trade) Dose Ordered Sig/Sarahi Route Start Time Stop Time Status Last Admin Dose Admin Ioversol (Optiray 320) 125 ml UD PRN IV 09/28/16 10:30 10/02/16 10:29 Acetaminophen (Tylenol Tab) 650 mg Q4H PRN PO 09/28/16 13:15 10/28/16 13:14 Lorazepam (Ativan Tab) 0.5 mg Q4H PRN PO 09/28/16 13:15 10/28/16 13:14 Morphine Sulfate (MoRPHine SULFATE INJ) 2 mg Q2H PRN IV 09/28/16 13:15 10/12/16 13:14 09/30/16 12:01 2 MG Vancomycin HCl 1 ea 1 ea UD N/A 09/28/16 15:29 10/28/16 15:28 Levofloxacin 750 mg/Prmx 150 ml @ 100 mls/hr Q48H IV 09/30/16 12:00 10/07/16 11:59 09/30/16 11:59 100 MLS/HR Piperacillin Sod/ Tazobactam Sod/ Dextrose 115 ml @ 28.75 mls/ hr Q8H IV 09/28/16 18:00 10/05/16 17:59 09/30/16 09:54 28.75 MLS/HR Lidocaine HCl/ Diphenhydramine HCl/Al Hydroxide/ Mg Hydroxide/ Glycerin/Barcode (VISCOUS LIDOCAINE 2% Soln/ Benadryl Syrup/ Maalox Susp/ Glycerin Anhydrous Soln) Q4 MT 09/28/16 16:00 10/28/16 15:59 09/30/16 11:59 10 ML Piperacillin Sod/ Tazobactam Sod (Consult) 1 ea UD N/A 09/28/16 15:30 10/28/16 15:29 Levofloxacin (Consult) 1 ea UD N/A 09/28/16 15:45 10/28/16 15:44 Heparin Sodium (Porcine) 5 ml 5 ml PRN PRN IV 09/29/16 03:45 10/29/16 03:44 09/30/16 08:16 5 ML Methylprednisolone Sodium Succinate/ Syringe (Solu-Medrol IV/ Syringe) 0.64 ml @ 1.5 mls/min BID IV 09/29/16 10:00 10/29/16 09:59 09/30/16 08:26 1.5 MLS/MIN Pantoprazole Sodium 40 mg 40 mg QAM PO 09/30/16 09:00 10/30/16 08:59 09/30/16 08:26 40 MG Enoxaparin Sodium/ Syringe (Lovenox Inj/ Syringe) 0.36 ml @ 0 mls/sec Q12H SQ 09/29/16 22:00 10/29/16 21:59 09/30/16 09:54 0.36 MLS/SEC Fentanyl (Duragesic Patch) 25 mcg Q72H TD 09/29/16 21:00 10/13/16 20:59 09/29/16 21:23 25 MCG Miscellaneous (Fentanyl Patch Remove & Waste) 1 ea Q3D@2059 N/A 10/02/16 20:59 11/01/16 20:58 Miscellaneous Information (Check Fentanyl Patch Placement) 1 ea QS N/A 09/30/16 00:00 10/30/16 00:00 09/30/16 08:26 1 EA Ipratropium [place] (Atrovent 0.02% 0.5MG/2.5ML Neb) 0.5 mg Q6R INH 09/30/16 15:00 10/30/16 14:59 Levalbuterol 1.25 mg 1.25 mg Q6R INH 09/30/16 15:00 10/30/16 14:59 Vancomycin HCl 700 mg/Sodium Chloride 264 ml @ 125 mls/hr Q48H IV 10/02/16 10:00 10/06/16 09:59 Sodium Chloride (Nss 1000ml) 1,000 ml @ 80 mls/hr [id number] IV 09/30/16 12:00 10/30/16 11:59 09/30/16 11:59 80 MLS/HR Review of Systems Constitutional: + fatigue, + weakness, No chills, No fever Eyes: No problem reported ENT: No problem reported Respiratory: + dyspnea on exertion, + shortness of breath, No hemoptysis Cardiovascular: No problem reported Abdomen: + pain, No diarrhea, No vomiting Musculoskeletal: No problem reported Genitourinary - Female: No problem reported Neurologic: No problem reported Psychiatric: No problem reported Endocrine: No problem reported Hematologic / Lymphatic: No problem reported Integumentary: No problem reported (skin teat LLE) Allergic / Immunologic: No problem reported Physical Exam Date Time Temp Pulse Resp B/P Pulse Ox O2 Delivery O2 Flow Rate FiO2 09/30/16 12:07 36.7 69 18 129/61 99 09/30/16 12:00 Nasal Cannula 4.0 09/30/16 08:30 90 High Flow Oxygen 35.0 70 09/30/16 08:00 Nasal Cannula 4.0 09/30/16 07:54 36.8 101 16 120/84 84 4.0 09/30/16 04:00 Nasal Cannula 4.0 09/30/16 04:00 36.6 90 20 116/83 91 Nasal Cannula 4.0 09/30/16 00:05 36.5 107 18 112/75 91 09/30/16 00:01 Nasal Cannula 4.0 09/29/16 20:00 Ambu-Bag 4.0 09/29/16 19:29 36.3 114 20 106/79 90 Nasal Cannula 4.0 09/29/16 17:30 36.4 114 22 92 4.0 09/29/16 17:00 114 20 114/87 92 Nasal Cannula 4.0 09/29/16 16:00 97 Nasal Cannula 4.0 09/29/16 16:00 36.4 112 21 94/65 92 Nasal Cannula 4.0 09/29/16 14:03 36.6 115 22 101/75 91 Nasal Cannula 6.0 General Appearance: WD/WN, + mild distress Head: normocephalic, atraumatic Eyes: normal inspection, EOMI, sclerae normal ENT: normal ENT inspection, hearing grossly normal, pharynx normal Neck: supple, no adenopathy, thyroid normal, trachea midline Respiratory/Chest: chest non-tender, + decreased breath sounds (rght), + rhonchi Cardiovascular: regular rate, rhythm, no gallop, no murmur Abdomen/GI: normal bowel sounds, non tender, soft, no organomegaly, + pertinent finding (ostomy in place) Back: normal inspection, no CVA tenderness Extremities/Musculoskelatal: normal inspection, non-tender Neurologic/Psych: no motor/sensory deficits, alert, oriented x 3 Skin: normal color, warm/dry, no rash, + pertinent finding (skin tear left lower leg. Some surrounding erythema) Lymphatic: no adenopathy Laboratory Results RUN DATE: 09/30/16 [facility] PAGE 1 RUN TIME: 1127 Specimen Inquiry PATIENT: EVELYN BENNETT LOC: [facility] U # : [id number] AGE/SX: 71/F ROOM: E218 REG : 09/28/[address]: Kobe Luz MD, PhD : 1945 BED: 1 DIS : STATUS: ADM IN TLOC: SPEC #: [id number] DAVI: 09/28/16-UNK STATUS: RES REQ #: [id number] RECD: 09/28/16-[address]: [place] MD SOURCE: PLEURAL FL ENTR: 09/28/16-[address]: Akhil Bradley M.D. [facility] Vu Banks D.O. Stevens, Jessica A., DO Waddington, Thomas W., MD ORDERED: AER/TIERRA CULTSMR COMMENTS: Specimen Comment Tube #2 Has Specimen Been Obtained/Collected? Y Procedure Result Verified Site GRAM STAIN Final 09/29/16-716 RESULT MANY WBCs SEEN NO ORGANISMS SEEN OR AER/TIERRA CULT Preliminary 09/30/16 NO GROWTH TO DATE. Last 24 Hours Test 09/30/16 08:15 09/30/16 10:25 White Blood Count 25.57 K/uL Red Blood Count 5.79 M/uL Hemoglobin 14.6 g/dL Hematocrit 44.1 % Mean Corpuscular Volume 76.2 fL Mean Corpuscular Hemoglobin 25.2 pg Mean Corpuscular Hemoglobin Concent 33.1 g/dl Platelet Count 153 K/uL Neutrophils (%) (Auto) 94.5 % Lymphocytes (%) (Auto) 2.2 % Monocytes (%) (Auto) 2.1 % Eosinophils (%) (Auto) 0.0 % Basophils (%) (Auto) 0.1 % Neutrophils # (Auto) 24.18 K/uL Lymphocytes # (Auto) 0.55 K/uL Monocytes # (Auto) 0.54 K/uL Eosinophils # (Auto) 0.00 K/uL Basophils # (Auto) 0.03 K/uL RDW Standard Deviation 55.6 fL RDW Coefficient of Variation 20.0 % Immature Granulocyte % (Auto) 1.1 % Immature Granulocyte # (Auto) 0.27 K/uL Platelet Estimate DECREASED Anisocytosis PRESENT Echinocytes 1+ Activated Partial Thromboplast Time 35.0 SECONDS Partial Thromboplastin Ratio 1.3 Sodium Level 137 mmol/L Potassium Level 4.1 mmol/L Chloride Level 104 mmol/L Carbon Dioxide Level 22 mmol/L Anion Gap 11.0 mmol/L Blood Urea Nitrogen 27 mg/dl Creatinine 1.00 mg/dl Est Creatinine Clear Calc Drug Dose 36.2 ml/min Estimated GFR () 66.6 Estimated GFR (Non- 57.4 BUN/Creatinine Ratio 26.9 Random Glucose 114 mg/dl Lactic Acid Level 3.4 mmol/L Calcium Level 9.9 mg/dl Phosphorus Level 2.8 mg/dl Magnesium Level 2.1 mg/dl Total Bilirubin 0.5 mg/dl Direct Bilirubin 0.2 mg/dl Aspartate Amino Transf (AST/SGOT) 40 U/L Alanine Aminotransferase (ALT/SGPT) 52 U/L Alkaline Phosphatase 343 U/L Total Protein 5.5 gm/dl Albumin 1.5 gm/dl Procalcitonin 1.72 ng/ml Vancomycin Level Trough 25.8 mcg/ml Patient Name: EVELYN BENNETT Unit Number: [id number] Dictated: 09/28/161154 Transcribed: 09/28/161154 EV Printed Date/Time: [~ rep prt dt]/[~ rep prt tm] [~ rep ct labl] - [~ rep ct ivnm] [facility] [place] [address] Dictated: 09/28/161154 Transcribed: 09/28/161154 EV Printed Date/Time: [~ rep prt dt]/[~ rep prt tm] [~ rep ct labl] - [~ rep ct ivnm] CT ANGIOGRAM OF THE CHEST; CT SCAN OF THE ABDOMEN AND PELVIS WITH IV CONTRAST CLINICAL HISTORY: Generalized abdominal pain. Dyspnea. History of widespread metastatic colorectal carcinoma. COMPARISON STUDY: CT scan of the chest, abdomen, and pelvis dated 06/02/2016. Chest CT dated 03/20/2014. Abdominal CT dated 03/15/2014. PET/CT dated 09/07/2016. TECHNIQUE: Following the IV administration of 94 of Optiray 320, CT angiogram of the chest is performed from the upper abdomen to the thoracic inlet utilizing the pulmonary embolus protocol. Images reviewed in the axial, sagittal, coronal planes. 3-D MIPS images are created and assessed. CT scan of the abdomen and pelvis was then performed from the lung bases to the proximal femora. Images are reviewed in the axial, sagittal, and coronal planes. IV contrast was administered without complication. Automated dose control exposure was utilized. Examination is degraded by motion artifact, as well as by streak artifact from the arms which could not be elevated above the chest or abdomen. CT DOSE: 438.43 mGy.cm FINDINGS: CHEST: Thyroid: Atrophic. Thoracic aorta: There is atherosclerotic calcification of the thoracic aorta, which is normal in caliber and demonstrates standard 3-vessel arch anatomy. No dissection is seen. A right internal jugular central venous infusion port is in place. Pulmonary vasculature: The pulmonary trunk is normal in caliber. There are no filling defects identified in the main, lobar, or segmental pulmonary vessels to indicate pulmonary embolus. Heart: The heart is normal in size and configuration, and without pericardial effusion. There are scattered coronary artery calcifications. Lungs and pleural spaces: There is a large right pleural effusion with near-complete atelectasis of the right middle and lower lobes. The right upper lobe remains aerated. This has increased in size from 09/07/2016. There is a small pleural effusion on the left, new from previous. Diffuse/widespread pulmonary metastatic disease has not significant changed from 09/07/2016. There is a lesion at the left lung base measures 2.8 cm as seen on image #71. Groundglass consolidation is seen throughout the left lung. The trachea and central airways are clear. Mediastinum: Numerous mildly enlarged mediastinal lymph nodes are similar to previous. Kellee: Enlarged hilar lymph nodes are similar to previous and measure up to 11 mm short axis. Axillae: There is no axillary lymphadenopathy. Bony thorax: The skeletal structures are osteopenic. No lytic or blastic lesions are clearly identified. Note that skeletal metastases were visualized by PET. ABDOMEN AND PELVIS: Liver: The contrast-enhanced liver is normal in size, contour, and attenuation. There is no intrahepatic or ductal dilatation. The hepatic veins and portal veins are patent. Multifocal hepatic metastatic disease has not significantly changed from the 09/07/2016 pad examination. The largest lesion is seen in the right lobe on image #147 and measures 2.8 cm. Lesions are present within all hepatic segments. Gallbladder: Unremarkable. Spleen: Normal in size and attenuation. Pancreas: Atrophic and grossly unremarkable. Adrenal glands: There is a 7 mm low-attenuation left adrenal nodule. The right adrenal gland is unremarkable. Kidneys: There is markedly asymmetric cortical atrophy of the left kidney as compared to the right. There is left hydroureteronephrosis to the level of the essentially necrotic retroperitoneal lymphadenopathy. There is no right-sided hydronephrosis. There is diminished enhancement of the left kidney as compared to the right. The right kidney enhances homogeneously. There is a new 1.7 cm low-attenuation lesion in the upper pole the right kidney seen on image #167. Abdominal vasculature: The abdominal aorta is normal in course and caliber noting moderate to advanced atherosclerotic calcification end irregularity. Thrombus is identified within the inferior vena cava on image #241. Bowel: There are postoperative changes from partial colectomy with transverse colostomy. A mucous fistula is present. No bowel obstruction is seen. Moderate fecal retention is noted in the right colon. The appendix is well-visualized and normal. Peritoneum: There is trace abdominopelvic ascites. No intraperitoneal free air is seen. Small foci of peritoneal metastatic disease are similar to previous. A renewals representative nodule in the left upper quadrant seen on image #160 measures 9 mm. Lymphadenopathy: Left iliac chain lymphadenopathy has not significant change from 09/07/2016. This measures 2.6 x 2.0 0 cm in axial dimension. Multifocal retroperitoneal adenopathy is again noted. Pelvic viscera: The bladder is decompressed around a Manuel catheter and not well evaluated. The uterus is surgically absent. A midline pelvic mass seen on image #338 measures approximately 7 x 5 x 5 cm. Skeletal structures: The skeletal structures are osteopenic. There is mild lumbosacral spondylosis. No lytic or blastic lesions are clearly seen. Metastatic bony disease was noted on the recent PET scan. IMPRESSION: 1. There is no evidence of pulmonary embolus in the main, lobar, or segmental pulmonary arteries. 2. There are no acute infectious or inflammatory findings in the abdomen or pelvis. 3. Ground glass consolidation is seen throughout the left lung. Currently clinically for evidence of an infectious/inflammatory pneumonitis. 4. Intraluminal thrombus is identified within the inferior vena cava. 5. There is a large right pleural effusion with near-complete atelectasis of the right middle and right lower lobes. This has increased from 09/07/2016. 6. There is a trace left pleural effusion. 7. Findings of extensive/widespread metastatic disease throughout the chest, abdomen, and pelvis have not significantly changed from the 09/07/2016 PET assessment. 8. There are postoperative changes from partial colon resection with transverse colostomy. No bowel obstruction is seen. 9. The left kidney is markedly atrophic and there is left hydroureteronephrosis to the level of left iliac chain adenopathy. This is similar to previous. 10. There is a new low-attenuation lesion in the upper pole the right kidney, likely representing a renal metastasis. 11. Trace abdominopelvic ascites. 12. See above for detailed findings. Electronically signed by: Jose A Garcia M.D. 09/28/2016 12:19 PM Dictated Date/Time: 09/28/2016 11:55 AM The status of this report is Signed. Draft = Not yet reviewed or approved by Radiologist. Signed = Reviewed and approved by Radiologist. <AttendingPhy></AttendingPhy> <FamilyPhy>Akhil Bradley M.D.</FamilyPhy> < PrimaryPhy>Akhil Bradley M.D.</PrimaryPhy> <UnitNumber>[id number]</UnitNumber> <VisitNumber>[id number]</VisitNumber> <PatientName>EVELYN BENNETT</PatientName > <DateOfBirth>1945</DateOfBirth> <Location>[facility]</Location> <ServiceDate> 09/28/16</ServiceDate> <MNE>ESINDI</MNE> <OrderingPhy>Ger Crawford MD</ OrderingPhy> <OrderingPhyMNE>f rep ord dr duarte</OrderingPhyMNE> <DictatingPhyMNE> f rep dict dr duarte</DictatingPhyMNE> <CCListMNE>f rep ct naze</CCListMNE> < AdmittingPhyMNE>f pt admit dr duarte</AdmittingPhyMNE> <AttendingPhyMNE>f pt attend dr duarte</AttendingPhyMNE> <ConsultingPhyMNE>f pt consult dr duarte</ConsultingPhyMNE> <FamilyPhyMNE>f pt fam dr duarte</FamilyPhyMNE> <OtherPhyMNE>f pt other dr duarte</OtherPhyMNE> < PrimaryPhyMNE>f pt prim care dr duarte</PrimaryPhyMNE> <ReferringPhyMNE>f pt referring dr duarte</ReferringPhyMNE> Assessment & Plan 71 yo female with metastatic adenocarcinoma of colon now with right exudative effusion s/p drainage, ground glass right upper lobe changes with persistent elevations of lactic acid and WBC. Suspect metastatic cancer causing both abnormalities, with steroid use contributing to leukocytosis. However cannot rule out RUL infection, and may have had soft tissue infection of left lower leg from skin tear (now improved). For now, continue Rx with vancomycin, levofloxacin, and Zosyn. Length to be determined by clinical response. Legionella urine Ag ordered. Will follow.
[2016-09-30] MEDS ORDERED: LEVALBUTEROL/IPRATROPIUM NEB INH SCH (15:00)
[2016-09-30] MEDS ORDERED: ALTEPLASE, RECOMBINANT 1 MG/ML 2 ML VIAL IV ONE (15:15)
[2016-10-01] VITALS (10 sets, daily range): BP systolic 96–120; BP diastolic 64–84; PULSE 63–119; TEMP 36.3–36.8; O2SAT 22–100
[2016-10-01] MEDS: PIPERACILL/TAZOBAC IV 3.375 GM in DEXTROSE 5% 100ML 100 ML IV SCH ×3 (01:47→17:45)
[2016-10-01] MEDS: SODIUM CHLORIDE 0.9% 1000ML 1,000 ML IV SCH ×2 (01:48→15:13)
[2016-10-01] MEDS: LEVALBUTEROL 1.25MG/0.5ML NEB INH SCH ×4 (02:04→18:59)
[2016-10-01] MEDS: IPRATROPIUM BROMIDE NEB SOLN 0.02% 2.5 ML VIAL INH SCH ×4 (02:04→18:59)
[2016-10-01] MEDS: MoRPHine SULFATE 2 MG/ML CARP IV PRN ×5 (02:06→22:13)
[2016-10-01] MEDS: LIDOCAINE HCL 2% VISCOUS SOLN 60 ML, DiphenhydrAMINE HCL SYRUP 150 MG, ALUMINUM/MAGNESI... MT SCH ×24 (04:00→23:54)
[2016-10-01 07:00] LABS: MEAN CORPUSCULAR HGB CONC 32.2 g/dl (32-36)
[2016-10-01 07:09] LABS: HEMATOCRIT 42.9 % (37-47); MEAN CELL VOLUME 75.8 fL (80-100); MEAN CORPUSCULAR HEMOGLOBIN 24.4 pg (25-34); RED BLOOD COUNT 5.66 M/uL (4.2-5.4); WHITE BLOOD COUNT 22.57 K/uL (4.8-10.8)
[2016-10-01 07:10] LABS: PARTIAL THROMBOPLASTIN RATIO 1.3
[2016-10-01 07:32] LABS: BASO % 0.2 %; BASO ABS # 0.04 K/uL (0-0.2); COMPLETE YES; ECHINOCYTES 3+; IG% 1.4 %; LYMPH ABS # 0.67 K/uL (1.2-3.4); MICROCYTOSIS PRESENT; MONO % 1.7 %; NEUT % 93.7 %; PLATELET COUNT 130 K/uL (130-400); PLT ESTIMATE DECREASED
[2016-10-01 07:33] LABS: BUN/CREATININE RATIO 26.5 (10-20); CALCIUM 9.3 mg/dl (8.5-10.1); CREATININE 1.2 mg/dl (0.60-1.20); MAGNESIUM 2.1 mg/dl (1.8-2.4); POTASSIUM 4.2 mmol/L (3.5-5.1)
[2016-10-01] MEDS: CHECK FENTANYL PATCH PLACEMENT SCH ×3 (08:41→23:54)
[2016-10-01] MEDS: PANTOprazole SOD 40 MG TAB PO SCH (08:41)
[2016-10-01] MEDS: METHYLPREDNISOLONE IV 40 MG in SYRINGE 0 ML IV SCH ×2 (08:41→20:29)
[2016-10-01] MEDS: ENOXAPARIN SQ SCH (10:04)
[2016-10-01] MEDS ORDERED: HEPARIN 25,000 UNIT/500ML D5W 500 ML IV PRN (12:30)
--- NOTE | 2016-10-01 13:18 | Progress Note ---
Subjective Date of Service: October 01, 2016. Subjective Pt evaluation today including: conversation w/ patient, physical exam, chart review, lab review, review of studies, conversation w/ investment consultant, review of inpatient medication list Continue to be hypoxic, need high flow oxygen, However eating drinking, generally looks the same as yesterday, not toxic Reports some cough, and left lower extremity wounds is in dressing Problem List Medical Problems: (1) Pneumonia Status: Acute (2) Sepsis Status: Acute Review of Systems Constitutional: + fatigue, + weakness, No chills, No fever, No problem reported , No sweats, No weight loss Eyes: No diplopia, No discharge, No eye pain, No redness, No worsening of vision ENT: No dental problems, No hearing loss, No nasal symptoms, No sore throat, No tinnitus, No trouble swallowing, No unusual epistaxis Respiratory: + cough, + shortness of breath, No dyspnea at rest, No dyspnea on exertion, No hemoptysis, No sputum, No wheezing Cardiac: No PND, No chest pain, No claudication, No edema, No orthopnea, No palpitations Abdomen: No constipation, No diarrhea, No nausea, No pain, No vomiting Musculoskeletal: No calf pain, No joint pain, No muscle pain, No swelling Female : No abnormal vaginal bleeding, No dysuria, No hematuria, No incontinence, No urinary frequency, No vaginal discharge Neurologic: No balance problems, No memory loss, No numbness/tingling, No paralysis, No vertigo, No weakness Psychiatric: No anhedonism, No anxiety, No depression symptoms, No insomnia, No substance abuse Heme: No abnormal bleeding/bruising, No clotting problems, No night sweats, No swollen lymph nodes Endo: No excessive thirst, No excessive urination, No fatigue Skin: + problem reported (chronic wound in left lower extremity), No bleeding, No color change, No itch, No new/changing skin lesions, No rash Objective Vital Signs Date Time Temp Pulse Resp B/P Pulse Ox O2 Delivery O2 Flow Rate FiO2 10/01/16 12:06 36.6 92 18 98/64 98 10/01/16 12:00 High Flow Oxygen 45.0 80 10/01/16 08:00 High Flow Oxygen 45.0 80 10/01/16 08:00 36.8 98 20 101/69 100 10/01/16 07:11 110 24 90 Nasal Cannula 45.0 80 10/01/16 04:00 92 High Flow Oxygen 45.0 80 10/01/16 03:57 36.3 110 22 96/67 92 High Flow Oxygen 45.0 80 10/01/16 02:04 119 28 91 Nasal Cannula 45.0 80 10/01/16 00:10 36.5 112 24 120/84 92 High Flow Oxygen 30.0 Humidified Oxygen 09/30/16 23:59 High Flow Oxygen 30.0 70 09/30/16 20:00 High Flow Oxygen 35.0 70 09/30/16 19:36 112 26 92 Nasal Cannula 45.0 55 09/30/16 19:12 111 18 112/78 90 High Flow Oxygen 09/30/16 16:00 High Flow Oxygen 35.0 70 09/30/16 15:12 36.6 105 20 88/65 94 High Flow Oxygen Physical Exam General Appearance: + cachetic, + thin, + pertinent finding (frail conversational) ENT: normal ENT inspection, hearing grossly normal Neck: supple, no adenopathy, thyroid normal Respiratory/Chest: normal breath sounds, no respiratory distress, + decreased breath sounds, + rales Abdomen: normal bowel sounds, soft Neurologic/Psychiatric: performance analyst II-XII nml as tested, no motor/sensory deficits, alert, normal mood/affect Laboratory Results Last 24 Hours Test 09/30/16 14:25 09/30/16 15:00 10/01/16 06:30 Heparin Anti-Xa Act, Low Molec Wt 0.74 IU/ML White Blood Count 22.57 K/uL Red Blood Count 5.66 M/uL Hemoglobin 13.8 g/dL Hematocrit 42.9 % Mean Corpuscular Volume 75.8 fL Mean Corpuscular Hemoglobin 24.4 pg Mean Corpuscular Hemoglobin Concent 32.2 g/dl Platelet Count 130 K/uL Neutrophils (%) (Auto) 93.7 % Lymphocytes (%) (Auto) 3.0 % Monocytes (%) (Auto) 1.7 % Eosinophils (%) (Auto) 0.0 % Basophils (%) (Auto) 0.2 % Neutrophils # (Auto) 21.16 K/uL Lymphocytes # (Auto) 0.67 K/uL Monocytes # (Auto) 0.38 K/uL Eosinophils # (Auto) 0.00 K/uL Basophils # (Auto) 0.04 K/uL RDW Standard Deviation 54.4 fL RDW Coefficient of Variation 19.7 % Immature Granulocyte % (Auto) 1.4 % Immature Granulocyte # (Auto) 0.32 K/uL Nucleated RBC Absolute Count (auto) 0.03 K/uL Nucleated Red Blood Cells % 0.1 % Platelet Estimate DECREASED Microcytosis PRESENT Echinocytes 3+ Activated Partial Thromboplast Time 33.9 SECONDS Partial Thromboplastin Ratio 1.3 Sodium Level 140 mmol/L Potassium Level 4.2 mmol/L Chloride Level 109 mmol/L Carbon Dioxide Level 18 mmol/L Anion Gap 13.0 mmol/L Blood Urea Nitrogen 32 mg/dl Creatinine 1.20 mg/dl Est Creatinine Clear Calc Drug Dose 30.2 ml/min Estimated GFR () 53.4 Estimated GFR (Non- 46.1 BUN/Creatinine Ratio 26.5 Random Glucose 127 mg/dl Calcium Level 9.3 mg/dl Phosphorus Level 3.0 mg/dl Magnesium Level 2.1 mg/dl Total Bilirubin 0.5 mg/dl Direct Bilirubin 0.3 mg/dl Aspartate Amino Transf (AST/SGOT) 33 U/L Alanine Aminotransferase (ALT/SGPT) 42 U/L Alkaline Phosphatase 382 U/L Total Protein 5.1 gm/dl Albumin 1.5 gm/dl Assessment and Plan 71-year-old white female admitted on 09/28/2016 to ICU because of sepsis pneumonia and acute respirator failure Sepsis, possible pna with Ground glass opacity present on imaging of lung, or Pneumonitis: Remains related to stable Today has worsening leukocytosis possible from Solu-Medrol, mild elevated lactase level which could be from the malignancy we'll follow-up Acute respiratory failure with hypoxia, requiring higher level of oxygen from yesterday , possible getting worse Nurse report I PCP Natacha no drainage 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, s/p IPC catheter on 09/28/2016, - Pleural Protein/Serum Protein ratio > 0.5; suggests exudate; consistent with pulmonary infection or malignancy - Has asked nurse to call conduit bender to continue follow-up patient, the reason and need for pulmonology follow-up because patient has respirator failure , need high flow oxygen, has problem of IPC catheter drainage Adenocarcinoma of sigmoid colon Metastatic disease: Mediport in the right front chest Indicated poor prognosis Myocardial demand ischemia with Elevated troponin: Stable no chest pain Possible mild acute kidney injury, cr 1.2 today, will follow-up Protein-calorie malnutrition 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 Marinelli has discussed terminal prognosis IVC Thrombosis Mild thrombocytopenia which has been improving, possible indicator improve of the sepsis treatment Was on on Heparin infusion , was changed to Lovenox 0.85mg/kg per recs of timber repairer, discussed with pharmacist, back to heparin drip because decreased renal function, Dr. Donald recommend above IVC filter, instead of heparin or Lovenox, has request Dr. Bruno to see patient Continue antibiotics follow-up infectious disease and pulmonology input Decreased urine output, is getting gentle IV fluid, continue IV fluid, possible Lasix challenge if needed, we'll continue follow-up renal function - DVT Prophylaxis: Transition to Lovenox CODE STATUS - Do not resuscitate - plalliative care saw pt , per pt's wishes, if/when decompensation/decline occurs: no escalation of care including compressions, central line, or intubation and allow natural . Patient wishes to be made comfortable if/ when she gets to that point. Has morphine 2mg IV prn ordered for pain, would encourage use for air hunger as well. DISPOSITION - OT/PT: Ordered Continued [facility] stay due to: multiple IV medications needed Discharge planning: uncertain
--- NOTE | 2016-10-01 15:14 | Surgery Consultation ---
Consultation Date of Service October 01, 2016. Chief Complaint IVC thrombus History of Present Illness The patient is a 71 year old female with multiple medical problems, including metastatic colon ca, admitted with pleural effusions, seen in consultation today for IVC thrombus noted on CT scan and possible IVC filter insertion. Pt admits SOB, currently on high flow O2. Admits malaise and general deterioration. Denies HECK, fever, chills, N/V, rest pain, other complaints. No previous hx of DVT per pt and sister. Vitals Vital Signs Past 12 Hours Date Time Temp Pulse Resp B/P Pulse Ox O2 Delivery O2 Flow Rate FiO2 10/01/16 12:06 36.6 92 18 98/64 98 10/01/16 12:00 High Flow Oxygen 45.0 80 10/01/16 08:00 High Flow Oxygen 45.0 80 10/01/16 08:00 36.8 98 20 101/69 100 10/01/16 07:11 110 24 90 Nasal Cannula 45.0 80 10/01/16 04:00 92 High Flow Oxygen 45.0 80 10/01/16 03:57 36.3 110 22 96/67 92 High Flow Oxygen 45.0 80 Allergies Coded Allergies: No Known Allergies (Unverified , 03/05/15) Home Medications Scheduled Dexamethasone (Decadron), 8 MG PO DAILY Diphenhy/Alum/Mag/Sucralfa (Magic Swizzle - Diphenhy/Alum/Mag/Sucralfa), 2 TSP PO Q4H Fentanyl (Fentanyl), 25 MCG TOP [id number] Scheduled PRN Hydrocodone-Acetaminophen (Hydrocodone/Acetami 7.5/325MG 15ML), 7.5 ML PO Q6H PRN for Pain Problem List Medical Problems: (1) Adenocarcinoma of sigmoid colon (2) Ground glass opacity present on imaging of lung (3) [place]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 (4) Metastatic disease (5) Protein-calorie malnutrition (6) Sepsis (7) SOB (shortness of breath) Surgical / Medical History Hx Cardiac Surgery: No Hx Abdominal Surgery: Yes Hx Cancer Surgery: Yes Hx Thoracic Surgery: No Hx Orthopedic: No Hx Urinary Tract Surgery: No Past Medical/Surgical History: Cancer Family History Cancer Social History Smoking Status: Former Smoker Hx Tobacco Use In Past Year?: Yes Hx Alcohol Use - Type & Amnt: No Hx Substance Use -Type & Amnt: No Review of Systems Constitutional: + malaise, No chills, No fever Skin: No change in color Eyes: No visual changes ENMT: No sore throat Respiratory: + WILLS, + cough, + orthopnea, + short of breath, No hemoptysis Cardiovascular: No chest pain, No edema, No intermittent claudication, No palpitations, No syncope Gastrointestinal: No abdominal pain, No nausea, No vomiting Genitourinary - Female: No dysuria, No hematuria Neurologic: No dizziness, No headache, No numbness, No tingling Physical Exam Constitutional: General Apperance: well-nourished, well-developed, cachectic, too thin Level of Distress: chronically ill Psychiatric: Mental Status: normal mood, normal affect, lethargic, anxious, depressed Orientation: oriented except where noted, to time, to place, to person Memory: recent memory normal (vague), remote memory normal Head: normocephalic, atraumatic Eyes: EOM: EOMI ENMT: normal ENT inspection, hearing grossly normal Neck: supple, trachea midline Lungs: Respiratory effort: no dyspnea Auscultation: no rales/crackles, no rhonchi, decreased breath sounds Cardiovascular: Apical Impulse: not displaced Heart Auscultation: RRR, no rubs, no gallops Peripheral Pulses: Pulses: full and equal, in all extremities except if noted Bruits: none appreciated Carotid Pulse: normal on the left, normal on the right Brachial Pulses: normal on the left, normal on the right Radial Pulse: normal on the left, normal on the right Femoral Pulse: normal on the left, normal on the right Posterior Tibialis Pulse: decreased on the left, decreased on the right Dorsalis Pedis Pulse: decreased on the left, decreased on the right Abdomen: Bowel Sounds: normal Inspection & Palpation: soft, non-distended, no tenderness, guarding & rebound Musculoskeletal: normal strength (5/5 throughout), normal tone Extremities: Upper Right: no cyanosis, no edema Upper Left: no cyanosis, no edema, no varicosities Lower Right: no cyanosis, no edema, no varicosities Lower Left: no cyanosis, no edema, no palpable cord Neurologic: Cranial Nerves: grossly intact Sensation: grossly intact Assessment and Plan ASSESSMENT and PLAN: IVC thrombus Pt discussed with Dr Bruno, who also reviewed pt's CT scan, recommend anticoagulation. No vascular surgical intervention recommended at this time. If pt has contraindications to anticoagulation, then IVC filter could be considered. Pt and sister aware. Please call if needed.
--- NOTE | 2016-10-01 17:33 | Pulmonology Progress Note ---
Pulmonary Progress Note Date of Service October 01, 2016. Attending Dr. Padilla Subjective Still on high flow nasal cannula. The chest output slowed down significantly, drain only 25 ml today Objective General: mild respiratory distress Vital signs: Hypoxic, on high-flow nasal cannula Respiratory: Bilateral rhonchi appreciated at the bases Cardiac: S1-S2 regular Abdomen: Soft positive bowel sounds, ileostomy Ext: No edema Assessment & Plan 71-year-old female with malignant right-sided pleural effusion Respiratory failure secondary to metastatic lung disease, atelectasis, possible pneumonic process as well Continue to drain the pleural catheter as needed Supplement Oxygen Continue steroids, bronchodilators Continue Abx, on Zosyn, Levaquin, Vanco Palliative care following the patient. In my opinion the prognosis is dismal, I think it is futile to attempt IVC filter. DNR Data Medications: Current Inpatient Medications Medications (Trade) Dose Ordered Sig/Sarahi Route Start Time Stop Time Status Last Admin Dose Admin Ioversol (Optiray 320) 125 ml UD PRN IV 09/28/16 10:30 10/02/16 10:29 Acetaminophen (Tylenol Tab) 650 mg Q4H PRN PO 09/28/16 13:15 10/28/16 13:14 Lorazepam (Ativan Tab) 0.5 mg Q4H PRN PO 09/28/16 13:15 10/28/16 13:14 Morphine Sulfate (MoRPHine SULFATE INJ) 2 mg Q2H PRN IV 09/28/16 13:15 10/12/16 13:14 10/01/16 14:00 2 MG Vancomycin HCl 1 ea 1 ea UD N/A 09/28/16 15:29 10/28/16 15:28 Levofloxacin 750 mg/Prmx 150 ml @ 100 mls/hr Q48H IV 09/30/16 12:00 10/07/16 11:59 09/30/16 11:59 100 MLS/HR Piperacillin Sod/ Tazobactam Sod/ Dextrose 115 ml @ 28.75 mls/ hr Q8H IV 09/28/16 18:00 10/05/16 17:59 10/01/16 10:04 28.75 MLS/HR Lidocaine HCl/ Diphenhydramine HCl/Al Hydroxide/ Mg Hydroxide/ Glycerin/Barcode (VISCOUS LIDOCAINE 2% Soln/ Benadryl Syrup/ Maalox Susp/ Glycerin Anhydrous Soln) Q4 MT 09/28/16 16:00 10/28/16 15:59 10/01/16 12:14 10 ML Piperacillin Sod/ Tazobactam Sod (Consult) 1 ea UD N/A 09/28/16 15:30 10/28/16 15:29 Levofloxacin (Consult) 1 ea UD N/A 09/28/16 15:45 10/28/16 15:44 Heparin Sodium (Porcine) 5 ml 5 ml PRN PRN IV 09/29/16 03:45 10/29/16 03:44 09/30/16 17:43 5 ML Methylprednisolone Sodium Succinate/ Syringe (Solu-Medrol IV/ Syringe) 0.64 ml @ 1.5 mls/min BID IV 09/29/16 10:00 10/29/16 09:59 10/01/16 08:41 1.5 MLS/MIN Pantoprazole Sodium (Protonix Tab) 40 mg QAM PO 09/30/16 09:00 10/30/16 08:59 10/01/16 08:41 40 MG Fentanyl (Duragesic Patch) 25 mcg Q72H TD 09/29/16 21:00 10/13/16 20:59 09/29/16 21:23 25 MCG Miscellaneous (Fentanyl Patch Remove & Waste) 1 ea Q3D@2059 N/A 10/02/16 20:59 11/01/16 20:58 Miscellaneous Information (Check Fentanyl Patch Placement) 1 ea QS N/A 09/30/16 00:00 10/30/16 00:00 10/01/16 08:41 1 EA Ipratropium [place] (Atrovent 0.02% 0.5MG/2.5ML Neb) 0.5 mg Q6R INH 09/30/16 15:00 10/30/16 14:59 10/01/16 07:11 0.5 MG Levalbuterol 1.25 mg 1.25 mg Q6R INH 09/30/16 15:00 10/30/16 14:59 10/01/16 07:11 1.25 MG Vancomycin HCl 700 mg/Sodium Chloride 264 ml @ 125 mls/hr Q48H IV 10/02/16 10:00 10/06/16 09:59 Future Hold Sodium Chloride 1,000 ml @ 80 mls/hr [id number] IV 09/30/16 12:00 10/30/16 11:59 10/01/16 01:48 80 MLS/HR Heparin Sodium/ Dextrose (Heparin 25,000 Unit/500ml D5W) 500 ml @ 16 mls/hr Q24H IV 10/02/16 04:00 11/01/16 03:59 I & O: 24-Hour Column 10/01/16 07:59 Intake Total 2182 ml Output Total 335 ml Balance 1847 ml Vital Signs: Date Time Temp Pulse Resp B/P Pulse Ox O2 Delivery O2 Flow Rate FiO2 10/01/16 12:06 36.6 92 18 98/64 98 10/01/16 12:00 High Flow Oxygen 45.0 80 10/01/16 08:00 High Flow Oxygen 45.0 80 10/01/16 08:00 36.8 98 20 101/69 100 10/01/16 07:11 110 24 90 Nasal Cannula 45.0 80 10/01/16 04:00 92 High Flow Oxygen 45.0 80 10/01/16 03:57 36.3 110 22 96/67 92 High Flow Oxygen 45.0 80 10/01/16 02:04 119 28 91 Nasal Cannula 45.0 80 10/01/16 00:10 36.5 112 24 120/84 92 High Flow Oxygen 30.0 Humidified Oxygen 09/30/16 23:59 High Flow Oxygen 30.0 70 09/30/16 20:00 High Flow Oxygen 35.0 70 09/30/16 19:36 112 26 92 Nasal Cannula 45.0 55 09/30/16 19:12 111 18 112/78 90 High Flow Oxygen 09/30/16 16:00 High Flow Oxygen 35.0 70 09/30/16 15:12 36.6 105 20 88/65 94 High Flow Oxygen Laboratory Results: Last 24 Hours Test 09/30/16 15:00 10/01/16 06:30 Heparin Anti-Xa Act, Low Molec Wt 0.74 IU/ML White Blood Count 22.57 K/uL Red Blood Count 5.66 M/uL Hemoglobin 13.8 g/dL Hematocrit 42.9 % Mean Corpuscular Volume 75.8 fL Mean Corpuscular Hemoglobin 24.4 pg Mean Corpuscular Hemoglobin Concent 32.2 g/dl Platelet Count 130 K/uL Neutrophils (%) (Auto) 93.7 % Lymphocytes (%) (Auto) 3.0 % Monocytes (%) (Auto) 1.7 % Eosinophils (%) (Auto) 0.0 % Basophils (%) (Auto) 0.2 % Neutrophils # (Auto) 21.16 K/uL Lymphocytes # (Auto) 0.67 K/uL Monocytes # (Auto) 0.38 K/uL Eosinophils # (Auto) 0.00 K/uL Basophils # (Auto) 0.04 K/uL RDW Standard Deviation 54.4 fL RDW Coefficient of Variation 19.7 % Immature Granulocyte % (Auto) 1.4 % Immature Granulocyte # (Auto) 0.32 K/uL Nucleated RBC Absolute Count (auto) 0.03 K/uL Nucleated Red Blood Cells % 0.1 % Platelet Estimate DECREASED Microcytosis PRESENT Echinocytes 3+ Activated Partial Thromboplast Time 33.9 SECONDS Partial Thromboplastin Ratio 1.3 Sodium Level 140 mmol/L Potassium Level 4.2 mmol/L Chloride Level 109 mmol/L Carbon Dioxide Level 18 mmol/L Anion Gap 13.0 mmol/L Blood Urea Nitrogen 32 mg/dl Creatinine 1.20 mg/dl Est Creatinine Clear Calc Drug Dose 30.2 ml/min Estimated GFR () 53.4 Estimated GFR (Non- 46.1 BUN/Creatinine Ratio 26.5 Random Glucose 127 mg/dl Calcium Level 9.3 mg/dl Phosphorus Level 3.0 mg/dl Magnesium Level 2.1 mg/dl Total Bilirubin 0.5 mg/dl Direct Bilirubin 0.3 mg/dl Aspartate Amino Transf (AST/SGOT) 33 U/L Alanine Aminotransferase (ALT/SGPT) 42 U/L Alkaline Phosphatase 382 U/L Total Protein 5.1 gm/dl Albumin 1.5 gm/dl
[2016-10-01] MEDS ORDERED: NURSING VERBAL MED ORDER ONE (22:45)
[2016-10-02] VITALS (14 sets, daily range): BP systolic 78–133; BP diastolic 54–82; PULSE 110–140; TEMP 36–36.9; O2SAT 85–90
[2016-10-02] MEDS: IPRATROPIUM BROMIDE NEB SOLN 0.02% 2.5 ML VIAL INH SCH ×4 (01:35→18:51)
[2016-10-02] MEDS: LEVALBUTEROL 1.25MG/0.5ML NEB INH SCH ×4 (01:35→18:51)
[2016-10-02] MEDS: PIPERACILL/TAZOBAC IV 3.375 GM in DEXTROSE 5% 100ML 100 ML IV SCH ×3 (02:21→18:04)
[2016-10-02] MEDS: SODIUM CHLORIDE 0.9% 1000ML 1,000 ML IV SCH ×3 (02:22→23:51)
[2016-10-02] MEDS ORDERED: HEPARIN 25,000 UNIT/500ML D5W 500 ML IV SCH (04:00)
[2016-10-02] MEDS: LIDOCAINE HCL 2% VISCOUS SOLN 60 ML, DiphenhydrAMINE HCL SYRUP 150 MG, ALUMINUM/MAGNESI... MT SCH ×24 (04:00→23:50)
[2016-10-02] MEDS: MoRPHine SULFATE 2 MG/ML CARP IV PRN ×6 (04:09→23:10)
[2016-10-02 06:01] LABS: MEAN CORPUSCULAR HGB CONC 32.7 g/dl (32-36)
[2016-10-02 06:09] LABS: HEMATOCRIT 42.2 % (37-47); MEAN CELL VOLUME 76.7 fL (80-100); MEAN CORPUSCULAR HEMOGLOBIN 25.1 pg (25-34); WHITE BLOOD COUNT 23.77 K/uL (4.8-10.8)
[2016-10-02 06:22] LABS: BASO % 0.2 %; BASO ABS # 0.05 K/uL (0-0.2); COMPLETE YES; ECHINOCYTES 2+; IG% 1.8 %; LYMPH % 2.9 %; LYMPH ABS # 0.68 K/uL (1.2-3.4); MONO % 1.3 %; NEUT % 93.8 %; PLATELET COUNT 113 K/uL (130-400); PLT ESTIMATE DECREASED; SPHEROCYTE 1+
[2016-10-02 06:35] LABS: CALCIUM 9.6 mg/dl (8.5-10.1); CREATININE 1.4 mg/dl (0.60-1.20); POTASSIUM 4.1 mmol/L (3.5-5.1)
[2016-10-02] MEDS: CHECK FENTANYL PATCH PLACEMENT SCH ×3 (08:00→23:50)
[2016-10-02] MEDS: METHYLPREDNISOLONE IV 40 MG in SYRINGE 0 ML IV SCH ×2 (08:37→20:50)
[2016-10-02] MEDS: PANTOprazole SOD 40 MG TAB PO SCH (08:38)
--- NOTE | 2016-10-02 08:44 | DIAGNOSTIC IMAGING REPORT ---
CHEST ONE VIEW PORTABLE HISTORY: Pneumonia. Follow-up. COMPARISON: Chest 09/30/2016. FINDINGS: Progressive bilateral airspace opacities. No pneumothorax. Right jugular central venous catheter terminates in the SVC. The heart is stable in size. Suspect small bilateral pleural effusions. Right basilar pleural catheter is again noted. IMPRESSION: Progressive bilateral airspace opacities. Electronically signed by: Jules Rosales M.D. 10/02/2016 8:43 AM Dictated Date/Time: 10/02/2016 8:42 AM
[2016-10-02] MEDS ORDERED: VANCOMYCIN TROUGH SCH (09:30)
[2016-10-02] MEDS ORDERED: VANCOMYCIN INJ 700 MG in SODIUM CHLORIDE 0.9% 250ML 250 ML IV SCH ×2 (10:00→12:00)
[2016-10-02 10:48] LABS: BUN/CREATININE RATIO 26.8 (10-20); CALCIUM 9.6 mg/dl (8.5-10.1); CREATININE 1.5 mg/dl (0.60-1.20); POTASSIUM 4.4 mmol/L (3.5-5.1)
--- NOTE | 2016-10-02 10:51 | Hematology/Oncology Prog Note ---
Hematology/Onc Progress Note Date of Service October 02, 2016. Diagnoses Metastatic colon carcinoma Respiratory insufficiency secondary to progression of disease Medications Medications Administered Medications (Trade) Dose Ordered Sig/Sarahi Route Start Time Stop Time Status Last Admin Dose Admin Sodium Chloride (Nss 1000ml) 1,000 ml @ 999 mls/hr Q1H1M ONCE IV 09/28/16 10:15 09/28/16 11:15 DC 09/28/16 11:01 999 MLS/HR Piperacillin Sod/ Tazobactam Sod (Zosyn Iv) 4.5 gm ONE STAT IV 09/28/16 10:15 09/28/16 10:17 DC 09/28/16 11:52 4.5 GM Levofloxacin (Levaquin / D5W) 750 mg ONE STAT IV 09/28/16 10:15 09/28/16 10:17 DC 09/28/16 11:52 750 MG Hydromorphone HCl (Dilaudid Inj) 1 mg NOW STAT IV 09/28/16 10:54 09/28/16 10:55 DC 09/28/16 11:00 1 MG Ondansetron HCl (Zofran Inj) 4 mg NOW STAT IV 09/28/16 10:54 09/28/16 10:55 DC 09/28/16 10:59 4 MG Ipratropium [place] (Atrovent 0.02% 0.5MG/2.5ML Neb) 1.5 mg ONE STAT INH 09/28/16 11:22 09/28/16 13:00 DC 09/28/16 11:22 1.5 MG Levalbuterol (Xopenex 1.25MG/ 0.5ML Neb) 3.75 mg ONE STAT INH 09/28/16 11:22 09/28/16 13:00 DC 09/28/16 11:22 3.75 MG Vancomycin HCl 1 gm 1 gm STK-MED ONCE .ROUTE 09/28/16 12:19 09/28/16 12:20 DC 09/28/16 12:19 1 GM Sodium Chloride (Nss 500ml) 290 ml @ 999 mls/hr Q18M STAT IV 09/28/16 12:35 09/28/16 12:52 DC 09/28/16 12:35 999 MLS/HR Lorazepam 0.5 mg 0.5 mg NOW STAT IV 09/28/16 12:44 09/28/16 12:46 DC 09/28/16 12:51 0.5 MG Sodium Chloride (Nss 1000ml) 1,000 ml @ 90 mls/hr Q11H7M IV 09/28/16 13:08 09/29/16 09:29 DC 09/29/16 05:45 90 MLS/HR Lorazepam (Ativan Tab) 0.5 mg Q4H PRN PO 09/28/16 13:15 10/28/16 13:14 10/01/16 21:56 0.5 MG Morphine Sulfate 2 mg 2 mg Q2H PRN IV 09/28/16 13:15 10/12/16 13:14 10/02/16 08:50 2 MG Levofloxacin 750 mg/Prmx 150 ml @ 100 mls/hr Q48H IV 09/30/16 12:00 10/07/16 11:59 09/30/16 11:59 100 MLS/HR Vancomycin HCl 700 mg/Sodium Chloride 264 ml @ 125 mls/hr Q24H IV 09/29/16 10:00 09/30/16 11:28 DC 09/30/16 09:53 125 MLS/HR Piperacillin Sod/ Tazobactam Sod/ Dextrose 115 ml @ 28.75 mls/ hr Q8H IV 09/28/16 18:00 10/05/16 17:59 10/02/16 10:23 28.75 MLS/HR Lidocaine HCl/ Diphenhydramine HCl/Al Hydroxide/ Mg Hydroxide/ Glycerin/Barcode (VISCOUS LIDOCAINE 2% Soln/ Benadryl Syrup/ Maalox Susp/ Glycerin Anhydrous Soln) Q4 MT 09/28/16 16:00 10/28/16 15:59 10/02/16 08:38 10 ML Midazolam HCl 5 mg 5 mg STK-MED ONCE .ROUTE 09/28/16 17:17 09/28/16 17:18 DC 09/28/16 18:21 1 MG Heparin Sodium/ Dextrose (Heparin 25,000 Unit/500ml D5W) 500 ml @ 13 mls/hr Q24H PRN IV 09/28/16 18:00 09/29/16 11:00 DC 09/28/16 19:49 15 MLS/HR Heparin Sodium (Porcine) 5 ml 5 ml PRN PRN IV 09/29/16 03:45 10/29/16 03:44 09/30/16 17:43 5 ML Methylprednisolone Sodium Succinate/ Syringe (Solu-Medrol IV/ Syringe) 0.64 ml @ 1.5 mls/min BID IV 09/29/16 10:00 10/29/16 09:59 10/02/16 08:37 1.5 MLS/MIN Pantoprazole Sodium (Protonix Tab) 40 mg QAM PO 09/30/16 09:00 10/30/16 08:59 10/02/16 08:38 40 MG Pantoprazole Sodium (Protonix Tab) 40 mg 0942 ONCE PO 09/29/16 09:42 09/29/16 09:50 DC 09/29/16 11:46 40 MG Enoxaparin Sodium (Lovenox Inj) 36 mg Q12H SQ 09/29/16 10:00 09/29/16 13:54 DC 09/29/16 11:47 36 MG Miscellaneous 1 ea 1 ea ONE ONCE N/A 09/29/16 11:00 09/29/16 11:01 DC 09/29/16 11:47 1 EA Enoxaparin Sodium/ Syringe (Lovenox Inj/ Syringe) 0.36 ml @ 0 mls/sec Q12H SQ 09/29/16 22:00 10/01/16 12:05 DC 10/01/16 10:04 0.36 MLS/SEC Fentanyl (Duragesic Patch) 25 mcg Q72H TD 09/29/16 21:00 10/13/16 20:59 09/29/16 21:23 25 MCG Miscellaneous Information (Check Fentanyl Patch Placement) 1 ea QS N/A 09/30/16 00:00 10/30/16 00:00 10/02/16 08:00 1 EA Ipratropium [place] (Atrovent 0.02% 0.5MG/2.5ML Neb) 0.5 mg Q6R INH 09/30/16 15:00 10/30/16 14:59 10/02/16 07:16 0.5 MG Levalbuterol 1.25 mg 1.25 mg Q6R INH 09/30/16 15:00 10/30/16 14:59 10/02/16 07:16 1.25 MG Sodium Chloride (Nss 1000ml) 1,000 ml @ 80 mls/hr [id number] IV 09/30/16 12:00 10/30/16 11:59 10/02/16 02:22 80 MLS/HR Alteplase, Recombinant 2 mg 2 mg ONE ONCE IV 09/30/16 15:15 09/30/16 15:16 DC 09/30/16 15:56 2 MG Heparin Sodium/ Dextrose (Heparin 25,000 Unit/500ml D5W) 500 ml @ 16 mls/hr Q24H IV 10/02/16 04:00 11/01/16 03:59 10/02/16 04:00 16 MLS/HR Subjective Review of Systems: Constitutional: Negative for fever Cardiovascular: Negative for chest pain, palpitations, dizziness, diaphoresis Respiratory: He remains markedly short of breath Gastrointestinal: Negative for diarrhea, hematemesis, melena, nausea, vomiting , or dyspepsia Neurological: Negative for weakness, seizure activity, headache, or dizziness Lymphatic/Hematologic: Negative for petechiae, bleeding or new adenopathy Musculoskeletal: Negative for new joint or back pain Allergic/Immunologic: Negative for unusual rash or pruritis. Vital Signs Vital Signs Past 12 Hours Date Time Temp Pulse Resp B/P Pulse Ox O2 Delivery O2 Flow Rate FiO2 10/02/16 07:56 36.9 130 18 133/82 89 10/02/16 07:16 120 24 90 Nasal Cannula 45.0 85 10/02/16 04:00 High Flow Oxygen 45.0 80 10/02/16 03:45 36.0 126 24 128/81 86 High Flow Oxygen 10/02/16 01:35 113 24 90 Nasal Cannula 45.0 80 10/02/16 00:00 89 High Flow Oxygen 45.0 80 10/02/16 00:00 36.4 125 20 101/77 89 High Flow Oxygen Physical Exam Constitutional: Vitals remain the same. Overall her performance status is continued to decline easily graded at ECOG 4 Eyes: Eyes are PAT EOMI without conjuctival erythema or icterus. ENT: External examination was negative for masses. Neck: Negative for masses or palpable thyromegaly Respiratory: Lung sounds were generally clear but decreased bilaterally Cardiovascular: Heart was RRR without significant murmur, gallops aoe rubs Gastrointestinal: No palpable hepatic or splenomegaly. The abdomen was soft with normal bowel sounds. Lymphatic system: there was no palpable peripheral lymphadenopathy Musculoskeletal System: The musculoskeletal system seemed concordant with age. Skin: The skin was negative for jaundice. Neurologic exam: The exam was negative for any focal findings. Deep tendon reflexes were equal and symmetrical. Laboratory Last 24 Hours Test 10/02/16 05:00 10/02/16 09:49 White Blood Count 23.77 K/uL Red Blood Count 5.50 M/uL Hemoglobin 13.8 g/dL Hematocrit 42.2 % Mean Corpuscular Volume 76.7 fL Mean Corpuscular Hemoglobin 25.1 pg Mean Corpuscular Hemoglobin Concent 32.7 g/dl Platelet Count 113 K/uL Neutrophils (%) (Auto) 93.8 % Lymphocytes (%) (Auto) 2.9 % Monocytes (%) (Auto) 1.3 % Eosinophils (%) (Auto) 0.0 % Basophils (%) (Auto) 0.2 % Neutrophils # (Auto) 22.31 K/uL Lymphocytes # (Auto) 0.68 K/uL Monocytes # (Auto) 0.30 K/uL Eosinophils # (Auto) 0.00 K/uL Basophils # (Auto) 0.05 K/uL RDW Standard Deviation 55.8 fL RDW Coefficient of Variation 19.9 % Immature Granulocyte % (Auto) 1.8 % Immature Granulocyte # (Auto) 0.43 K/uL Nucleated RBC Absolute Count (auto) 0.06 K/uL Nucleated Red Blood Cells % 0.3 % Platelet Estimate DECREASED Spherocytes 1+ Echinocytes 2+ Sodium Level 140 mmol/L 140 mmol/L Potassium Level 4.1 mmol/L 4.4 mmol/L Chloride Level 109 mmol/L 109 mmol/L Carbon Dioxide Level 19 mmol/L 17 mmol/L Anion Gap 12.0 mmol/L 14.0 mmol/L Blood Urea Nitrogen 38 mg/dl 40 mg/dl Creatinine 1.40 mg/dl 1.50 mg/dl Est Creatinine Clear Calc Drug Dose 25.9 ml/min 24.1 ml/min Estimated GFR () 44.3 40.8 Estimated GFR (Non- 38.2 35.2 BUN/Creatinine Ratio 27.0 26.8 Random Glucose 142 mg/dl 141 mg/dl Calcium Level 9.6 mg/dl 9.6 mg/dl Activated Partial Thromboplast Time 77.7 SECONDS Partial Thromboplastin Ratio 3.0 Vancomycin Level Trough 9.8 mcg/ml Assessment & Plan Metastatic widespread colon carcinoma. She has further deteriorated over the past couple of days. I have restated to the patient as well as to her relative in the room today that further biotherapy or any sort of chemotherapy will not be helpful. This is the same sort of comments that I have shared previously. Her survival is obviously extremely short. Supportive care continues. We have Little else data at this juncture. I understand that discharge plans would most likely with her level of care include a detention facility although I'm suspect her relative with like very much to take her home. We will sign off for now but please do hesitate to reconsult if necessary.
[2016-10-02] MEDS: LEVOFLOXACIN / D5W 750 MG in PREMIXED IN D5W 150 ML IV SCH (12:18)
[2016-10-02] MEDS ORDERED: NURSING VERBAL MED ORDER ONE (12:45)
[2016-10-02] MEDS ORDERED: FUROSEMIDE INJ 40 MG in SYRINGE 0 ML IV ONE (13:00)
--- NOTE | 2016-10-02 14:01 | Progress Note ---
Subjective Date of Service: October 02, 2016. Subjective Pt evaluation today including: conversation w/ patient, conversation w/ family , physical exam, chart review, lab review, review of studies, conversation w/ garden consultant, review of inpatient medication list Much worse of Breathing and desaturation even on 90% FiO2- high flow, general condition looks tired and exhausted, Problem List Medical Problems: (1) Pneumonia Status: Acute (2) Sepsis Status: Acute Review of Systems Constitutional: + fatigue, + weakness, No chills, No fever, No problem reported , No see HPI, No sweats, No weight loss Eyes: No diplopia, No discharge, No eye pain, No problem reported, No redness, No see HPI, No worsening of vision ENT: No dental problems, No hearing loss, No nasal symptoms, No problem reported, No see HPI, No sore throat, No tinnitus, No trouble swallowing, No unusual epistaxis Respiratory: + dyspnea at rest, + shortness of breath Cardiac: + edema, No PND, No chest pain, No claudication, No orthopnea, No palpitations, No problem reported, No see HPI Abdomen: No GI bleeding, No constipation, No diarrhea, No nausea, No pain, No problem reported, No see HPI, No vomiting Musculoskeletal: + joint pain, No calf pain, No muscle pain, No problem reported, No see HPI, No swelling Female : No abnormal vaginal bleeding, No dysuria, No hematuria, No incontinence, No problem reported, No see HPI, No urinary frequency, No vaginal discharge Neurologic: + problem reported (more lethargic), No balance problems, No memory loss, No numbness/tingling, No paralysis, No see HPI, No vertigo, No weakness Objective Vital Signs Date Time Temp Pulse Resp B/P Pulse Ox O2 Delivery O2 Flow Rate FiO2 10/02/16 12:10 36.8 113 22 114/69 89 10/02/16 12:00 87 High Flow Oxygen 90 10/02/16 08:00 87 High Flow Oxygen 90 10/02/16 07:56 36.9 130 18 133/82 89 10/02/16 07:16 120 24 90 Nasal Cannula 45.0 85 10/02/16 04:00 High Flow Oxygen 45.0 80 10/02/16 03:45 36.0 126 24 128/81 86 High Flow Oxygen 10/02/16 01:35 113 24 90 Nasal Cannula 45.0 80 10/02/16 00:00 89 High Flow Oxygen 45.0 80 10/02/16 00:00 36.4 125 20 101/77 89 High Flow Oxygen 10/01/16 20:01 High Flow Oxygen 45.0 80 10/01/16 19:34 36.6 66 20 115/76 95 10/01/16 18:59 109 22 92 Nasal Cannula 45.0 80 10/01/16 16:08 36.5 63 18 109/74 95 10/01/16 16:00 High Flow Oxygen 45.0 80 Physical Exam General Appearance: WD/WN, + cachetic, + thin, + pertinent finding (frail and labored breathing) Eyes: normal inspection, PERRL, EOMI, sclerae normal ENT: normal ENT inspection, hearing grossly normal, pharynx normal Neck: supple, no adenopathy, thyroid normal, no JVD, no carotid bruits, trachea midline Respiratory/Chest: + decreased breath sounds, + rales, + rhonchi, + pertinent finding (right chest wall has med report) Cardiovascular: no edema, no gallop, no JVD, no murmur, + tachycardia Abdomen: normal bowel sounds, non tender, soft Extremities: normal range of motion, non-tender, normal inspection, + pedal edema (1+) Neurologic/Psychiatric: comber fixer II-XII nml as tested, no motor/sensory deficits, + pertinent finding (lethargic) Laboratory Results Last 24 Hours Test 10/02/16 05:00 10/02/16 09:49 White Blood Count 23.77 K/uL Red Blood Count 5.50 M/uL Hemoglobin 13.8 g/dL Hematocrit 42.2 % Mean Corpuscular Volume 76.7 fL Mean Corpuscular Hemoglobin 25.1 pg Mean Corpuscular Hemoglobin Concent 32.7 g/dl Platelet Count 113 K/uL Neutrophils (%) (Auto) 93.8 % Lymphocytes (%) (Auto) 2.9 % Monocytes (%) (Auto) 1.3 % Eosinophils (%) (Auto) 0.0 % Basophils (%) (Auto) 0.2 % Neutrophils # (Auto) 22.31 K/uL Lymphocytes # (Auto) 0.68 K/uL Monocytes # (Auto) 0.30 K/uL Eosinophils # (Auto) 0.00 K/uL Basophils # (Auto) 0.05 K/uL RDW Standard Deviation 55.8 fL RDW Coefficient of Variation 19.9 % Immature Granulocyte % (Auto) 1.8 % Immature Granulocyte # (Auto) 0.43 K/uL Nucleated RBC Absolute Count (auto) 0.06 K/uL Nucleated Red Blood Cells % 0.3 % Platelet Estimate DECREASED Spherocytes 1+ Echinocytes 2+ Sodium Level 140 mmol/L 140 mmol/L Potassium Level 4.1 mmol/L 4.4 mmol/L Chloride Level 109 mmol/L 109 mmol/L Carbon Dioxide Level 19 mmol/L 17 mmol/L Anion Gap 12.0 mmol/L 14.0 mmol/L Blood Urea Nitrogen 38 mg/dl 40 mg/dl Creatinine 1.40 mg/dl 1.50 mg/dl Est Creatinine Clear Calc Drug Dose 25.9 ml/min 24.1 ml/min Estimated GFR () 44.3 40.8 Estimated GFR (Non- 38.2 35.2 BUN/Creatinine Ratio 27.0 26.8 Random Glucose 142 mg/dl 141 mg/dl Calcium Level 9.6 mg/dl 9.6 mg/dl Activated Partial Thromboplast Time 77.7 SECONDS Partial Thromboplastin Ratio 3.0 Vancomycin Level Trough 9.8 mcg/ml Assessment and Plan 71-year-old white female admitted on 09/28/2016 to ICU because of sepsis pneumonia and acute respirator failure, continue getting worse Sepsis, possible pna with Ground glass opacity today is progressively getting worse per clinical exam and chest x-ray Pneumonia Acute respiratory failure with hypoxia, requiring higher level of oxygen: Obviously is getting worse 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 Marinelli has discussed terminal prognosis Mediport in the right front chest Myocardial demand ischemia with Elevated troponin: acute kidney injury, with worst creatinine today Protein-calorie malnutrition Severe protein-calorie malnutrition IVC Thrombosis Analytical Research Program Manager recommend above IVC filter, instead of heparin or Lovenox, had request Dr. Bruno to see patient Journeyman [employer] and vascular surgeon evaluate patient, felt IVC filter is not fit for patient, recommend anticoagulation with Heparin of if treatment is still a goal for the patient back to heparin drip because decreased renal function, Continue antibiotics follow-up infectious disease and pulmonology input Decreased urine output, has been getting 10 L positive since admission , Because of significant worsening melani soft breasts and worsening chest x-ray I give 1 dose of Lasix 40 mg IV for now, This decision is based on for the symptom release if possible, the risk and benefit discussed with patient and sister in bedside, risk include worsening renal function - DVT Prophylaxis: Transition to Lovenox CODE STATUS - Do not resuscitate - plalliative care saw pt , per pt's wishes, if/when decompensation/decline occurs: no escalation of care including compressions, central line, or intubation and allow natural . Patient wishes to be made comfortable if/ when she gets to that point. Has morphine 2mg IV prn ordered for pain, would encourage use for air hunger as well. Today patient's condition is obviously getting worse in terms of more labored breathing, hypoxic in high flow, worsening chest x-ray, and worsening renal function, her general condition is deconditioning too I told patient and sister in bedside, possible very poor prognosis, I have requested palliative care to talk to patient and family again Continued [facility] stay due to: multiple IV medications needed Discharge planning: uncertain
--- NOTE | 2016-10-02 14:57 | Pharmacy Progress Note ---
Pharmacy Abx Dose Short Note Date of Service October 02, 2016. Assessment & Plan Assessment * The patient is currently receiving the following antimicrobial agents per Pharmacy consult: * VANCOMYCIN 700 mg IV/PO every 24 hours * LEVOFLOXACIN 750 mg IV Q 48 hours * ZOSYN 3.375 grams IV (over 4 hours) Q 8 hours * Today is Day # 5 ABX for sepsis possible PNX * Patient renal fxn continues to decline, also her resp status has continued to worsen, sats worse. Cultures remain negative however. * SCr up to 1.4 today (baseline ~0.65-0.75); this is the highest her SCr has been thus far, U.O. remains low despite hydration * Placed vancomycin on hold until trough level assessed today Plan Vancomycin * Trough level of 9.8 mcg/mL is subtherapeutic - will resume vancomycin. I had originally felt a Q 48 hr interval would be required. Will need to shorten the interval as this trough is below our target * Change to 700 mg IV every 36 hours * Goal trough level for sepsis/PNX : 15 to 20 mcg/mL * Trough level ordered for: 10/04/16 Pharmacy will continue to follow and will adjust dose/frequency as necessary. Thank you.
--- NOTE | 2016-10-02 15:19 | Pulmonology Progress Note ---
Pulmonary Progress Note Date of Service October 02, 2016. Attending Dr. Padilla Subjective Very weak today, requires high-flow nasal cannula with high FiO2. 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 Continue to drain the pleural catheter as needed Supplement Oxygen Continue steroids, bronchodilators Continue Abx, on Zosyn, Levaquin, Vanco Palliative care following the patient. Fully anticoagulated. DNR The life expectancy is quite short, hospice care should be initiated in the hospital. I doubt she can be discharged anywhere on high flow cannula, or very high FiO2 by mask. Reconsult Pulmonary as needed Data Medications: Current Inpatient Medications Medications (Trade) Dose Ordered Sig/Sarahi Route Start Time Stop Time Status Last Admin Dose Admin Acetaminophen (Tylenol Tab) 650 mg Q4H PRN PO 09/28/16 13:15 10/28/16 13:14 Lorazepam (Ativan Tab) 0.5 mg Q4H PRN PO 09/28/16 13:15 10/28/16 13:14 10/01/16 21:56 0.5 MG Morphine Sulfate (MoRPHine SULFATE INJ) 2 mg Q2H PRN IV 09/28/16 13:15 10/12/16 13:14 10/02/16 13:08 2 MG Vancomycin HCl 1 ea 1 ea UD N/A 09/28/16 15:29 10/28/16 15:28 Levofloxacin 750 mg/Prmx 150 ml @ 100 mls/hr Q48H IV 09/30/16 12:00 10/07/16 11:59 10/02/16 12:18 100 MLS/HR Piperacillin Sod/ Tazobactam Sod/ Dextrose 115 ml @ 28.75 mls/ hr Q8H IV 09/28/16 18:00 10/05/16 17:59 10/02/16 10:23 28.75 MLS/HR Lidocaine HCl/ Diphenhydramine HCl/Al Hydroxide/ Mg Hydroxide/ Glycerin/Barcode (VISCOUS LIDOCAINE 2% Soln/ Benadryl Syrup/ Maalox Susp/ Glycerin Anhydrous Soln) Q4 MT 09/28/16 16:00 10/28/16 15:59 10/02/16 08:38 10 ML Piperacillin Sod/ Tazobactam Sod (Consult) 1 ea UD N/A 09/28/16 15:30 10/28/16 15:29 Levofloxacin (Consult) 1 ea UD N/A 09/28/16 15:45 10/28/16 15:44 Heparin Sodium (Porcine) 5 ml 5 ml PRN PRN IV 09/29/16 03:45 10/29/16 03:44 09/30/16 17:43 5 ML Methylprednisolone Sodium Succinate/ Syringe (Solu-Medrol IV/ Syringe) 0.64 ml @ 1.5 mls/min BID IV 09/29/16 10:00 10/29/16 09:59 10/02/16 08:37 1.5 MLS/MIN Pantoprazole Sodium (Protonix Tab) 40 mg QAM PO 09/30/16 09:00 10/30/16 08:59 10/02/16 08:38 40 MG Fentanyl (Duragesic Patch) 25 mcg Q72H TD 09/29/16 21:00 10/13/16 20:59 09/29/16 21:23 25 MCG Miscellaneous (Fentanyl Patch Remove & Waste) 1 ea Q3D@2059 N/A 10/02/16 20:59 11/01/16 20:58 Miscellaneous Information (Check Fentanyl Patch Placement) 1 ea QS N/A 09/30/16 00:00 10/30/16 00:00 10/02/16 08:00 1 EA Ipratropium [place] (Atrovent 0.02% 0.5MG/2.5ML Neb) 0.5 mg Q6R INH 09/30/16 15:00 10/30/16 14:59 10/02/16 14:34 0.5 MG Levalbuterol 1.25 mg 1.25 mg Q6R INH 09/30/16 15:00 10/30/16 14:59 10/02/16 14:34 1.25 MG Sodium Chloride 1,000 ml @ 80 mls/hr [id number] IV 09/30/16 12:00 10/30/16 11:59 10/02/16 02:22 80 MLS/HR Heparin Sodium/ Dextrose 500 ml @ 14 mls/hr Q24H IV 10/02/16 04:00 11/01/16 03:59 10/02/16 04:00 16 MLS/HR Vancomycin HCl/ Sodium Chloride (Vancomycin Inj/ Nss 250ml) 264 ml @ 125 mls/hr Q36H IV 10/02/16 12:00 10/09/16 11:59 10/02/16 12:18 125 MLS/HR I & O: 24-Hour Column 10/02/16 08:00 Intake Total 2439 ml Output Total 300 ml Balance 2139 ml Vital Signs: Date Time Temp Pulse Resp B/P Pulse Ox O2 Delivery O2 Flow Rate FiO2 10/02/16 14:37 110 24 90 Nasal Cannula 45.0 90 10/02/16 12:10 36.8 113 22 114/69 89 10/02/16 12:00 87 High Flow Oxygen 90 10/02/16 08:00 87 High Flow Oxygen 90 10/02/16 07:56 36.9 130 18 133/82 89 10/02/16 07:16 120 24 90 Nasal Cannula 45.0 85 10/02/16 04:00 High Flow Oxygen 45.0 80 10/02/16 03:45 36.0 126 24 128/81 86 High Flow Oxygen 10/02/16 01:35 113 24 90 Nasal Cannula 45.0 80 10/02/16 00:00 89 High Flow Oxygen 45.0 80 10/02/16 00:00 36.4 125 20 101/77 89 High Flow Oxygen 10/01/16 20:01 High Flow Oxygen 45.0 80 10/01/16 19:34 36.6 66 20 115/76 95 10/01/16 18:59 109 22 92 Nasal Cannula 45.0 80 10/01/16 16:08 36.5 63 18 109/74 95 10/01/16 16:00 High Flow Oxygen 45.0 80 Laboratory Results: Last 24 Hours Test 10/02/16 05:00 10/02/16 09:49 White Blood Count 23.77 K/uL Red Blood Count 5.50 M/uL Hemoglobin 13.8 g/dL Hematocrit 42.2 % Mean Corpuscular Volume 76.7 fL Mean Corpuscular Hemoglobin 25.1 pg Mean Corpuscular Hemoglobin Concent 32.7 g/dl Platelet Count 113 K/uL Neutrophils (%) (Auto) 93.8 % Lymphocytes (%) (Auto) 2.9 % Monocytes (%) (Auto) 1.3 % Eosinophils (%) (Auto) 0.0 % Basophils (%) (Auto) 0.2 % Neutrophils # (Auto) 22.31 K/uL Lymphocytes # (Auto) 0.68 K/uL Monocytes # (Auto) 0.30 K/uL Eosinophils # (Auto) 0.00 K/uL Basophils # (Auto) 0.05 K/uL RDW Standard Deviation 55.8 fL RDW Coefficient of Variation 19.9 % Immature Granulocyte % (Auto) 1.8 % Immature Granulocyte # (Auto) 0.43 K/uL Nucleated RBC Absolute Count (auto) 0.06 K/uL Nucleated Red Blood Cells % 0.3 % Platelet Estimate DECREASED Spherocytes 1+ Echinocytes 2+ Sodium Level 140 mmol/L 140 mmol/L Potassium Level 4.1 mmol/L 4.4 mmol/L Chloride Level 109 mmol/L 109 mmol/L Carbon Dioxide Level 19 mmol/L 17 mmol/L Anion Gap 12.0 mmol/L 14.0 mmol/L Blood Urea Nitrogen 38 mg/dl 40 mg/dl Creatinine 1.40 mg/dl 1.50 mg/dl Est Creatinine Clear Calc Drug Dose 25.9 ml/min 24.1 ml/min Estimated GFR () 44.3 40.8 Estimated GFR (Non- 38.2 35.2 BUN/Creatinine Ratio 27.0 26.8 Random Glucose 142 mg/dl 141 mg/dl Calcium Level 9.6 mg/dl 9.6 mg/dl Activated Partial Thromboplast Time 77.7 SECONDS Partial Thromboplastin Ratio 3.0 Vancomycin Level Trough 9.8 mcg/ml
--- NOTE | 2016-10-02 16:11 | Palliative Care Progress Note ---
Palliative Care Progress Note Date of Service October 02, 2016. Subjective Pt evaluation today including: conversation w/ patient, conversation w/ family (sister, Iliana Hutson) Patient's condition is worsening despite treatment. She is truly coming to the end of life, possibly down to days. I had a very xuan discussion about this with her and her sister, with the patient's permission. Iliana, the patient's sister, is not coping well with this at all. She was lying over the patient's lap sobbing, saying, "I just can't live without you. You can't leave me." The patient looks to be distressed, not only with shortness of breath, but also mentally. She appears exhausted and uncomfortable. Every time I ask the patient what she thinks or ask if she'd like to be made more comfortable, just keeps looking at her sister and does not answer. I feel that Iliana's distress is causing the patient stress and anxiety. For now, continue current treatment per patient's wishes. I did speak with the patient and sister about transferring to [facility] and focusing more on comfort and they seem to be amenable. They do not want to discontinue IVF, abx, or IV heparin at this time. I offered my support, the patient and sister were appreciative and still very pleasant. Full physical exam not completed at their request, but I did reposition patient in bed. I wish I had more to offer at this point. Review of Systems full ROS not obtained. denies any pain, c/o SOB Objective Vital Signs Date Time Temp Pulse Resp B/P Pulse Ox O2 Delivery O2 Flow Rate FiO2 10/02/16 15:38 36.2 140 22 93/65 85 High Flow Oxygen 10/02/16 14:37 110 24 90 Nasal Cannula 45.0 90 10/02/16 12:10 36.8 113 22 114/69 89 10/02/16 12:00 87 High Flow Oxygen 90 10/02/16 08:00 87 High Flow Oxygen 90 10/02/16 07:56 36.9 130 18 133/82 89 10/02/16 07:16 120 24 90 Nasal Cannula 45.0 85 10/02/16 04:00 High Flow Oxygen 45.0 80 10/02/16 03:45 36.0 126 24 128/81 86 High Flow Oxygen 10/02/16 01:35 113 24 90 Nasal Cannula 45.0 80 10/02/16 00:00 89 High Flow Oxygen 45.0 80 10/02/16 00:00 36.4 125 20 101/77 89 High Flow Oxygen 10/01/16 20:01 High Flow Oxygen 45.0 80 10/01/16 19:34 36.6 66 20 115/76 95 10/01/16 18:59 109 22 92 Nasal Cannula 45.0 80 10/01/16 16:08 36.5 63 18 109/74 95 10/01/16 16:00 High Flow Oxygen 45.0 80 Physical Exam General Appearance: + moderate distress, + cachetic, + thin ENT: hearing grossly normal Neck: supple, no JVD Respiratory/Chest: + respiratory distress (dyspneic and tachypneic, really this is patient's norm at this point), + pertinent finding (high-flow nasal cannula) Cardiovascular: + tachycardia, + pertinent finding (+2 pitting edmea to all extremities) Neurologic/Psychiatric: alert, oriented x 3 Assessment and Plan Problem list: Dyspnea/SOB/respiratory failure ?Pneumonitis Sigmoid adenocarcinoma with widespread metastatic disease Malnutrition/low BMI Weight loss Goals of care (Z51.5) Palliative care plan: -Continue current treatment per patient's wishes. -Remains level 5 DNR/DNI. -Patient and sister resistant to completing living will. -Would speak with them again about at least transferring to [facility] and increasing focus on comfort and symptom management. -Continue IV morphine. Recommend adding atropine drops for secretions, patient sounds moist in throat. I will follow as needed. Palliative Performance Scale: 20 % Continued [facility] stay due to: multiple IV medications needed Discharge planning: uncertain
[2016-10-02 18:29] LABS: PARTIAL THROMBOPLASTIN RATIO 4.5
[2016-10-02] MEDS: FENTANYL PATCH REMOVE & WASTE SCH (20:59)
[2016-10-02] MEDS: FENTANYL 25 MCG/HR TDSY TD SCH (21:32)
[2016-10-03] VITALS: O2SAT 87
[2016-10-03] MEDS: MoRPHine SULFATE 2 MG/ML CARP IV PRN ×3 (01:37→08:51)
[2016-10-03] MEDS: IPRATROPIUM BROMIDE NEB SOLN 0.02% 2.5 ML VIAL INH SCH ×2 (02:08→07:24)
[2016-10-03] MEDS: LEVALBUTEROL 1.25MG/0.5ML NEB INH SCH ×2 (02:08→07:24)
[2016-10-03 02:28] LABS: PARTIAL THROMBOPLASTIN RATIO 2.7
[2016-10-03] MEDS: PIPERACILL/TAZOBAC IV 3.375 GM in DEXTROSE 5% 100ML 100 ML IV SCH (02:37)
[2016-10-03 04:00] VITALS: O2SAT 87
[2016-10-03] MEDS: LIDOCAINE HCL 2% VISCOUS SOLN 60 ML, DiphenhydrAMINE HCL SYRUP 150 MG, ALUMINUM/MAGNESI... MT SCH ×12 (04:00→11:35)
[2016-10-03 04:30] VITALS: BP 94/62; PULSE 126; TEMP 36.2; O2SAT 86
[2016-10-03 06:29] LABS: MEAN CORPUSCULAR HGB CONC 33.1 g/dl (32-36)
[2016-10-03 06:37] LABS: HEMATOCRIT 42.9 % (37-47); MEAN CELL VOLUME 76.2 fL (80-100); MEAN CORPUSCULAR HEMOGLOBIN 25.2 pg (25-34); RED BLOOD COUNT 5.63 M/uL (4.2-5.4); WHITE BLOOD COUNT 26.11 K/uL (4.8-10.8)
[2016-10-03 06:50] LABS: PARTIAL THROMBOPLASTIN RATIO 4.1
[2016-10-03 07:04] LABS: PLATELET COUNT 114 K/uL (130-400)
[2016-10-03 07:05] LABS: ANISOCYTOSIS PRESENT; BASO % 0.3 %; BASO ABS # 0.07 K/uL (0-0.2); COMPLETE YES; ECHINOCYTES 2+; IG% 3.6 %; LYMPH % 1.4 %; LYMPH ABS # 0.36 K/uL (1.2-3.4); MONO % 2.5 %; NEUT % 92.2 %; PLT ESTIMATE DECREASED
[2016-10-03 07:08] LABS: BUN/CREATININE RATIO 25.4 (10-20); CALCIUM 9.5 mg/dl (8.5-10.1); CREATININE 1.9 mg/dl (0.60-1.20); POTASSIUM 4.5 mmol/L (3.5-5.1)
[2016-10-03 08:00] VITALS: O2SAT 86
[2016-10-03] MEDS: CHECK FENTANYL PATCH PLACEMENT SCH (08:00)
[2016-10-03 08:44] VITALS: BP 130/110; PULSE 121; TEMP 36.4; O2SAT 87
[2016-10-03] MEDS: METHYLPREDNISOLONE IV 40 MG in SYRINGE 0 ML IV SCH (08:47)
[2016-10-03] MEDS: PANTOprazole SOD 40 MG TAB PO SCH (08:49)
[2016-10-03 09:46] LABS: PARTIAL THROMBOPLASTIN RATIO 2.2
[2016-10-03 12:00] VITALS: O2SAT 86
--- NOTE | 2016-10-03 12:43 | Progress Note ---
Subjective Date of Service: October 03, 2016. Subjective Pt evaluation today including: conversation w/ family, physical exam, chart review, lab review, review of studies, review of inpatient medication list Patient has been not since last night, is agonal breathing, blood pressure at 50s, sister in the bedside Problem List Medical Problems: (1) Pneumonia Status: Acute (2) Sepsis Status: Acute Review of Systems Constitutional: + problem reported (not able to obtain) Objective Vital Signs Date Time Temp Pulse Resp B/P Pulse Ox O2 Delivery O2 Flow Rate FiO2 10/03/16 08:44 36.4 121 26 130/110 87 High Flow Oxygen 90 10/03/16 08:00 86 High Flow Oxygen 90 10/03/16 04:30 36.2 126 22 94/62 86 High Flow Oxygen 90 10/03/16 04:00 87 High Flow Oxygen 90 10/03/16 00:00 87 High Flow Oxygen 90 10/02/16 23:33 36.3 126 22 96/64 87 High Flow Oxygen 90 10/02/16 20:30 36.4 131 24 78/54 87 High Flow Oxygen 10.0 90 10/02/16 20:00 87 High Flow Oxygen 90 10/02/16 16:00 85 High Flow Oxygen 90 10/02/16 15:38 36.2 140 22 93/65 85 High Flow Oxygen 10/02/16 14:37 110 24 90 Nasal Cannula 45.0 90 Physical Exam General Appearance: + cachetic, + thin, + pertinent finding (pale, not applicable, labored breathing) Respiratory/Chest: + decreased breath sounds, + crackles, + rales, + rhonchi, + wheezing Cardiovascular: + tachycardia Abdomen: soft Extremities: no pedal edema Neurologic/Psychiatric: + pertinent finding (unconscious) Skin: normal color Laboratory Results Last 24 Hours Test 10/02/16 17:58 10/03/16 02:00 10/03/16 05:22 10/03/16 09:16 Activated Partial Thromboplast Time 118.2 SECONDS 70.7 SECONDS 106.3 SECONDS 57.5 SECONDS Partial Thromboplastin Ratio 4.5 2.7 4.1 2.2 White Blood Count 26.11 K/uL Red Blood Count 5.63 M/uL Hemoglobin 14.2 g/dL Hematocrit 42.9 % Mean Corpuscular Volume 76.2 fL Mean Corpuscular Hemoglobin 25.2 pg Mean Corpuscular Hemoglobin Concent 33.1 g/dl Platelet Count 114 K/uL Neutrophils (%) (Auto) 92.2 % Lymphocytes (%) (Auto) 1.4 % Monocytes (%) (Auto) 2.5 % Eosinophils (%) (Auto) 0.0 % Basophils (%) (Auto) 0.3 % Neutrophils # (Auto) 24.09 K/uL Lymphocytes # (Auto) 0.36 K/uL Monocytes # (Auto) 0.64 K/uL Eosinophils # (Auto) 0.00 K/uL Basophils # (Auto) 0.07 K/uL RDW Standard Deviation 55.8 fL RDW Coefficient of Variation 20.2 % Immature Granulocyte % (Auto) 3.6 % Immature Granulocyte # (Auto) 0.95 K/uL Nucleated RBC Absolute Count (auto) 0.20 K/uL Nucleated Red Blood Cells % 0.8 % Platelet Estimate DECREASED Anisocytosis PRESENT Echinocytes 2+ Sodium Level 141 mmol/L Potassium Level 4.5 mmol/L Chloride Level 108 mmol/L Carbon Dioxide Level 14 mmol/L Anion Gap 19.0 mmol/L Blood Urea Nitrogen 48 mg/dl Creatinine 1.90 mg/dl Est Creatinine Clear Calc Drug Dose 19.1 ml/min Estimated GFR () 30.6 Estimated GFR (Non- 26.4 BUN/Creatinine Ratio 25.4 Random Glucose 158 mg/dl Calcium Level 9.5 mg/dl Assessment and Plan 71-year-old white female admitted on 09/28/2016 to ICU because of sepsis pneumonia and acute respirator failure, continue getting worse Sepsis, possible pna with Ground glass opacity today is progressively getting worse per clinical exam and chest x-ray Pneumonia: Continue getting worse Acute respiratory failure with hypoxia, requiring higher level of oxygen: Obviously is getting worse 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, s/p IPC catheter on 09/28/2016, consistent with pulmonary infection or malignancy Adenocarcinoma of sigmoid colon with metastasis and possible malignant pleural effusion: Grave prognosis 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 Marinelli has discussed terminal prognosis Mediport in the right front chest Myocardial demand ischemia with Elevated troponin: acute kidney injury, with worst creatinine today Protein-calorie malnutrition Severe protein-calorie malnutrition IVC Thrombosis - DVT Prophylaxis: Transition to Lovenox CODE STATUS - Do not resuscitate With present of nurse, discussed with patient's sister, who is on the family of the patient, discuss above patient's multiple end-stage medical conditions, informed her that patient is active dying Sister agree and understand, agree to keep her comfort methods only, Morphine drip and scopolamine patch ordered Transfer to [facility] continue comfort methods if patient continued to be alive in 6 hour after initiating comfort methods Continued [facility] stay due to: home environment unsafe for pt Discharge planning: other
[2016-10-03] MEDS ORDERED: MoRPHine SULF/NSS 250MG/250ML 250 ML IV PRN (12:45)
[2016-10-03] MEDS ORDERED: SCOPOLAMINE 1.5 MG TDSY TD ONE (12:45)
[2016-10-03] MEDS ORDERED: NURSING VERBAL MED ORDER ONE (13:30)
[2016-10-03] MEDS ORDERED: PIPERACILL/TAZOBAC IV 3.375 GM in DEXTROSE 5% 100ML 100 ML IV SCH (14:00)
[2016-10-03] MEDS ORDERED: SCOPOLAMINE 1.5 MG TDSY TD SCH (14:00)
[2016-10-03] MEDS: FENTANYL PATCH REMOVE & WASTE SCH (14:04)
[2016-10-03] MEDS ORDERED: CHECK SCOPOLAMINE PATCH PLACEMENT SCH (16:00)
--- NOTE | 2016-10-03 16:27 | Death Summary ---
Summary of Admission Date September 28, 2016 at 13:22 Date & Time of October 03, 2016. 1515 Cause of Sepsis, pneumonia, IVC thrombosis, sigmoid colon cancer with metastasis. Malignant pleural effusion, Acute on chronic respiratory failure Acute on chronic kidney failure Secondary Diagnoses See above Hospital Course 71-year-old white female admitted on 09/28/2016 to ICU because of sepsis pneumonia and acute respirator failure, continue getting worse Sepsis, possible pna with Ground glass opacity, getting worse per clinical exam and chest x-ray Pneumonia: Continue getting worse Acute respiratory failure with hypoxia, requiring higher level of oxygen: Obviously is getting worse 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, s/p IPC catheter on 09/28/2016, consistent with pulmonary infection or malignancy Adenocarcinoma of sigmoid colon with metastasis and possible malignant pleural effusion: Grave prognosis 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 Marinelli has discussed terminal prognosis Mediport in the right front chest Myocardial demand ischemia with Elevated troponin: acute kidney injury, with worst creatinine today Protein-calorie malnutrition Severe protein-calorie malnutrition IVC Thrombosis - DVT Prophylaxis: Transition to Lovenox CODE STATUS - Do not resuscitate In this morning , With present of nurse, discussed with patient's sister, who is on the family of the patient, discuss above patient's multiple end-stage medical conditions, informed her that patient is active dying Sister agree and understand, agree to keep her comfort methods only, Morphine drip and scopolamine patch ordered Transfer to [address] continue comfort methods if patient continued to be alive in 6 hour after initiating comfort methods Patanol patient on 151, discussed with patient and sister, answered all questions Continued [facility] stay due to: home environment unsafe for pt Discharge planning: other
[2016-10-03] MEDS ORDERED: VANCOMYCIN TROUGH ONE (23:30)
[2016-10-06 13:28] LABS: LEGIONELLA ANTIGEN DETECTED (NOT DETECTED)
== END 2016-10-03 18:26 | disposition expired | DRG 871 ==
LOC: ENRESERVDT → ENRESERVTM → EDBD 09:53 → C.EDC 09:54 → C.MSICU 13:22 → EDBEDREQ 13:26 → C.2T 09-29 17:54 → C.4E 10-03 15:28
PROVIDERS: ADMIT Family Medicine; ATTEND Hospitalist
PROC: 0W9930Z Drainage of Right Pleural Cavity with Drainage Device, Percutaneous Approach (ICD-10-PCS; principal; 2016-09-28)
DX: A41.9 Sepsis, unspecified organism (principal); C79.61 Secondary malignant neoplasm of right ovary; C18.7 Malignant neoplasm of sigmoid colon; I82.220 Acute embolism and thrombosis of inferior vena cava; J91.0 Malignant pleural effusion; J96.21 Acute and chronic respiratory failure with hypoxia; N17.9 Acute kidney failure, unspecified; I24.8 Other forms of acute ischemic heart disease; E43 Unspecified severe protein-calorie malnutrition; J98.11 Atelectasis; Z51.5 Encounter for palliative care; Z68.1 Body mass index [BMI] 19.9 or less, adult; Z87.891 Personal history of nicotine dependence; N18.9 Chronic kidney disease, unspecified; Z66 Do not resuscitate; D69.6 Thrombocytopenia, unspecified; R65.20 Severe sepsis without septic shock